=== PATIENT | female | born 1945 | race Caucasian/White ===

== ENCOUNTER 2016-05-19 10:10 | Outpatient (CLI) | payer MEDICARE, BC ==
[~2016-05-19] VITALS: Ht 165.1 cm; Wt 90.9 kg
--- NOTE | ~2016-05-19 | HEMODYNAMI ---
PATIENT:JHON RAJAN MEDICAL RECORD: [id number] : 49 LOCATION:QIAN ADMISSION DATE: 05/19/16 Generatedon:05/19/201612:51 Patient name: JHON RAJAN Patient #: [id number] SSN: : 1945 Date of study: 05/19/2016 Page: Of Hemodynamic Procedure Report Patient Data Patient Demographics Procedure consent was obtained First Name: JHON Gender: Female Last Name: MOHINI : 1945 [facility] Initial: RAJI Age: 71 year(s) Patient #: [id number] Race: Additional ID: [id number] Contact details [address]: [address] [place] [address] State: [place] City: [place] Zip code: [address] Past Medical History History of disease Date Diagnosis Comments CAD Allergies: No known allergies Admission Admission Data Admission Date: 05/19/2016 Admission Time: 10:10 Admit Source: Other Insurance Payor: Private health insurance, Medicare Height (in.): 65 BSA: 1.98 (m2) Height (cm.): 165.1 BMI: 33.45 (kg/m2) Weight (lbs.): 201 Weight (kg.): 91.17 Lab Results Lab Result Date: 05/19/2016 Lab Result Time: 10:45 Biochemistry Name Units Result Min Max Creatinine mg/dl 0.7 --(*---)-- 0.6 1.3 CBC Name Units Result Min Max Hemoglobin g/dl 12.6 -*(----)-- 13.5 17.5 Procedure Procedure Types Cath Procedure Diagnostic Procedure LHC LH w/Coronaries PCI Procedure Coronary Stent Initial Miscellaneous Procedures Moderate Sedation up to 30 minutes Procedure Description Procedure Date Procedure Date: 05/19/2016 Procedure Start Time: 12:18 Procedure End Time: 12:49 Procedure Staff Name Function Yosvany Morales MD Performing Physician Ann Jimenez RT Scrub Roxie Johnson RN Nurse Blas Richard RT Monitor Mike Alarcon RT Monitor Procedure Data Cath Procedure Fluoroscopy Diagnostic fluoroscopy Total fluoroscopy Time: 5.2 time: 5.2 min min Diagnostic fluoroscopy Total fluoroscopy dose: 874 dose: 874 mGy mGy Contrast Material Contrast Material Type Amount (ml) Isovue 300 94 Entry Location Entry Primary Successful Side Size Upsize Upsize Entry Closure Succes sful Closure Location (Fr) 1 (Fr) 2 (Fr) Remarks Device Remarks Femoral Right 5 Fr 6 Fr Vascade artery Short Closure System Estimated blood loss: 10 ml Diagnostic catheters Device Type Used For End Catheter Placement Cordis 5Fr Pigtail Procedure Catheter (MP) Cordis 5Fr JL 4.0 Procedure Catheter (MP) Cordis 5Fr 3DRC Catheter Procedure (MP) Procedure Medications Medication Administration Route Dosage Oxygen NC 2 l/min Lidocaine 2% added to field 20 Heparin Flush Bag added to field 2 bags (1000units/500ml NS) 0.9% NaCl I.V. 100 ml/hr Versed I.V. 1 mg Fentanyl I.V. 50 mcg Versed I.V. 1 mg Fentanyl I.V. 50 mcg Versed I.V. 1 mg Fentanyl I.V. 50 mcg Heparin Bolus I.V. 4000 units Versed I.V. 1 mg Fentanyl I.V. 50 mcg Radial Cocktail added to field 1 syringe (Verapomil 2mg/Nitro 400mcg/Heparin 1500units) Hemodynamics Rest BSA: 1.98 (m2) HGB: 12.6 (g/dl) O2 Consumption: Estimated: 179.04 (ml/min) O2 Co nsumption indexed: Estimated:90.42 (ml/min/m) Heart Rate: 65 (bpm) Snapshots Pre Cath Intra NCS Post Cath Vital Signs Time Heart Resp SPO2 etCO2 [id number] NIBP (mmHg) Rhythm Pain Sedatio n Rate (ipm) (%) (mmHg) (mmHg) Status Level (bpm) 12:14:54 65 16 95 0 0 Measuring NSR 0 (11) 10(A) , No pain 12:15:27 74 14 95 0 0 194/86(132) NSR 0 (11) 10(A) , No pain 12:19:51 70 16 96 0 0 186/101(136) NSR 0 (11) 9(A) , No pain 12:24:22 81 16 95 0 0 183/120(138) NSR 0 (11) 9(A) , No pain 12:28:50 78 16 95 0 0 197/102(152) NSR 0 (11) 9(A) , No pain 12:34:22 77 16 96 0 0 160/90(130) NSR 0 (11) 9(A) , No pain 12:39:48 79 17 97 0 0 169/94(133) NSR 0 (11) 10(A) , No pain 12:44:47 77 7 97 0 0 Measuring NSR 0 (11) 10(A) , No pain 12:45:15 97 0 0 163/87(130) NSR 0 (11) 10(A) , No pain Medications Time Medication Route Dose Verified Delivered Reason Note s Effectiveness by by 12:12:28 Oxygen NC 2 l/min Yosvany Buffie used for Carmen Johnson RN procedure 12:12:34 Lidocaine 2% added 20ml Yosvany Yosvany for local to vial Carmen Morales MD anesthetic field 12:12:39 Heparin Flush added 2 bags Yosvany Yosvany used for Bag to Carmen Morales MD procedure (1000units/500ml field NS) 12:12:49 0.9% NaCl I.V. 100 Yosvany Buffie Per physician ml/hr Carmen Johnson RN 12:13:59 Radial Cocktail added 1 Yosvany Buffie not (Verapomil to syringe Carmen Johnson RN used- 2mg/Nitro field femoral 400mcg/Heparin access 1500units) obtained 12:15:28 Versed I.V. 1 mg Yosvany Buffie for sedation Carmen Johnson RN 12:15:36 Fentanyl I.V. 50 mcg Yosvany Buffie for sedation Carmen Johnson RN 12:17:39 Versed I.V. 1 mg Yosvany Buffie for sedation Carmen Johnson RN 12:17:47 Fentanyl I.V. 50 mcg Yosvany Buffie for sedation Carmen Johnson RN 12:19:03 Versed I.V. 1 mg Yosvany Buffie for sedation Carmen Johnson RN 12:19:10 Fentanyl I.V. 50 mcg Yosvany Buffie for sedation Carmen Johnson RN 12:28:19 Heparin Bolus I.V. 4000 Yosvany Buffie for veri fied units Carmen Johnson RN anticoagulation with dr morales 12:32:22 Versed I.V. 1 mg Yosvany Faustin for sedation Carmen Johnson RN 12:32:25 Fentanyl I.V. 50 mcg Yosvany Faustin for sedation Carmen Johnson RN Procedure Log Time Note 11:30:50 Roxie Johnson RN sent for patient. Start room use. 11:50:56 Informed consent obtained and on chart 11:51:37 Patient Height : 65 inches 11:51:41 Patient Weight : 201 lbs 11:52:56 Time tracking: Regular hours 11:53:00 Plan of Care:Hemodynamics will remain stable., Cardiac rhythm will remain stable., Comfort level will be maintained., Respiratory function will remain adequate., Patient/ family verbilizes understanding of procedure., Procedure tolerated without complication., Recovers from procedure without complications.. 11:53:02 Diagnostic Cath status Elective 11:53:05 ACC Patient presents with Unstable Angina CCS Anginal Class 3--Marked limitation of physical activity, angina occurs with ordinary activity.. 11:53:53 H&P Date Dictated: 05/18/2016 Within 30 days and on chart., H&P Addendum completed by physician on day of procedure. (MUST COMPLETE FOR ALL OUTPATIENTS). 11:53:57 Admit Source: Other 11:54:07 Insurance Payor : Private health insurance, Medicare 11:55:39 Lab Result : Hemoglobin 12.6 g/dl 11:55:39 Lab Result : Creatinine 0.7 mg/dl 12:12:28 Oxygen 2 l/min NC was given by Roxie Johnson RN; used for procedure; 12:12:34 Lidocaine 2% 20ml vial added to field was given by Yosvany Morales MD; for local anesthetic; 12:12:39 Heparin Flush Bag (1000units/500ml NS) 2 bags added to field was given by Yosvany Morales MD; used for procedure; 12:12:49 0.9% NaCl 100 ml/hr I.V. was given by Roxie Johnson RN; Per physician; 12:13:03 Patient received from Outpatients to CCL 1 Alert and oriented. Tansferred to table in Supine position. 12:13:04 Warm blankets applied, and garrett hugger turned on for patient comfort. 12:13:04 Correct patient and procedure confirmed by team. 12:13:05 ECG and BP/O2 sat monitors applied to patient. 12:13:05 Vital chart was started 12:13:06 Baseline sample Acquired. 12:13:09 Rhythm: sinus rhythm 12:13:10 Full Disclosure recording started 12:13:10 Pre-procedure instructions explained to patient. 12:13:11 Pre-op teaching completed and patient verbalized understanding. 12:13:12 Family in waiting room. 12:13:14 Patient NPO since Midnight. 12:13:18 Patient allergic to No known allergies 12:13:20 Is the patient allergic to Iodine/contrast media? No. 12:13:21 Is patient on blood thinner?Yes 12:13:24 ACC The patient was administered the following blood thiners within the last 24 hours: ACCPlavix 12:13:25 Patient diabetic? Yes. 12:13:26 If diabetic: On Metformin? Yes 12:13:29 If on Metformin: Last Dose? 05/18/2016 12:13:33 Previous problem with sedation/anesthesia? No ? 12:13:33 Snore? Yes 12:13:34 Sleep apnea? No 12:13:35 Deviated septum? No 12:13:35 Opens mouth fully? Yes 12:13:36 Sticks out tongue? Yes 12:13:38 Airway obstruction? No ? 12:13:40 Dentures? No ? 12:13:42 Modified Chapo's test Ulnar < 7 seconds 12:13:44 Patient pain scale 2/10 ?. 12:13:50 IV patent on arrival in left hand with 0.9% NaCl at KVO. 12:13:55 Lab results completed and on chart. 12:13:59 Radial Cocktail (Verapomil 2mg/Nitro 400mcg/Heparin 1500units) 1 syringe added to field was given by Roxie Johnson RN; ; not used- femoral access obtained 12:13:59 Right Radial & Right Groin area was prepped with chlora-prep and draped in sterile fashion 12:14:00 Alarms reviewed by R. N. 12:14:00 Sharps counted by scrub and verified by R.N. 12:14:02 Use device set Radial Dx 12:14:04 Tegaderm 4 x 4 opened to sterile field. 12:14:04 Acist Manifold opened to sterile field. 12:14:05 Acist Hand Control opened to sterile field. 12:14:06 Acist Syringe opened to sterile field. 12:14:06 Cardinal Cath Pack opened to sterile field. 12:14:06 Bag Decanter opened to sterile field. 12:14:07 Terumo 6Fr Slender Glidesheath opened to sterile field. 12:14:07 St Mariano 260cm J .035 wire opened to sterile field. 12:14:14 Physician arrived 12::14 --------ALL STOP TIME OUT------ 12:14:15 Final Timeout: patient, procedure, and site verified with staff and physician. All members of the team are in agreement. 12:14:16 Right Radial & Right Groin site verified by team. 12:14:19 Physical assessment completed. ASA score P 2 - A patient with mild systemic disease as per Yosvany Morales MD. 12:14:22 Sedation plan: IV Moderate Sedation Versed, Fentanyl 12:15:28 Versed 1 mg I.V. was given by Roxie Johnson RN; for sedation; 12:15:36 Fentanyl 50 mcg I.V. was given by Roxie Johnson RN; for sedation; 12:17:39 Versed 1 mg I.V. was given by Roxie Johnson RN; for sedation; 12:17:47 Fentanyl 50 mcg I.V. was given by Roxie Johnson RN; for sedation; 12:18:01 Zero performed for pressure channel P1 12:18:40 Procedure started. 12:18:52 Local anesthetic to right radial artery with Lidocaine 2% by Yosvany Morales MD.INITIAL ACCESS ONLY 12:18:56 Local anesthetic to right femoral artery with Lidocaine 2% by Yosvany Morales MD.ADDITIONAL ACCESS 12:19:03 Versed 1 mg I.V. was given by Roxie Johnson RN; for sedation; 12:19:10 Fentanyl 50 mcg I.V. was given by Roxie Johnson RN; for sedation; 12:19:14 unable to gain radial access, moving to femoral approach. 12:19:58 Use device set Multipack Set 12:20:00 Cordis Infinity 5Fr Multipack catheter opened to sterile field. 12:20:08 Terumo 5Fr Ranger Sheath opened to sterile field. 12:20:11 A 5 Fr sheath was inserted into the Right Femoral artery 12:20:23 A Cordis 5Fr Pigtail Catheter (MP) was advanced over the wire and used for Procedure. 12:20:25 LV gram done using SHELDON 12:20:30 LV hemodynamics recorded. 12:20:35 Injector settings: Ml/sec: 10, Volume: 20, 12:20:50 EF : 50 % 12:20:57 Catheter exchanged over wire. 12:21:01 A Cordis 5Fr JL 4.0 Catheter (MP) was advanced over the wire and used for Procedure. 12:22:18 LCA angiography performed. 12:22:20 Catheter exchanged over wire. 12:22:25 A Cordis 5Fr 3DRC Catheter (MP) was advanced over the wire and used for Procedure. 12:23:00 RCA angiography performed. 12:23:49 Terumo 6Fr Ranger Sheath opened to sterile field. 12:23:56 Lopez Whisper J 300cm 0.014 guide wire opened to sterile field. 12:23:58 Madison Gambell Eagleye IVUS Catheter opened to sterile field. 12:24:07 [employer] BasixCompak Inflation Kit opened to sterile field. 12:24:11 Catheter removed. 12:24:31 Medtronic Launcher 6Fr 3DRC guide catheter opened to sterile field. 12:24:43 Sheath upsized to a 6 Fr Short. 12:24:52 6 Fr 3drc guide catheter was inserted over the wire 12:24:56 whisper wire advanced. 12:25:52 Wire advanced across lesion. 12:25:59 IVUS catheter advanced over wire. 12:26:02 IVUS pass to RCA lesion performed. 12:28:19 Heparin Bolus 4000 units I.V. was given by Roxie Johnson RN; for anticoagulation; verified with dr morales 12:30:40 IVUS catheter removed over wire. 12:31:17 ACC PCI Site: dRCA has 70% stenosis. 12:31:20 ACC Pre-intervention CASSIUS Flow is 2. 12:31:53 Inflation Number: 1 A Medtronic Integrity 4.0 X 18 stent was prepped and advanced across the Prox RCA. The stent was deployed at 13 SANTA for 0:10 (min:sec). 12:32:03 ACC Post-intervention CASSIUS Flow is 3. 12:32:03 Stent catheter was removed intact over wire. 12:32:22 Versed 1 mg I.V. was given by Roxie Johnson RN; for sedation; 12:32:25 Fentanyl 50 mcg I.V. was given by Roxie Johnson RN; for sedation; 12:33:54 Inflation Number: 1 A Medtronic Integrity 3.5 X 22 stent was prepped and advanced across the Dist RCA. The stent was deployed at 13 SANTA for 0:10 (min:sec). 12:34:43 Stent catheter was removed intact over wire. 12:35:00 Wire removed. 12:35:00 Guide catheter removed. 12:35:14 Vascade 6/7 Fr Closure Device opened to sterile field. 12:35:30 Sheath removed intact; hemostasis achieved with Vascade Closure System to the Right Femoral artery. 12:35:35 Procedure ended.(Physican Out) 12:37:08 Fluoroscopy time 05.20 minutes. 12:37:16 Fluoroscopy dose: 874 mGy 12:37:16 Flurop Dose total: 874 12:37:25 Contrast amount:Isovue 300 94ml. 12:37:27 Sharps counted by scrub and verified by R.N. 12:41:41 Insertion/operative site no bleeding no hematoma. 12:41:45 Post-op/insertion site Right Femoral artery dressed using a 4 x 4 and Tegaderm. 12:41:53 Post right femoral artery:stable 12:42:07 Post Procedure Pulses reassessed and unchanged 12:42:18 Post-procedure physical assessment completed. ASA score P 2 - A patient with mild systemic disease as per Yosvany Morales MD. 12:42:23 Post procedure rhythm: unchanged. 12:42:28 Estimated blood loss: 10 ml 12:42:30 Post procedure instruction explained to patient.Patient verbalizes understanding. 12:42:31 Patient needs reinforcement of post procedure teaching. 12:44:30 Procedure type changed to Cath procedure, Diagnostic procedure, LHC, LHC w/Coronaries, PCI procedure, Coronary Stent Initial, Miscellaneous Procedures, Moderate Sedation up to 30 minutes 12:48:02 Vital chart was stopped 12:48:03 See physician's report for complete and final results. 12:48:11 Report given to Post Procedure Room. 12:48:59 Patient transfered to Post Procedure Room with Stretcher. 12:49:03 Procedure ended. 12:49:04 Full Disclosure recording stopped 12:49:19 ACC-PCI Only Patient was given prescriptions, or instructed by Yosvany Morales MD to start/continue the following medications upon discharge: Plavix 12:49:32 End room use (Document Last) Intervention Summary Intervention Notes Time ActionType Lesion and Equipment Action# Pressure Duration Attributes Used 12:31:53 Place stent Prox RCA Medtronic 1 13 00:10 Integrity 4.0 X 18 stent 12:33:54 Place stent Dist RCA Medtronic 1 13 00:10 Integrity 3.5 X 22 stent Device Usage Item Name Manufacture Quantity Catalog Hospital Part Current Minima l Lot# / Number Charge Number Stock Stock Serial# Code Tegaderm 4 3M 1 1626W [id number] 780347 579571 5 x 4 Acist Acist 1 41249 834774 930805 432167 5 Manifold Medical Systems Inc Acist Hand Acist 1 11332 654623 388020 496593 5 Control Medical Systems Inc Acist Acist 1 28687 616041 509862 882951 20 Syringe Medical Systems Inc Cardinal Cardinal [address] 056122 94017 405001 5 Cath Pack Health Bag Microtek 1 2002S 379252 56925 233539 5 Navagis [employer] Inc. Terumo 6Fr Terumo 1 [id number] 447925 902750 077364 [address] Mariano St Mariano 1 160274 127551 178808 763472 30 260cm J .035 wire Cordis Cardinal 1 [id number] 557557 89681 215415 30 Infinity Health 5Fr Multipack catheter Terumo 5Fr Terumo 1 [id number] 906351 957305 413446 40 Ranger Sheath Cordis 5Fr Cardinal 1 285180 5 Pigtail Health Catheter (MP) Cordis 5Fr Cardinal 1 [id number] 5 JL 4.0 Health Catheter (MP) Cordis 5Fr Cardinal 1 370645 5 3DRC Health Catheter (MP) Terumo 6Fr Terumo 1 [id number] 022934 474140 934490 40 Ranger Sheath Lopez Lopez 1 [id number] 050146 649986 906275 5 Whisper J Vascular 300cm 0.014 guide wire Madison Madison 1 [id number] 464016 759337 348618 8 Gambell Eagleye IVUS Catheter Merit Merit 1 [id number] 840220 068804 610814 15 BasixCompak Medical Inflation Kit Medtronic Medtronic 1 [id number] 893045 178666 634715 1 Launcher 6Fr 3DRC guide catheter Medtronic Medtronic 1 [id number] 730051 384356 665994 5 [id number] Integrity 4.0 X 18 stent Medtronic Medtronic 1 [id number] 946818 875227 3 [id number] Integrity 3.5 X 22 stent Vascade 6/7 Cardiva 1 [id number] 159296 411072 631076 5 Fr Closure Medical, Device Inc. Signature Audit [place] Stage Time Signature Unsigned Intra-Procedure 05/19/2016 Mike Alarcon 12:51:29 PM RT(R) (CV) Signatures Monitor : Blas Richard RT Signature : Date : Time : Monitor : Mike Alarcon RT Signature : Date : Time : [place] [id number]
[~2016-05-19 10:10] MED LIST: ASPIRIN325 MG PO; BAYER ASPIRIN325 MG PO; BAYER CHEWABLE81 MG PO; EFFEXOR XR150 MG PO; EFFEXOR XR75 MG PO; EZFE 200200 MG; GLIMEPIRIDE4 MG PO; GLUCOPHAGE500 MG PO; JANUVIA100 MG PO; LOPRESSOR50 MG PO; MACROBID100 MG PO; MELATONIN 3 MG1 TAB PO; METOPROLOL TART50 MG PO; MICROBID PO; MULTI-DAY VITAM1 TAB PO; PEPCID20 MG; PLAVIX75 MG PO; PRAVACHOL20 MG PO; PRAVACHOL40 MG PO; PRINZIDE 10/12.1 TAB PO; PROTONIX40 MG PO; SYNTHROID75 MCG PO; SYNTHROID88 MCG PO; VITAMIN D2000 UNIT PO
[2016-05-19 10:39] VITALS: BP 171/69; Ht 165.1 cm; Wt 90.9 kg
[2016-05-19] MEDS ORDERED: MACROBID100 MG PO (10:47)
[2016-05-19 10:48] LABS: BASOPHILS 0.1 % (0.0-2.0); EOSINOPHILS 3.2 % (0-7); HEMATOCRIT 39.5 % (36.0-48.0); HEMOGLOBIN 12.6 g/dL (12-16); IMMATURE GRANULOCYTES 0.3 % (0-5); LYMPHOCYTES 35.8 % (15-50); MCH 29.2 pg (26.0-34.0); MCHC 31.9 g/dL (31.0-37.0); MCV 91.4 fL (80.0-100.0); MEAN PLATELET VOLUME 10.8 fL (7.4-10.4); MONOCYTES 8.9 % (2-11); NEUTROPHILS 51.7 % (40-80); PLATELET COUNT 261 10x3/uL (130-400); RBC 4.32 10x6/uL (4.00-5.40); RDW 13.9 % (11.5-14.5); WBC 7.3 10x3/uL (4.8-10.8)
[2016-05-19 11:08] LABS: CALC OSMOLALITY 286 mosm/kg (275-300); CALCIUM 8.9 mg/dL (8.5-10.1); CARBON DIOXIDE 31.8 mmol/L (21.0-32.0); CHLORIDE - SERUM 101 mmol/L (98-107); CREATININE - SERUM 0.7 mg/dL (0.6-1.3); GLUCOSE 257 mg/dL (74-106); POTASSIUM - SERUM 4.3 mmol/L (3.5-5.1); SODIUM 139 mmol/L (136-145); UREA NITROGEN 13 mg/dL (7-18); eGFR NON AFRICAN AMERICAN 88 mL/min (90-120)
[2016-05-19] MEDS ORDERED: NORVASC5 MG PO (13:01)
--- NOTE | 2016-05-19 13:15 | NUR ---
1315-RIGHT GROIN- CDI NO HEMATOMA NOTED.
--- NOTE | 2016-05-19 13:59 | OP ---
PATIENT NAME: JHON RAJAN MEDICAL RECORD: [id number] :49 LOCATION:D.CAT ADMISSION DATE: SURGEON: VENKAT TEJEDA MD DATE OF OPERATION: 05/19/2016 PROCEDURES: 1. PTCA stent, RCA. 2. Intravascular ultrasound, RCA. 3. Left heart catheterization. 4. Selective coronary angiography. 5. Left ventriculogram. INDICATIONS: Angina and coronary artery disease. PROCEDURE IN DETAIL: After informed consent was obtained and after a detailed explanation of risks, benefits as well as alternative therapies, the patient elected to proceed with angiogram and angioplasty. The right femoral area was prepped and draped in normal sterile fashion. The right femoral artery was cannulated via modified Seldinger technique with placement of 6-Faroese sheath. All catheters exchanged through this sheath. FINDINGS: Left ventriculogram was performed in standard 30-degree SHELDON view, reveals good cardiac wall motion throughout all segments. Overall ejection fraction estimated at 60%. SELECTIVE CORONARY ANGIOGRAPHY: 1. Left main showed no significant angiographic disease. 2. Left anterior descending has previously placed stents, these are widely patent with no significant restenosis. 3. Left circumflex has moderate irregularities, but no flow-limiting stenosis. 4. The right coronary has previously placed stents, these are widely patient; however, intravascular ultrasound confirmed that there is 75% stenosis proximal and distal to the previously-placed stent. PTCA STENT OF THE RCA: The stent used proximal was 4.0 x 18 and distal was a 3.5 x 22, both Integrity stents. Result was 0% residual stenosis. OVERALL IMPRESSION: Successful percutaneous transluminal coronary angioplasty stent of the right coronary artery going from 75% initial stenosis times 2 to 0% residual. TRANSINT:[id number] Voice Confirmation ID: [id number] DOCUMENT ID: [id number] VENKAT TEJEDA MD at 1359 CC: [id number] DICTATION DATE: 05/19/16 1238 SCREW EYE ASSEMBLER: 05/19/16 [address] [place] [address]
--- NOTE | 2016-05-19 14:21 | NUR ---
1345-right groin- cdi
--- NOTE | 2016-07-07 08:41 | HP ---
PATIENT: JHON RAJAN MEDICAL RECORD: [id number] ACCOUNT: [id number] LOCATION:QIAN : 49 ADMISSION DATE: 05/19/16 HISTORY AND PHYSICAL EXAMINATION DIAGNOSES: 1. Angina. 2. Coronary artery disease. HISTORY OF PRESENT ILLNESS: Mrs. Rajan presents with increasing episodes of chest pain, chest discomfort compatible with angina. She has a past history of coronary artery disease. Her angina is increasing in an unstable fashion. PHYSICAL EXAMINATION: GENERAL APPEARANCE: Well-nourished, well-developed, appears stated age. Level of distress, comfortable. PSYCHIATRIC: Mental status, alert, normal affect. Orientation, oriented to time, place and person. EYES: Lids and conjunctiva, noninjected. No discharge, no pallor. ENT: Lips, teeth, gums, normal dentition. Oropharynx, no cyanosis, no pallor. NECK: Carotid arteries, bilateral normal upstroke, no bruits, no thrills. JUGULAR VEINS: No jugular venous pressure or distention. CERVICAL LYMPH NODES: Nontender, nonenlarged. THYROID: Not enlarged. Nontender. No nodules. LUNGS: Respiratory effort, unlabored. CHEST: Normal curvature. No thoracic deformity. No chest wall tenderness. Percussion, resonant. Auscultation, clear. No wheezes, no rales, no rhonchi. CARDIOVASCULAR: Precordial exam, nondisplaced. No heaves or pericardial thrills. Rate and rhythm, regular. Heart sounds, normal S1, normal S2. No S3, no gallop, no rub. Systolic murmur, not heard. Diastolic murmur, not heard. EXTREMITIES: No cyanosis, no edema. Peripheral pulses, full and equal in all extremities, except as noted. No bruits appreciated. ABDOMEN: Soft, nondistended. Normal aorta. No bruit. Nontender. No masses. Liver, nontender, no hepatomegaly. Spleen, nontender, no splenomegaly. MUSCULOSKELETAL: No joint tenderness. No joint swelling. No erythema. NEUROLOGICAL: Normal gait, normal strength, normal tone. SKIN: Warm and dry. REVIEW OF SYSTEMS: The patient reports easy bruising but reports no swollen glands. The patient reports no fever, no night sweats, no significant weight gain, no significant weight loss. No significant exercise tolerance. The patient reports no dry eyes, no irritation, no vision change. Patient reports no difficulty hearing and no ear pain. Patient reports no frequent nose bleeds or nose and sinus problems. Patient reports on arm pain on exertion. No shortness of breath while lying down. No history of heart murmur. Patient reports no cough, no wheezing or coughing up blood. Patient reports no abdominal pain, no vomiting. Normal appetite. No diarrhea and not vomiting blood. No nausea and no constipation. Patient reports no incontinence. No difficulty urinating. No hematuria. No increased frequency. Patient reports no muscle aches. No weakness, no arthralgias, no back pain. No swelling of the extremities. Patient reports no abnormal mole, no jaundice, no rashes. Reports no loss of consciousness. No weakness and no numbness. No seizures, dizziness, or headaches. The patient reports no depression, no sleep disturbance, feeling safe in a relationship and no alcohol abuse. Patient reports on fatigue. Reports no runny nose or sinus pressure. No itching, no hives, and no frequent HISTORY AND PHYSICAL [id number] JHON RAJAN sneezing. OVERALL IMPRESSION: Angina, unstable fashion, most likely she has hemodynamically significant coronary artery disease that is recurrent. We will proceed with coronary angiography. Further care depends upon findings of the angiography. TRANSINT:[id number] Voice Confirmation ID: [id number] DOCUMENT ID: [id number] VENKAT TEJEDA MD at 0841 CC: [id number] DICTATION DATE: 07/05/[address] INSPECTOR: 07/05/16 1636 DEP CLI 05/19/16 [place] [id number] [place] [id number]
== END 2016-05-19 17:00 | disposition home or self-care (01) ==
LOC: D.CATH 10:10
PROVIDERS: Internal Medicine Interventional Cardiology
DX: I25.119 Atherosclerotic heart disease of native coronary artery with unspecified angina pectoris (principal); Z95.5 Presence of coronary angioplasty implant and graft

== ENCOUNTER 2017-05-23 08:27 | Observation (INO) | payer MEDICARE, BC ==
[~2017-05-23] VITALS: Ht 165.1 cm; Wt 47.3 kg
--- NOTE | ~2017-05-23 | HEMODYNAMI ---
PATIENT:JHON RAJAN MEDICAL RECORD: [id number] : 49 LOCATION:[facility] ADMISSION DATE: 05/23/17 Generatedon:05/23/201712:06 Patient name: JHON RAJAN Patient #: [id number] SSN: : 1945 Date of study: 05/23/2017 Page: Of Hemodynamic Procedure Report Patient Data Patient Demographics Procedure consent was obtained First Name: JHON Gender: Female Last Name: MOHINI : 1945 Middle Initial: RAJI Age: 72 year(s) Patient #: [id number] Race: Additional ID: [id number] Contact details Address: [address] [place] [address] State: [place] City: [place] Zip code: [address] Past Medical History History of disease Date Diagnosis Comments CAD Allergies: No known allergies Admission Admission Data Admission Date: 05/23/2017 Admission Time: 8:27 Lab Results Lab Result Date: 05/23/2017 Lab Result Time: 0:00 Biochemistry Name Units Result Min Max BUN mg/dl 14 --(--*-)-- 7 18 Creatinine mg/dl 0.8 --(-*--)-- 0.6 1.3 CBC Name Units Result Min Max Hemoglobin g/dl 12.7 -*(----)-- 13.5 17.5 Procedure Procedure Types Cath Procedure Diagnostic Procedure [facility] w/Coronaries FFR/IVUS Intra-Coronary IVUS Initial PCI Procedure Coronary Stent Coronary Stent Initial Procedure Description Procedure Date Procedure Date: 05/23/2017 Procedure Start Time: 11:45 Procedure End Time: 12:04 Procedure Staff Name Function Roxie Johnson RN Linen Folder Yosvany Morales MD Performing Physician Blas Richard RT Monitor Kiersten Flores RT Scrub Sanju Baker RN Nurse Procedure Data Cath Procedure Fluoroscopy Diagnostic fluoroscopy Total fluoroscopy Time: 4.3 time: 4.3 min min Diagnostic fluoroscopy Total fluoroscopy dose: 586 dose: 586 mGy mGy Contrast Material Contrast Material Type Amount (ml) Isovue 300 63 Entry Location Entry Primary Successful Side Size Upsize Upsize Entry Closure [place] ccessful Closure Location (Fr) 1 (Fr) 2 (Fr) Remarks Device Remarks Radial Right 6 Fr Mechanical artery Short Compression Estimated blood loss: 10 ml Diagnostic catheters Device Type Used For End Catheter Placement DIAGNOSTIC Dundee 110cm 5 Procedure Fr catheter ([id number]) Procedure Complications No complications Procedure Medications Medication Administration Route Dosage 0.9% NaCl I.V. 100 ml/hr Oxygen NC 2 l/min Heparin Flush Bag added to field 2 bags (1000units/500ml NS) Lidocaine 2% added to field 20 Radial Cocktail added to field 1 syringe (Verapomil 2mg/Nitro 400mcg/Heparin 1500units) Versed I.V. 1 mg Fentanyl I.V. 50 mcg Radial Cocktail I.A. 1 syringe (Verapomil 2mg/Nitro 400mcg/Heparin 1500units) Heparin Bolus I.V. 4000 units Versed I.V. 1 mg Fentanyl I.V. 50 mcg Plavix P.O. 75 mg Hemodynamics Rest HGB: 12.7 (g/dl) Heart Rate: 80 (bpm) Pressure Samples Time Site Value (mmHg) Purpose Heart Use Rate(bpm) 11:46 LV 39/39,35 Snapshot 105 Snapshots Pre Cath Intra NCS Post Cath Vital Signs Time Heart Resp SPO2 etCO2 NIBP (mmHg) Rhythm Pain Sedation Rate (ipm) (%) (mmHg) Status Level (bpm) 11:37:21 75 14 97 45.7 164/73(122) NSR 0 (11) 10(A) , No pain 11:42:09 90 18 97 47.9 159/81(112) NSR 0 (11) 10(A) , No pain 11:46:50 80 16 98 42.6 131/78(123) NSR 0 (11) 9(A) , No pain 11:52:18 90 18 96 42.6 153/72(107) NSR 0 (11) 9(A) , No pain 11:57:06 83 14 98 42.6 152/75(130) NSR 0 (11) 10(A) , No pain 12:01:55 81 17 98 44.9 153/79(128) NSR 0 (11) 10(A) , No pain Medications Time Medication Route Dose Verified Delivered Reason Note s Effectiveness by by 11:35:31 0.9% NaCl I.V. 100 Sanju Sanju Per physician ml/hr Olivia Baker RN RN 11:35:42 Oxygen NC 2 l/min Sanju Sanju Per physician Olivia Baker RN RN 11:35:58 Heparin Flush added 2 bags Sanju Sanju used for Bag to Olivia Baker procedure (1000units/500ml field RN RN NS) 11:36:11 Lidocaine 2% added 20ml Sanju Sanju for local to vial Lorbhavesh Baker anesthetic RN RN 11:39:37 Radial Cocktail added 1 Sanju Sanju used for (Verapomil to syringe Olivia Baker procedure 2mg/Nitro field RN RN 400mcg/Heparin 1500units) 11:43:12 Fentanyl I.V. 50 mcg Sanju Sanju for sedation Olivia Baker RN RN 11:43:25 Versed I.V. 1 mg Sanju Sanju for sedation Olivia Baker RN RN 11:46:09 Radial Cocktail I.A. 1 Sanju Yosvany for (Verapomil syringe Olivia Morales MD vasodilation 2mg/Nitro RN 400mcg/Heparin 1500units) 11:51:04 Heparin Bolus I.V. 4000 Sanju Sanju for units Olivia Baker anticoagulation RN RN 11:55:04 Versed I.V. 1 mg Sanju Sanju for sedation Olivia Baker RN RN 11:55:13 Fentanyl I.V. 50 mcg Sanju Sanju for sedation Olivia Baker RN RN 11:56:41 Plavix P.O. 75 mg Sanju Sanju for Olivia Baker antiplatelet RN RN therapy Procedure Log Time Note 11:16:06 Roxie Johnson RN sent for patient. Start room use. 11:16:06 Time tracking: Regular hours 11:16:11 Plan of Care:Hemodynamics will remain stable., Cardiac rhythm will remain stable., Comfort level will be maintained., Respiratory function will remain adequate., Patient/ family verbilizes understanding of procedure., Procedure tolerated without complication., Recovers from procedure without complications.. 11:16:20 Signed procedure consent form obtained from patient. 11:16:27 H&P Date Dictated: 05/22/2017 Within 30 days and on chart., H&P Addendum completed by physician on day of procedure. (MUST COMPLETE FOR ALL OUTPATIENTS). 11::44 Lab Result : BUN 14 mg/dl 11::44 Lab Result : Creatinine 0.8 mg/dl ::44 Lab Result : Hemoglobin 12.7 g/dl 11:18:29 Patient allergic to No known allergies 11:24:03 Patient received from Pre/Post Procedure Room to CCL 1 Alert and oriented. Tansferred to table in Supine position. 11:24:04 Warm blankets applied, and garrett hugger turned on for patient comfort. 11:24:05 Correct patient and procedure confirmed by team. 11:24:06 ECG and BP/O2 sat monitors applied to patient. 11:24:07 Pre-procedure instructions explained to patient. 11:24:08 Pre-op teaching completed and patient verbalized understanding. 11:24:09 Family in waiting room. 11:24:11 Patient NPO since Midnight. 11:24:21 Is patient on blood thinner?No 11:35:31 0.9% NaCl 100 ml/hr I.V. was administered by Sanju Baker RN; Per physician; 11:35:42 Oxygen 2 l/min NC was administered by Sanju Baker RN; Per physician; 11:35:58 Heparin Flush Bag (1000units/500ml NS) 2 bags added to field was administered by Sanju Baker RN; used for procedure; 11:36:11 Lidocaine 2% 20ml vial added to field was administered by Sanju Baker RN; for local anesthetic; 11:36:20 Vital chart was started 11:39:37 Radial Cocktail (Verapomil 2mg/Nitro 400mcg/Heparin 1500units) 1 syringe added to field was administered by Sanju Baker RN; used for procedure; 11:40:14 Diagnostic Cath status Elective 11:40:15 Baseline sample Acquired. 11:40:19 Rhythm: sinus rhythm 11:40:38 Is the patient allergic to Iodine/contrast media? No. 11:40:39 Patient diabetic? Yes. 11:40:41 If diabetic: On Metformin? Yes 11:40:44 If on Metformin: Last Dose? 05/21/2017 11:40:47 Previous problem with sedation/anesthesia? No ? 11:40:52 Snore? No 11:40:54 Sleep apnea? No 11:40:54 Deviated septum? No 11:40:55 Opens mouth fully? Yes 11:40:56 Sticks out tongue? Yes 11:40:58 Airway obstruction? No ? 11:41:00 Dentures? Yes upper 11:41:03 Pre procedure: right dorsailis pedis pulse 1+ Palpable, but thready & weak; easily obliterated 11:41:06 Modified Chapo's test Ulnar < 7 seconds 11:41:07 Patient pain scale 0/10 ?. 11:41:11 IV patent on arrival in left forearm with 0.9% NaCl at [facility]. 11:41:14 Lab results completed and on chart. 11:41:16 Right Radial & Right Groin area was prepped with chlora-prep and draped in sterile fashion 11:41:17 Alarms reviewed by R. N. 11:41:18 Sharps counted by scrub and verified by R.N. 11:41:20 Use device set Radial Dx or PCI 11:41:21 ACIST Syringe (00652) opened to sterile field. 11:41:21 Medline Cath Pack ([id number]) opened to sterile field. 11:41:23 Bag Decanter (2002S) opened to sterile field. 11:41:24 Tegaderm 4 x 4 (1626W) opened to sterile field. 11:41:25 ACIST Manifold (21122) opened to sterile field. 11:41:25 ACIST Hand Control (94509) opened to sterile field. 11:41:26 MBrace Wrist Support ([id number]) opened to sterile field. 11:41:29 SHEATH 6FR Slender ([id number]) opened to sterile field. 11:42:09 Physician arrived 11:42:09 --------ALL STOP TIME OUT------ 11:42:10 Final Timeout: patient, procedure, and site verified with staff and physician. All members of the team are in agreement. 11:42:11 Right Radial & Right Groin site verified by team. 11:42:14 Physical assessment completed. ASA score P 2 - A patient with mild systemic disease as per Yosvany Morales MD. 11:42:18 Sedation plan: IV Moderate Sedation Medication:Versed, Fentanyl 11:43:12 Fentanyl 50 mcg I.V. was administered by Sanju Baker RN; for sedation; 11:43:25 Versed 1 mg I.V. was administered by Sanju Baker RN; for sedation; 11:45:21 Zero performed for pressure channel P1 11:45:47 Procedure started. 11:45:47 Full Disclosure recording started 11:45:53 Local anesthetic to right radial artery with Lidocaine 2% by Yosvany Morales MD.INITIAL ACCESS ONLY 11:45:59 A 6 Fr Short sheath was inserted into the Right Radial artery 11:46:05 A DIAGNOSTIC Dundee 110cm 5 Fr catheter ([id number]) was advanced over the wire and used for Procedure. 11:46:09 Radial Cocktail (Verapomil 2mg/Nitro 400mcg/Heparin 1500units) 1 syringe I.A. was administered by Yosvany Morales MD; for vasodilation; 11:46:17 Zero performed for pressure channel P1 11:46:51 LV gram done using SHELDON 11:46:53 Injector settings: Ml/sec: 5, Volume: 15, 11:47:06 EF : 60 % 11:47:33 LCA angiography performed. 11:48:12 RCA angiography performed. 11:48:34 Catheter removed. 11:49:38 GRAPHIX 182cm guide wire ([id number]) opened to sterile field. 11:49:50 INFLATOR Merit BasixCompak (DJ2280) opened to sterile field. 11:49:51 GUIDE 6FR HS I catheter (LA6HSI) opened to sterile field. 11:49:56 Rochelle Quechan Eagleye IVUS Catheter (79691V) opened to sterile field. 11:50:14 6 Fr HSI guide catheter was inserted over the wire 11:50:19 pt graphix wire advanced. 11:51:04 Heparin Bolus 4000 units I.V. was administered by Sanju Baker RN; for anticoagulation; 11:51:07 Wire advanced across lesion. 11:51:11 IVUS catheter advanced over wire. 11:53:23 IVUS pass to RCA lesion performed. 11:53:24 IVUS catheter removed over wire. 11:55:04 Versed 1 mg I.V. was administered by Sanju Baker RN; for sedation; 11:55:05 Inflation Number: 1 A CARMINE RX 4.0 x 18 stent ([id number]) was prepped and advanced across the Mid RCA. The stent was deployed at 21 SANTA for 0:10 (min:sec). 11:55:12 Inflation number: 2 The stent balloon was then re-inflated across the Mid RCA to 21 SANTA for 0:10 (min:sec). 11:55:13 Fentanyl 50 mcg I.V. was administered by Sanju Baker RN; for sedation; 11:56:03 Stent catheter was removed intact over wire. 11:56:04 Wire removed. 11:56:06 Guide catheter removed. 11:56:14 TR BAND Large ([id number]) opened to sterile field. 11:56:16 DIAGNOSTIC WIRE .035 260cm J wire (294087) opened to sterile field. 11:56:26 Sheath removed intact; hemostasis achieved with Mechanical Compression to the Right Radial artery. 11:56:27 Procedure ended.(Physican Out) 11:56:41 Plavix 75 mg P.O. was administered by Sanju Baker RN; for antiplatelet therapy; 11:57:12 Fluoroscopy time 04.30 minutes. 11:57:17 Flurop Dose total: 586 11:57:17 Fluoroscopy dose: 586 mGy 11:57:29 Contrast amount:Isovue 300 63ml. 11:57:30 Sharps counted by scrub and verified by R.N. 11:57:32 TR band inflated with 12cc of air. 11:57:33 Insertion/operative site no bleeding no hematoma. 11:57:37 Post Procedure Pulses reassessed and unchanged 11:58:29 Post-procedure physical assessment completed. ASA score P 2 - A patient with mild systemic disease as per Yosvany Morales MD. 11:58:31 Post procedure rhythm: unchanged. 11:58:34 Estimated blood loss: 10 ml 11:58:35 Post procedure instruction explained to patient.Patient verbalizes understanding. 11:58:37 Patient needs reinforcement of post procedure teaching. 11:59:04 Procedure type changed to Cath procedure, Diagnostic procedure, LHC, LHC w/Coronaries, FFR/IVUS, Intra-Coronary IVUS Initial, PCI procedure, Coronary Stent, Coronary Stent Initial 12:04:28 Procedure and supply charges have been captured, reviewed, submitted and are correct. 12:04:31 Procedure Complication : No complications 12:04:34 Vital chart was stopped 12:04:34 See physician's report for complete and final results. 12:04:35 Report given to Pre/Post Procedure Room. 12:04:37 Patient transfered to Pre/Post Procedure Room with Stretcher. 12:04:39 Procedure ended. 12:04:39 Full Disclosure recording stopped 12:04:57 End room use (Document Last) Intervention Summary Intervention Notes Time ActionType Lesion and Equipment Used Action# Pressure Duration Attributes 11:55:05 Place stent Mid RCA CARMINE RX 4.0 x 1 21 00:10 18 stent ([id number]) 11:55:12 Reinflate Mid RCA CARMINE RX 4.0 x 2 21 00:10 stent 18 stent balloon ([id number]) Device Usage Item Name Manufacture Quantity Catalog Number Hospital Part Current M inimal Lot# / Charge Number Stock Stock Serial# Code ACIST Syringe Acist 1 75480 729406 921948 179771 2 0 (13775) Medical Systems Inc Medline Cath Cardinal 1 [id number] 865009 02736 264775 5 Mapado ([id number]) Bag Decanter Microtek 1 2001S 505543 38092 208699 5 (2001S) Medical Inc. Tegaderm 4 x 4 3M 1 1626W 799787 279790 823667 5 (1626W) ACIST Manifold Acist 1 44353 523407 637987 752944 5 (44460) Medical Systems Inc ACIST Hand Acist 1 58610 410734 720547 429694 5 Control Medical (52897) Systems Inc MBrace Wrist Advanced 1 140-0250-00 259383 19745 336947 5 Support Vascular ([id number]) Dynamics SHEATH 6FR Terumo 1 [id number] 333594 539528 071438 4 0 Slender ([id number]) DIAGNOSTIC Terumo 1 40-4886 577333 080711 777145 5 Dundee 110cm 5 Fr catheter (613480) INFLATOR Merit Merit 1 WU7583 537508 729472 185254 1 5 Neul (IM8775) GUIDE 6FR HS I Medtronic 1 LA6HSI 416634 32543 350588 1 catheter (LA6HSI) Rochelle Rochelle 1 96673W 785609 168082 386588 8 Quechan Eagleye IVUS Catheter (53294N) CARMINE RX 4.0 x Medtronic 1 [id number] 623109 8503173 497761 5 [id number] 18 stent ([id number]) DIAGNOSTIC St Mariano 1 499455 039076 009082 880778 3 0 WIRE .035 260cm J wire (459905) TR BAND Large Terumo 1 [id number] 432775 685907 449723 4 0 ([id number]) GRAPHIX 182cm [place] 1 [id number] 583516 121792 818985 5 guide wire [employer] ([id number]) Signature Audit [place] Stage Time Signature Unsigned Intra-Procedure 05/23/2017 Blas Richard 12:06:51 PM RT(R) Signatures Monitor : Blas Rihcard RT Signature : Date : Time : [id number] [place] [address]
--- NOTE | ~2017-05-23 | DS ---
PATIENT:JHON RAJAN :49 MEDICAL RECORD: [id number] DISCHARGE SUMMARY ADMISSION DATE: 05/23/17 DISCHARGE DATE: DATE OF DISCHARGE: 05/24/2017. DIAGNOSES: 1. Angina. 2. Coronary artery disease. 3. Percutaneous transluminal coronary angioplasty stent right coronary artery and left anterior descending this admission. HOSPITAL COURSE: Mrs. Rajan presents with unstable anginal symptomatology, found to have 2-vessel disease of the RCA and LAD, underwent successful PTCA stent of above territories, had an uneventful postop course, was discharged home to follow up in 1 month with the addition of aspirin and Plavix to her medical regimen. TRANSINT:[id number] Voice Confirmation ID: [id number] DOCUMENT ID: [id number] VENKAT TEJEDA MD CC: [id number] DICTATION DATE: 05/24/17 1238 LOAN REVIEWER: 05/24/17 1247 ADM IN [address] [id number] [place] [address]
--- NOTE | ~2017-05-23 | OP ---
PATIENT NAME: JHON RAJAN MEDICAL RECORD: [id number] :49 LOCATION:D.CAT ADMISSION DATE: SURGEON: VENKAT TEJEDA MD DATE OF OPERATION: 05/23/2017 PROCEDURES: 1. PTCA stent to RCA. 2. Intravascular ultrasound. 3. Left heart catheterization. 4. Selective coronary angiography. 5. Left ventriculogram. INDICATION: Angina and coronary artery disease. PROCEDURE IN DETAIL: After informed consent was obtained and after detailed explanation of risks, benefits as well as alternative therapies, the patient elected to proceed with angiogram and angioplasty. The right radial area was prepped and draped in normal sterile fashion. The right radial artery was cannulated via modified Seldinger technique with placement of 6-Emirati sheath. All catheters exchanged through this sheath. FINDINGS: The left ventriculogram was performed in standard 30-degree SHELDON view, reveals good cardiac wall motion throughout all segments. Overall ejection fraction estimated at 60%. SELECTIVE CORONARY ANGIOGRAPHY: 1. Left main showed no significant angiographic disease. 2. Left anterior descending has previously placed stents with up to 80% in-stent restenosis in the mid vessel. 3. The left circumflex has moderate irregularities, but no flow-limiting stenosis. 4. The right coronary artery has previously placed stents. Proximal to this, there is greater than 75% stenosis confirmed by intravascular ultrasound. PTCA STENT OF THE RCA: The stent used is 4.0 x 18 mm Astatula taken to 17 atmospheres. Result was 0% residual stenosis. OVERALL IMPRESSION: Successful percutaneous transluminal coronary angioplasty stent of the right coronary artery going from 75% initial stenosis to 0% residual. TRANSINT:[id number] Voice Confirmation ID: [id number] DOCUMENT ID: [id number] VENKAT TEJEDA MD CC: [id number] DICTATION DATE: 05/23/17 1202 AUDIO VIDEO MECHANIC: 05/23/17 1221 [facility] [address] [place] [address]
--- NOTE | ~2017-05-23 | OP ---
PATIENT NAME: JHON RAJAN MEDICAL RECORD: [id number] :49 LOCATION:D.M2 D.0 ADMISSION DATE:05/23/17 SURGEON: VENKAT TEJEDA MD DATE OF OPERATION: 05/24/2017 PROCEDURES: 1. PTCA stent to LAD. 2. Selective coronary angiography. INDICATION: Angina and coronary artery disease. DESCRIPTION OF PROCEDURE: After informed consent was obtained and after detailed explanation of risks, benefits as well as alternative therapies, the patient elected to proceed with angiogram and angioplasty. The right radial area was prepped and draped in normal sterile fashion. Right radial artery was cannulated via modified Seldinger technique with placement of 6-Gu[place] sheath. All catheters exchanged through this sheath. FINDINGS: The left anterior descending has 90% in-stent restenosis proximally. This was addressed with a 3.5 x 8 mm Rico stent taken to 23 atmospheres. Result was 0% residual stenosis. OVERALL IMPRESSION: Successful percutaneous transluminal coronary angioplasty stent of the left anterior descending going from 95% initial stenosis to 0% residual. TRANSINT:[id number] Voice Confirmation ID: [id number] DOCUMENT ID: [id number] VENKAT TEJEDA MD CC: [id number] DICTATION DATE: 05/24/17 1239 PRESS MACHINE OPERATOR: 05/24/17 1248 ADM IN [place] [place] [address]
--- NOTE | ~2017-05-23 | HEMODYNAMI ---
PATIENT:JHON RAJAN MEDICAL RECORD: [id number] : 49 LOCATION:[address] ADMISSION DATE: 05/23/17 Generatedon:05/24/201712:42 Patient name: JHON RAJAN Patient #: [id number] SSN: : 1945 Date of study: 05/24/2017 Page: Of Hemodynamic Procedure Report Patient Data Patient Demographics Procedure consent was obtained First Name: JHON Gender: Female Last Name: MOHINI : 1945 [facility] Initial: RAJI Age: 72 year(s) Patient #: [id number] Race: Additional ID: [id number] Contact details Address: [address] [place] [address] State: [place] City: [place] Zip code: [address] Past Medical History History of disease Date Diagnosis Comments CAD Allergies: No known allergies Admission Admission Data Admission Date: 05/23/2017 Admission Time: 14:54 Room #: D2120 Weight (lbs.): 225 Weight (kg.): 102.06 Lab Results Lab Result Date: 05/23/2017 Lab Result Time: 0:00 Biochemistry Name Units Result Min Max BUN mg/dl 14 --(--*-)-- 7 18 Creatinine mg/dl 0.8 --(-*--)-- 0.6 1.3 CBC Name Units Result Min Max Hemoglobin g/dl 12.7 -*(----)-- 13.5 17.5 Procedure Procedure Types Cath Procedure PCI Procedure Coronary Stent Coronary Stent Initial Procedure Description Procedure Date Procedure Date: 05/24/2017 Procedure Start Time: 12:28 Procedure End Time: 12:37 Procedure Staff Name Function Thelma Venegas RT Scrub Yovsany Morales MD Performing Physician Sanju Baker RN Nurse Ann Jimenez RT Monitor Procedure Data Cath Procedure Fluoroscopy Diagnostic fluoroscopy Total fluoroscopy Time: 1.6 time: 1.6 min min Diagnostic fluoroscopy Total fluoroscopy dose: 266 dose: 266 mGy mGy Contrast Material Contrast Material Type Amount (ml) Isovue 300 40 Entry Location Entry Primary Successful Side Size Upsize Upsize Entry Closure Succes sful Closure Location (Fr) 1 (Fr) 2 (Fr) Remarks Device Remarks Femoral Right 6 Fr Exoseal artery Short Estimated blood loss: 5 ml Procedure Complications No complications Procedure Medications Medication Administration Route Dosage 0.9% NaCl I.V. 100 ml/hr Oxygen NC 2 l/min Heparin Flush Bag added to field 2 bags (1000units/500ml NS) Lidocaine 2% added to field 20 Versed I.V. 1 mg Fentanyl I.V. 50 mcg Versed I.V. 1 mg Fentanyl I.V. 50 mcg Versed I.V. 1 mg Heparin Bolus I.V. 4000 units Hemodynamics Rest HGB: 12.7 (g/dl) Heart Rate: 90 (bpm) Snapshots Pre Cath Intra NCS Post Cath Vital Signs Time Heart Resp SPO2 etCO2 NIBP (mmHg) Rhythm Pain Sedation Rate (ipm) (%) (mmHg) Status Level (bpm) 12:11:47 85 18 94 0 179/87(151) NSR 0 (11) 10(A) , No pain 12:16:23 84 20 98 39.1 182/90(125) NSR 0 (11) 10(A) , No pain 12:21:00 91 18 96 39.8 176/91(126) NSR 0 (11) 10(A) , No pain 12:25:34 88 14 96 42.8 185/88(142) NSR 0 (11) 10(A) , No pain 12:30:11 93 19 96 43.6 191/91(133) NSR 0 (11) 10(A) , No pain 12:34:47 100 19 96 45.1 186/102(146) NSR 0 (11) 10(A) , No pain Medications Time Medication Route Dose Verified Delivered Reason Notes Effectiveness by by 12:17:23 0.9% NaCl I.V. 100 Sanju Sanju Per physician ml/hr Olivia Baker RN RN 12:17:35 Oxygen NC 2 Sanju Sanju Per physician l/min Olivia Baker RN RN 12:17:46 Heparin Flush added 2 Sanju Sanju used for Bag to bags Olivia Baker procedure (1000units/500ml field RN RN NS) 12:17:59 Lidocaine 2% added 20ml Sanju Sanju for local to vial Olivia Baker anesthetic field RN RN 12:24:42 Versed I.V. 1 mg Sanju Sanju for sedation Olivia Baker RN RN 12:24:50 Fentanyl I.V. 50 Sanju Sanju for sedation mcg Olivia Baker RN RN 12:28:47 Versed I.V. 1 mg Sanju Sanju for sedation Olivia Baker RN RN 12:28:52 Fentanyl I.V. 50 Sanju Sanju for sedation mcg Olivia Baker RN RN 12:30:32 Versed I.V. 1 mg Sanju Sanju for sedation Olivia Baker RN RN 12:32:47 Heparin Bolus I.V. 4000 Sanju Sanju for units Olviia Baker anticoagulation RN laborer vineyard Log Time Note 11:55:07 Diagnostic Cath status Elective 11:55:10 Sanju Baker RN sent for patient. Start room use. 11:55:12 Time tracking: Regular hours 11:55:31 Plan of Care:Hemodynamics will remain stable., Cardiac rhythm will remain stable., Comfort level will be maintained., Respiratory function will remain adequate., Patient/ family verbilizes understanding of procedure., Procedure tolerated without complication., Recovers from procedure without complications.. 12:01:57 Patient received from Pre/Post Procedure Room to CCL 2 Alert and oriented. Tansferred to table in Supine position. 12:01:59 Correct patient and procedure confirmed by team. 12:01:59 Warm blankets applied, and garrett hugger turned on for patient comfort. 12:02:01 Signed procedure consent form obtained from patient. 12:02:02 ECG and BP/O2 sat monitors applied to patient. 12:02:05 Full Disclosure recording started 12:06:39 H&P Date Dictated: 05/23/2017 Within 30 days and on chart.. 12:06:40 Pre-procedure instructions explained to patient. 12:08:18 Family in waiting room. 12:08:40 Patient Weight : 225 lbs 12:08:57 Patient allergic to No known allergies 12:09:00 Is the patient allergic to Iodine/contrast media? No. 12:09:02 Was the patient premedicated? Yes 12:09:04 Is patient on blood thinner?Yes 12:09:08 ACC The patient was administered the following blood thiners within the last 24 hours: ACCPlavix 12:09:10 Patient diabetic? Yes. 12:09:12 If diabetic: On Metformin? Yes 12:09:15 If on Metformin: Last Dose? 05/23/2017 12:09:20 Previous problem with sedation/anesthesia? No ? 12:09:21 Snore? Yes 12:09:24 Sleep apnea? No 12:09:27 Vital chart was started 12::28 Baseline sample Acquired. 12::31 Rhythm: sinus rhythm 12:09:44 Patient pain scale 0/10 ?. 12:10:08 IV patent on arrival in left forearm with 0.9% NaCl at [facility]. 12:10:15 Lab results completed and on chart. 12::18 Right groin area was prepped with chlora-prep and draped in sterile fashion 12:10:19 Sharps counted by scrub and verified by R.N. 12:10:19 Alarms reviewed by R. N. 12:10:21 Physician paged 12:17:23 0.9% NaCl 100 ml/hr I.V. was administered by Sanju Baker RN; Per physician; 12:17:35 Oxygen 2 l/min NC was administered by Sanju Baker RN; Per physician; 12:17:46 Heparin Flush Bag (1000units/500ml NS) 2 bags added to field was administered by Sanju Baker RN; used for procedure; 12:17:59 Lidocaine 2% 20ml vial added to field was administered by Sanju Baker RN; for local anesthetic; 12:22:30 --------ALL STOP TIME OUT------ 12:22:30 Physician arrived 12:22:31 Final Timeout: patient, procedure, and site verified with staff and physician. All members of the team are in agreement. 12:22:32 Right groin site verified by team. 12:22:49 Physical assessment completed. ASA score P 2 - A patient with mild systemic disease as per Yosvany Morales MD. 12:22:53 Sedation plan: IV Moderate Sedation Medication:Versed, Fentanyl 12:23:05 Use device set Femoral Dx 12:23:06 ACIST Syringe (54428) opened to sterile field. 12:23:07 Bag Decanter (2002S) opened to sterile field. 12:23:08 Medline Cath Pack ([id number]) opened to sterile field. 12:23:09 DIAGNOSTIC WIRE .035 260cm J wire (317991) opened to sterile field. 12:23:10 ACIST Hand Control (88586) opened to sterile field. 12:23:11 ACIST Manifold (96233) opened to sterile field. 12:23:12 Tegaderm 4 x 4 (1626W) opened to sterile field. 12:23:44 SHEATH 6FR [place] (MXM242) opened to sterile field. 12:23:45 INFLATOR Merit BasixCompak (UY1617) opened to sterile field. 12:24:31 Zero performed for pressure channel P1 12:24:42 Versed 1 mg I.V. was administered by Sanju Baker RN; for sedation; 12:24:50 Fentanyl 50 mcg I.V. was administered by Sanju Baker RN; for sedation; 12:28:47 Procedure started. 12::47 Versed 1 mg I.V. was administered by Sanju Baker RN; for sedation; 12:28:50 Local anesthetic to right femoral artery with Lidocaine 2% by Yosvany Morales MD.INITIAL ACCESS ONLY 12:28:52 Fentanyl 50 mcg I.V. was administered by Sanju Baker RN; for sedation; 12:28:58 A 6 Fr Short sheath was inserted into the Right Femoral artery 12:30:25 GUIDE 6FR XBLAD 3.5 catheter ([id number]) opened to sterile field. 12:30:32 Versed 1 mg I.V. was administered by Sanju Baker RN; for sedation; 12:30:34 6 Fr xblad 3.5 guide catheter was inserted over the wire 12:31:57 CHOICE PT Extra Support 182cm wire ([id number]) opened to sterile field. 12:32:42 choice pt wire advanced. 12:32:47 Heparin Bolus 4000 units I.V. was administered by Sanju Baker RN; for anticoagulation; 12:33:00 Inflation Number: 1 A CARMINE RX 3.5 x 08 stent ([id number]) was prepped and advanced across the Prox LAD. The stent was deployed at 13 SANTA for 0:10 (min:sec). 12:33:07 Inflation number: 2 The stent balloon was then re-inflated across the Prox LAD to 23 SANTA for 0:10 (min:sec). 12:33:18 Inflation number: 3 The stent balloon was then re-inflated across the Prox LAD to 17 SANTA for 0:10 (min:sec). 12:33:41 Stent catheter was removed intact over wire. 12:33:42 Guide catheter removed. 12:33:42 Wire removed. 12:33:51 EXOSEAL 6Fr (EX600) opened to sterile field. 12:33:58 Sheath removed intact; hemostasis achieved with Exoseal to the Right Femoral artery. 12:33:59 Procedure ended.(Physican Out) 12:34:12 Fluoroscopy time 01.60 minutes. 12:34:16 Fluoroscopy dose: 266 mGy 12:34:16 Flurop Dose total: 266 12:34:19 Contrast amount:Isovue 300 40ml. 12:34:21 Sharps counted by scrub and verified by R.N. 12:34:22 Insertion/operative site no bleeding no hematoma. 12:34:26 Post-op/insertion site Right Femoral artery dressed using a 4 x 4 and Tegaderm. 12:34:28 Post right femoral artery:stable 12:34:32 Post Procedure Pulses reassessed and unchanged 12:34:34 Post procedure rhythm: unchanged. 12:34:37 Estimated blood loss: 5 ml 12:36:30 Post procedure instruction explained to patient.Patient verbalizes understanding. 12:36:31 Patient needs reinforcement of post procedure teaching. 12:36:40 Procedure type changed to Cath procedure, PCI procedure, Coronary Stent, Coronary Stent Initial 12:37:03 Sedation time 9 mins 12:37:04 Procedure and supply charges have been captured, reviewed, submitted and are correct. 12:37:08 Procedure Complication : No complications 12:37:10 Vital chart was stopped 12:37:11 See physician's report for complete and final results. 12:37:23 Report given to Med II. 12:37:26 Patient transfered to Med II with Stretcher. 12:37:28 Full Disclosure recording stopped 12:37:28 Procedure ended. 12:37:33 ACC-PCI Only Patient was given prescriptions, or instructed by Yosvany Morales MD to start/continue the following medications upon discharge: Plavix 12:37:35 End room use (Document Last) Intervention Summary Intervention Notes Time ActionType Lesion and Equipment Used Action# Pressure Duration Attributes 12:33:00 Place stent Prox LAD CARMINE RX 3.5 x 1 13 00:10 08 stent ([id number]) 12:33:07 Reinflate Prox LAD CARMINE RX 3.5 x 2 23 00:10 stent 08 stent balloon ([id number]) 12:33:18 Reinflate Prox LAD CARMINE RX 3.5 x 3 17 00:10 stent 08 stent balloon ([id number]) Device Usage Item Name Manufacture Quantity Catalog Number Hospital Part Current M inimal Lot# / Charge Number Stock Stock Serial# Code ACIST Syringe Acist 1 78644 702406 278586 478742 2 0 (63582) Medical Systems Inc Bag Decanter Microtek 1 2001S 181944 24871 525318 5 () Medical Inc. Medline Cath Cardinal 1 [id number] 738033 01671 737829 5 Pack [employer] ([id number]) DIAGNOSTIC St Mariano 1 553260 058045 391060 610939 3 0 WIRE .035 260cm J wire (750723) ACIST Hand Acist 1 53277 137566 132786 822435 5 Control Medical (99793) Systems Inc ACIST Manifold Acist 1 50940 826276 462893 961798 5 (97492) Medical Systems Inc Tegaderm 4 x 4 3M 1 1626W 149826 728971 047769 5 (1626W) SHEATH 6FR Terumo 1 NPH340 351987 347876 666390 4 0 [place] (XHT728) INFLATOR Merit Merit 1 BN5036 775804 302050 800907 1 5 [employer] Medical (DR4716) GUIDE 6FR Cardinal 1 [id number] 171779 571435 682360 1 0 XBLAD 3.5 Health catheter ([id number]) CHOICE PT [place] 1 [id number] 335594 293846 865584 5 Extra Support Scientific 182cm wire ([id number]) CARMINE RX 3.5 x Medtronic 1 [id number] 996665 2485123 476227 5 [id number] 08 stent ([id number]) EXOSEAL 6Fr Cardinal 1 EX600 277232 370714 659144 1 0 (EX600) Health Signature Audit [place] Stage Time Signature Unsigned Intra-Procedure 05/24/2017 Ann Jimenez 12:42:21 PM RT(R) Signatures Monitor : Ann Jimenez RT Signature : Date : Time : [place] [id number] [place] [address]
[~2017-05-23 08:27] MED LIST changes: +NORVASC5 MG PO
[2017-05-23] MEDS ORDERED: LODINE400 MG PO (09:20)
[2017-05-23] MEDS ORDERED: SYNTHROID100 MCG PO (09:20)
[2017-05-23] MEDS ORDERED: LISINOPRIL-HCTZ1 T11 PO (09:21)
[2017-05-23] MEDS ORDERED: FLUTICASONE PRO16 GM NASAL (09:22)
[2017-05-23] MEDS ORDERED: ACTOS45 MG PO (09:23)
[2017-05-23] MEDS ORDERED: MECLIZINE HCL25 MG PO (09:23)
[2017-05-23] MEDS ORDERED: VALIUM5 MG PO (09:24)
[2017-05-23] MEDS ORDERED: MACROBID100 MG PO (09:25)
[2017-05-23] MEDS ORDERED: NORVASC5 MG PO (09:25)
[2017-05-23] MEDS ORDERED: TOUJEO SOL300 UNIT/1 SC (09:25)
[2017-05-23] MEDS ORDERED: PROVENTIL HFA6.7 GM INH (09:25)
[2017-05-23] MEDS ORDERED: NITROQUICK0.4 MG SL (09:26)
[2017-05-23] MEDS ORDERED: ASPIRIN325 MG PO (09:27)
[2017-05-23 09:39] VITALS: BP 166/83; BMI 37.5
[2017-05-23 09:44] LABS: BASOPHILS 0.1 % (0-2); EOSINOPHILS 5.6 % (0-7); HEMATOCRIT 40.7 % (36.0-48.0); HEMOGLOBIN 12.7 g/dL (12-16); IMMATURE GRANULOCYTES 0.2 % (0-5); LYMPHOCYTES 29.9 % (15-50); MCH 28.3 pg (26.0-34.0); MCHC 31.2 g/dL (31.0-37.0); MCV 90.8 fL (80.0-100.0); MEAN PLATELET VOLUME 10.4 fL (7.4-10.4); MONOCYTES 9.1 % (2-11); NEUTROPHILS 55.1 % (40-80); RBC 4.48 10x6/uL (4.00-5.40); RDW 14.3 % (11.5-14.5); WBC 9.5 10x3/uL (4.8-10.8)
[2017-05-23 09:53] LABS: PLATELET COUNT 333 10x3/uL (130-400)
[2017-05-23 10:04] LABS: CALC OSMOLALITY 283 mosm/kg (275-300); CALCIUM 9.3 mg/dL (8.5-10.1); CARBON DIOXIDE 30.1 mmol/L (21.0-32.0); CHLORIDE - SERUM 101 mmol/L (98-107); CREATININE - SERUM 0.8 mg/dL (0.6-1.3); POTASSIUM - SERUM 3.9 mmol/L (3.5-5.1); SODIUM 140 mmol/L (136-145); UREA NITROGEN 14 mg/dL (7-18); eGFR NON AFRICAN AMERICAN 75 mL/min (90-120)
[2017-05-23 10:07] LABS: GLUCOSE 166 mg/dL (74-106)
[2017-05-23 14:55] VITALS: Ht 165.1 cm; Wt 47.3 kg
[2017-05-23 16:46] VITALS: BP 161/69
[2017-05-23 20:00] VITALS: BP 148/78
[2017-05-24 04:00] VITALS: BP 154/77
[2017-05-24 08:06] LABS: BASOPHILS 0.1 % (0-2); EOSINOPHILS 4.7 % (0-7); HEMATOCRIT 36.7 % (36.0-48.0); HEMOGLOBIN 11.4 g/dL (12-16); IMMATURE GRANULOCYTES 0.2 % (0-5); LYMPHOCYTES 26.5 % (15-50); MCH 28.2 pg (26.0-34.0); MCHC 31.1 g/dL (31.0-37.0); MCV 90.8 fL (80.0-100.0); MEAN PLATELET VOLUME 10.2 fL (7.4-10.4); MONOCYTES 9.6 % (2-11); NEUTROPHILS 58.9 % (40-80); PLATELET COUNT 290 10x3/uL (130-400); RBC 4.04 10x6/uL (4.00-5.40); RDW 14.7 % (11.5-14.5); WBC 10.5 10x3/uL (4.8-10.8)
[2017-05-24 08:20] LABS: CALC OSMOLALITY 278 mosm/kg (275-300); CALCIUM 8.6 mg/dL (8.5-10.1); CARBON DIOXIDE 26.9 mmol/L (21.0-32.0); CHLORIDE - SERUM 103 mmol/L (98-107); CREATININE - SERUM 0.6 mg/dL (0.6-1.3); GLUCOSE 177 mg/dL (74-106); SODIUM 138 mmol/L (136-145); eGFR NON AFRICAN AMERICAN > 90 mL/min (90-120)
[2017-05-24 08:21] LABS: UREA NITROGEN 10 mg/dL (7-18)
[2017-05-24 10:41] VITALS: BP 177/82
[2017-05-24 13:28] VITALS: BP 155/79
== END 2017-05-24 16:34 | disposition home or self-care (01) ==
LOC: D.CATH 08:27 → D.M2 14:43 → D.CATH 14:54 → D.M2 14:54 → OBSVTIME 14:55 → D.M2 05-24 15:26 → D.SDCHOLD 05-24 15:26 → D.M2 05-24 16:34
PROVIDERS: Internal Medicine Interventional Cardiology
DX: I25.119 Atherosclerotic heart disease of native coronary artery with unspecified angina pectoris (principal)
CPT/HCPCS: 93458; 92978; C9600 ×2

== ENCOUNTER 2017-11-07 13:33 | Inpatient (IN) | payer MEDICARE, BC ==
[~2017-11-07] VITALS: Ht 165.1 cm; Wt 100.0 kg
--- NOTE | ~2017-11-07 | MORECARE ---
CASE MANAGEMENT DISCHARGE SUMMARY PATIENT: JHON RAJAN UNIT: [id number] ADM DATE: 11/07/17 AGE: 72 : [birth year] SEX: F ROOM/BED: D.[facility]4 AUTHOR: CASE, SAMPLER PICKUP PHYSICIAN: REFERRING PHYSICIAN: NAIN PEDRO MD DATE OF SERVICE: 11/07/17 Discharge Plan Patient Name: [facility]ON [facility]JAN [facility] [facility] 1945 Planned Disposition: Home Anticipated Discharge Date: 11/08/17 Discharge Date: 11/08/2017 Expected LOS: 1 Initial Reviewer: [email or web address] Initial Review Date: 11/09/2017 Generated: 11/09/17 10:31 am Patient Name: JHON RAJAN Page [id number] All edits/amendments must be made on the electronic document DICTATION DATE: 11/09/17929 IN CLASSROOM TUTOR: 11/09/17929 RPT#: [id number] DC DATE:11/08/17 STATUS: DIS IN [facility] [address] [place] [address] END OF REPORT
[~2017-11-07 13:33] MED LIST changes: +ACTOS45 MG PO; +FLUTICASONE PRO16 GM NASAL; +LISINOPRIL-HCTZ1 T11 PO; +LODINE400 MG PO; +MECLIZINE HCL25 MG PO; +NITROQUICK0.4 MG SL; +PROVENTIL HFA6.7 GM INH; +SYNTHROID100 MCG PO; +TOUJEO SOL300 UNIT/1 SC; +VALIUM5 MG PO
[2017-11-07 14:25] LABS: BASOPHILS 0.1 % (0-2); EOSINOPHILS 1.9 % (0-7); HEMATOCRIT 36.8 % (36.0-48.0); HEMOGLOBIN 11.6 g/dL (12-16); IMMATURE GRANULOCYTES 0.2 % (0-5); LYMPHOCYTES 24.5 % (15-50); MCH 27.8 pg (26.0-34.0); MCHC 31.5 g/dL (31.0-37.0); MEAN PLATELET VOLUME 10.4 fL (7.4-10.4); MONOCYTES 9.2 % (2-11); NEUTROPHILS 64.1 % (40-80); PLATELET COUNT 330 10x3/uL (130-400); RBC 4.18 10x6/uL (4.00-5.40); RDW 16.3 % (11.5-14.5); WBC 12.7 10x3/uL (4.8-10.8)
[2017-11-07 14:50] LABS: ALBUMIN 3.2 g/dL (3.4-5.0); ALKALINE PHOSPHATASE 49 U/L (46-116); ALT (SGPT) 24 U/L (10-68); BILIRUBIN - TOTAL 0.18 mg/dL (0.2-1.3); CALC OSMOLALITY 281 mosm/kg (275-300); CALCIUM 9.1 mg/dL (8.5-10.1); CARBON DIOXIDE 32.6 mmol/L (21.0-32.0); CHLORIDE - SERUM 102 mmol/L (98-107); CREATININE - SERUM 0.6 mg/dL (0.6-1.3); GLUCOSE 171 mg/dL (74-106); POTASSIUM - SERUM 4.1 mmol/L (3.5-5.1); PROTEIN - SERUM 7.2 g/dL (6.4-8.2); SODIUM 139 mmol/L (136-145); UREA NITROGEN 13 mg/dL (7-18); eGFR NON AFRICAN AMERICAN > 90 mL/min (90-120)
[2017-11-07 15:00] LABS: AMYLASE - SERUM 20 U/L (25-115); CKMB 0.9 U/L (0.0-3.6); CREATINE KINASE 58 UL (21-215); LIPASE 91 U/L (73-393)
[2017-11-07 15:02] LABS: TROPONIN-I < 0.017 ng/mL (0.000-0.060)
[2017-11-07 18:03] LABS: CKMB 1.1 U/L (0.0-3.6); CREATINE KINASE 61 UL (21-215); TROPONIN-I < 0.017 ng/mL (0.000-0.060)
[2017-11-07 19:39] VITALS: BP 169/74
[2017-11-07] MEDS ORDERED: CARAFATE1 G PO (21:15)
[2017-11-07 21:22] VITALS: BP 153/58
[2017-11-07 23:59] LABS: CKMB 1.4 U/L (0.0-3.6); CREATINE KINASE 83 UL (21-215); TROPONIN-I < 0.017 ng/mL (0.000-0.060)
[2017-11-08] VITALS: BP 148/66
[2017-11-08 04:00] VITALS: BP 138/55
[2017-11-08 04:48] VITALS: BP 148/66; BMI 36.6
[2017-11-08 05:21] LABS: CKMB 0.9 U/L (0.0-3.6); CREATINE KINASE 50 UL (21-215); TROPONIN-I < 0.017 ng/mL (0.000-0.060)
[2017-11-08 07:57] VITALS: BP 146/60
[2017-11-08 08:44] VITALS: Ht 165.1 cm; Wt 100.0 kg
[2017-11-08 14:47] LABS: APPEARANCE CLEAR (CLEAR); BILIRUBIN NEGATIVE (NEGATIVE); COLOR DK YELLOW (YELLOW); GLUCOSE 500 mg/dL (NEGATIVE); KETONE NEGATIVE (NEGATIVE); NITRITE NEGATIVE (NEGATIVE); PROTEIN NEGATIVE (NEGATIVE); SPECIFIC GRAVITY 1.025 (1.005-1.020); UROBILINOGEN NORMAL (NORMAL)
[2017-11-08 14:56] LABS: BACTERIA FEW /hpf (NONE SEEN); EPITHELIAL CELLS 0-5 /hpf (0-5); MUCUS >1+ /lpf (NONE SEEN); RED CELLS - URINE RARE /hpf (0-5); WHITE CELLS - URINE 0-5 /hpf (0-5)
[2017-11-08] MEDS ORDERED: LEVAQUIN500 MG PO (15:16)
[2017-11-08] MEDS ORDERED: FLAGYL500 MG PO (15:17)
[2017-11-08 16:12] VITALS: BP 132/69
== END 2017-11-08 17:16 | disposition home or self-care (01) | DRG 392 ==
LOC: D.ER 13:33 → D.M2 17:22 → D.EDHOLD 17:22 → D.M2 19:13
PROVIDERS: Family Medicine; Internal Medicine Nephrology
DX: K57.92 Diverticulitis of intestine, part unspecified, without perforation or abscess without bleeding (principal); R07.89 Other chest pain; I10 Essential (primary) hypertension; E78.5 Hyperlipidemia, unspecified; I25.10 Atherosclerotic heart disease of native coronary artery without angina pectoris; Z95.5 Presence of coronary angioplasty implant and graft; E11.42 Type 2 diabetes mellitus with diabetic polyneuropathy; K21.9 Gastro-esophageal reflux disease without esophagitis

== ENCOUNTER → 2018-02-09 19:03 | Outpatient (CLI) | payer MEDICARE, BC ==
[2017-11-08 08:44] VITALS: BMI 36.6
[~2018-02-09 19:03] MED LIST changes: +CARAFATE1 G PO; +FLAGYL500 MG PO; +FLORAJEN3 CAPS460 MG PO; +LEVAQUIN500 MG PO; +LEVOFLOXACIN500 MG PO
== END | disposition home or self-care (01) ==
LOC: D.US 17:30
DX: M79.604 Pain in right leg (principal)

== ENCOUNTER 2018-03-08 17:54 | Inpatient (IN) | payer MEDICARE, BC ==
[~2018-03-08] VITALS: Ht 165.1 cm; Wt 100.0 kg
--- NOTE | ~2018-03-08 | MORECARE ---
CASE MANAGEMENT DISCHARGE SUMMARY PATIENT: JHON RAJAN UNIT: [id number] ADM DATE: 03/08/18 AGE: 73 : 47 SEX: F ROOM/BED: D.[facility] AUTHOR: MINOO SCHUMACHER PHYSICIAN: REFERRING PHYSICIAN: MACK SAN MD DATE OF SERVICE: 03/10/18 Discharge Plan Patient Name: JHON RAJAN [facility] [facility] 1945 Planned Disposition: Home Anticipated Discharge Date: 03/10/18 Discharge Date: Expected LOS: 2 Initial Reviewer: [email or web address] Initial Review Date: 03/10/2018 Generated: 03/10/18 1:35 pm DCPIA - Discharge Planning Initial Assessment Updated by [email or web address]: Teri Casey on 03/10/18 12:34 pm * Is the patient Alert and Oriented? Yes * How many steps to enter\exit or inside your home? 0/1 INSIDE * PCP MARILYN * [facility] * Preadmission Environment Home with Family * ADLs Partial Dependent * Partial ADLs (Assistance needed) Ambulation * Equipment Cane Walker * List name and contact numbers for known caregivers / representatives who currently or will assist patient after discharge: ARNAUD, , * Community resources currently utilized None * Additional services required to return to the preadmission environment? No * Can the patient safely return to the preadmission environment? Yes * Has this patient been hospitalized within the prior 30 days at any hospital? No Patient Name: JHON RAJAN Page 91567 at 1235 All edits/amendments must be made on the electronic document DICTATION DATE: 03/10/18 1235 DELIMER: EUNICE 03/10/18 1235 RPT#: [id number] DC DATE: STATUS: ADM IN [facility] [address] [place] [address] END OF REPORT
--- NOTE | ~2018-03-08 | HP ---
PATIENT: JHON ROSEN MEDICAL RECORD: [id number] ACCOUNT: [id number] LOCATION:[id number] : [birth year] ADMISSION DATE: 03/08/18 PCP: YOANA SANDERS DO HISTORY AND PHYSICAL EXAMINATION HISTORY OF PRESENT ILLNESS: Ms. Rosen is a 73-year-old white female that is seen in the clinic by nurse practitioner, Bisi Martin, with abdominal pain. She had a recent fall and is on Plavix. She was sent to the Emergency Room for further evaluation, but declined to go because of the wait. She was subsequently sent to outpatient where a CT was performed, which revealed acute diverticulitis. She has a history of diverticulitis in the past. She is being admitted for IV antibiotics and further evaluation. PAST MEDICAL HISTORY: Significant for previous diverticular disease, diabetic neuropathy, type 2 diabetes, coronary artery disease, hyperlipidemia, hypertension, obesity, hypothyroidism, vitamin D deficiency, GERD, B12 deficiency. Sge has a history of DVT. PAST SURGICAL HISTORY: Includes multiple stents, colonoscopy and endoscopy. ALLERGIES OR INTOLERANCES: INCLUDE ETODOLAC, METHOCARBAMOL. CURRENT MEDICATIONS: Include amlodipine 5 mg a day, clopidogrel 75 mg a day, metformin 1000 b.i.d., levothyroxine 100 mcg a day, Lyrica 50 mcg t.i.d., magnesium oxide, Debrox eardrops, nitrofurantoin 1 p.o. q. daily for UTI prevention, which was started by urology years ago, lisinopril/HCTZ 20/12.5 one p.o. daily, venlafaxine 75 b.i.d., pioglitazone 45 mg a day, pantoprazole 40 mg a day, pravastatin 40 mg a day, Trulicity 1.5 mg weekly, Flonase nasal spray, Toujeo 25 units daily, 325 aspirin, p.r.n. nitroglycerin, and metoprolol 50 mg b.i.d. FAMILY HISTORY: Significant for diabetes and coronary artery disease. SOCIAL HISTORY: The patient is . She does not smoke or drink. REVIEW OF SYSTEMS: She has not had any fever. No obvious rectal bleeding. No dysuria. No chest pain, no shortness of breath. She does have abdominal pain and bloating and some loose stools. PHYSICAL EXAMINATION: GENERAL: She currently is in no acute distress. HEENT: Head is normocephalic, sclerae nonicteric. HEART: Regular. LUNGS: Clear. ABDOMEN: With some generalized tenderness, more pronounced in the lower quadrants, more on the left than the right. EXTREMITIES: Lower extremities revealed no obvious DVT or edema. NEUROLOGIC: Without any gross focal deficits. IMPRESSION: Acute diverticulitis with multiple comorbidities. PLAN: Admit, IV antibiotics, bowel rest for now, IV fluids, sliding scale. At this point, I did not feel surgical or GI consult is needed unless she fails to improve. HISTORY AND PHYSICAL [id number] JHON ROSEN TRANSINT:[id number] Voice Confirmation ID: [id number] DOCUMENT ID: [id number] YOANA SANDERS DO CC: [id number] DICTATION DATE: 03/09/181815 REFRIGERATION REPAIR SUPERVISOR: 03/09/182238 ADM IN [facility] [address] [place] [address]
--- NOTE | ~2018-03-08 | MORECARE ---
CASE MANAGEMENT DISCHARGE SUMMARY PATIENT: JHON RAJAN UNIT: [id number] ADM DATE: 03/08/18 AGE: 73 : [birth year] SEX: F ROOM/BED: D.2238 AUTHOR: ENDY,DOC PHYSICIAN: REFERRING PHYSICIAN: MACK SAN MD DATE OF SERVICE: 03/13/18 Discharge Plan Patient Name: JHON RAJAN Facility: [facility]:[place] : 1945 Planned Disposition: Home Anticipated Discharge Date: 03/10/18 Discharge Date: 03/10/2018 Expected LOS: 2 Initial Reviewer: [email or web address] Initial Review Date: 03/10/2018 Generated: 03/13/18 10:50 am Comments DCP- Discharge Planning Updated by [email or web address]: Teri Casey on 03/10/18 11:[address] Patient Name: JHON RAJAN Admission Status: ER Accout number: [id number] Admission Date: 03-08-2018 : 1945 Admission Diagnosis:DVRTCLOS OF INTEST, PART UNSP, W/O PERF OR ABSCESS W/O Attending: MACK SAN Current LOS: 2 Anticipated DC Date: 03-10-2018 Planned Disposition: Home Primary Insurance: MEDICARE A & B Discharge Planning Comments: CM met with patient about dc planning/needs. Plans to discharge to home today with . No needs identified. CM will follow and assist as needed with dc planning/needs. It Service Manager: Teri Casey DCPIA - Discharge Planning Initial Assessment Updated by [email or web address]: Teri Casey on 03/10/18 12:34 pm * Is the patient Alert and Oriented? Yes * How many steps to enter\exit or inside your home? 0/1 INSIDE * PCP MARILYN * [facility] * Preadmission Environment Home with Family * ADLs Partial Dependent * Partial ADLs (Assistance needed) Ambulation * Equipment Cane Walker * List name and contact numbers for known caregivers / representatives who currently or will assist patient after discharge: ARNAUD, , * Community resources currently utilized None * Additional services required to return to the preadmission environment? No * Can the patient safely return to the preadmission environment? Yes * Has this patient been hospitalized within the prior 30 days at any hospital? No Last DP export: 03/10/18 11:41 a Patient Name: HJON RAJAN Page 15086 at 0950 All edits/amendments must be made on the electronic document DICTATION DATE: 03/13/18948 SUCTION PLATE CARRIER CLEANER: EUNICE 03/13/18948 RPT#: [id number] DC DATE:03/10/18 STATUS: DIS IN [facility] [address] [place] [address] END OF REPORT
--- NOTE | ~2018-03-08 | MORECARE ---
CASE MANAGEMENT DISCHARGE SUMMARY PATIENT: JHON RAJAN UNIT: [id number] ADM DATE: 03/08/18 AGE: 73 : [birth year] SEX: F ROOM/BED: D.2238 AUTHOR: ENDY,DOC PHYSICIAN: REFERRING PHYSICIAN: MACK SAN MD DATE OF SERVICE: 03/10/18 Discharge Plan Patient Name: JHON RAJAN Facility: [facility]:[place] : 1945 Planned Disposition: Home Anticipated Discharge Date: 03/10/18 Discharge Date: Expected LOS: 2 Initial Reviewer: [email or web address] Initial Review Date: 03/10/2018 Generated: 03/10/18 1:41 pm Comments DCP- Discharge Planning Updated by [email or web address]: Teri Casey on 03/10/18 11:[address] Patient Name: JHON RAJAN Admission Status: ER Accout number: [id number] Admission Date: 03-08-2018 : 1945 Admission Diagnosis:DVRTCLOS OF INTEST, PART UNSP, W/O PERF OR ABSCESS W/O Attending: MACK SAN Current LOS: 2 Anticipated DC Date: 03-10-2018 Planned Disposition: Home Primary Insurance: MEDICARE A & B Discharge Planning Comments: CM met with patient about dc planning/needs. Plans to discharge to home today with . No needs identified. CM will follow and assist as needed with dc planning/needs. Chain Splitter: Teri Casey DCPIA - Discharge Planning Initial Assessment Updated by [email or web address]: Teri Casey on 03/10/18 12:34 pm * Is the patient Alert and Oriented? Yes * How many steps to enter\exit or inside your home? 0/1 INSIDE * PCP MARILYN * [facility] * Preadmission Environment Home with Family * ADLs Partial Dependent * Partial ADLs (Assistance needed) Ambulation * Equipment Cane Walker * List name and contact numbers for known caregivers / representatives who currently or will assist patient after discharge: ARNAUD, , * Community resources currently utilized None * Additional services required to return to the preadmission environment? No * Can the patient safely return to the preadmission environment? Yes * Has this patient been hospitalized within the prior 30 days at any hospital? No Last DP export: 03/10/18 11:35 a Patient Name: JHON RAJAN Page 22360 at 1242 All edits/amendments must be made on the electronic document DICTATION DATE: 03/10/18 124 FLATWORK IRONER: EUNICE 03/10/18 1241 RPT#: [id number] DC DATE: STATUS: ADM IN [facility] [address] [place] [address] END OF REPORT
[~2018-03-08 17:54] MED LIST changes: -FLORAJEN3 CAPS460 MG PO; -LEVOFLOXACIN500 MG PO
[2018-03-08 19:55] LABS: BASOPHILS 0.1 % (0-2); EOSINOPHILS 2.1 % (0-7); HEMOGLOBIN 11.2 g/dL (12-16); IMMATURE GRANULOCYTES 0.1 % (0-5); LYMPHOCYTES 35.9 % (15-50); MCH 26.7 pg (26.0-34.0); MCHC 31.1 g/dL (31.0-37.0); MCV 85.9 fL (80.0-100.0); MEAN PLATELET VOLUME 10.5 fL (7.4-10.4); NEUTROPHILS 51.8 % (40-80); PLATELET COUNT 321 10x3/uL (130-400); RBC 4.19 10x6/uL (4.00-5.40); RDW 16.3 % (11.5-14.5); WBC 9.3 10x3/uL (4.8-10.8)
[2018-03-08 20:02] LABS: CALC OSMOLALITY 285 mosm/kg (275-300); CALCIUM 8.8 mg/dL (8.5-10.1); CARBON DIOXIDE 31.8 mmol/L (21.0-32.0); CHLORIDE - SERUM 98 mmol/L (98-107); CREATININE - SERUM 0.6 mg/dL (0.6-1.3); GLUCOSE 208 mg/dL (74-106); POTASSIUM - SERUM 3.8 mmol/L (3.5-5.1); SODIUM 140 mmol/L (136-145); UREA NITROGEN 15 mg/dL (7-18); eGFR NON AFRICAN AMERICAN > 90 mL/min (90-120)
[2018-03-08 23:04] LABS: HEMATOCRIT 32.9 % (36.0-48.0); HEMOGLOBIN 10.4 g/dL (12-16)
[2018-03-09 03:28] VITALS: BP 165/69; Ht 165.1 cm; Wt 100.0 kg
[2018-03-09 05:48] VITALS: BP 157/66
[2018-03-09 06:43] LABS: HEMATOCRIT 36.3 % (36.0-48.0); HEMOGLOBIN 11.2 g/dL (12-16)
[2018-03-09 06:53] LABS: CALC OSMOLALITY 286 mosm/kg (275-300); CALCIUM 8.8 mg/dL (8.5-10.1); CARBON DIOXIDE 32.4 mmol/L (21.0-32.0); CHLORIDE - SERUM 102 mmol/L (98-107); CREATININE - SERUM 0.6 mg/dL (0.6-1.3); GLUCOSE 180 mg/dL (74-106); POTASSIUM - SERUM 3.7 mmol/L (3.5-5.1); SODIUM 142 mmol/L (136-145); eGFR NON AFRICAN AMERICAN > 90 mL/min (90-120)
[2018-03-09 06:54] LABS: UREA NITROGEN 9 mg/dL (7-18)
[2018-03-09 08:17] VITALS: BP 155/72
[2018-03-09] MEDS ORDERED: MACROBID100 MG PO (10:54)
[2018-03-09] MEDS ORDERED: NORVASC5 MG PO (10:55)
[2018-03-09 12:01] LABS: HEMATOCRIT 34.6 % (36.0-48.0); HEMOGLOBIN 10.6 g/dL (12-16)
[2018-03-09 12:17] VITALS: BP 124/59
[2018-03-09 17:20] LABS: HEMATOCRIT 35.4 % (36.0-48.0); HEMOGLOBIN 11.1 g/dL (12-16)
[2018-03-09 20:20] VITALS: BP 169/68
[2018-03-09 23:40] LABS: HEMATOCRIT 33.7 % (36.0-48.0); HEMOGLOBIN 10.4 g/dL (12-16)
[2018-03-10 01:15] VITALS: BP 154/64
[2018-03-10 06:35] LABS: HEMATOCRIT 34.6 % (36.0-48.0); HEMOGLOBIN 10.6 g/dL (12-16)
[2018-03-10 07:00] LABS: CALC OSMOLALITY 285 mosm/kg (275-300); CALCIUM 8.1 mg/dL (8.5-10.1); CARBON DIOXIDE 27.9 mmol/L (21.0-32.0); CHLORIDE - SERUM 104 mmol/L (98-107); CREATININE - SERUM 0.5 mg/dL (0.6-1.3); POTASSIUM - SERUM 3.8 mmol/L (3.5-5.1); SODIUM 140 mmol/L (136-145); UREA NITROGEN 11 mg/dL (7-18); eGFR NON AFRICAN AMERICAN > 90 mL/min (90-120)
[2018-03-10 07:01] LABS: GLUCOSE 242 mg/dL (74-106)
[2018-03-10 09:05] VITALS: BP 187/76
[2018-03-10 11:25] LABS: HEMATOCRIT 33.4 % (36.0-48.0); HEMOGLOBIN 10.4 g/dL (12-16)
[2018-03-10] MEDS ORDERED: FLORAJEN3 CAPS460 MG PO (11:51)
[2018-03-10] MEDS ORDERED: FLAGYL500 MG PO (11:52)
[2018-03-10] MEDS ORDERED: LEVOFLOXACIN500 MG PO (11:52)
[2018-03-10 13:33] VITALS: BP 137/60
== END 2018-03-10 15:15 | disposition home or self-care (01) | DRG 392 ==
LOC: D.RAD 17:54 → D.ER 17:54 → EDSTATUS 19:11 → D.MS 22:16
PROVIDERS: Family Medicine
DX: K57.32 Diverticulitis of large intestine without perforation or abscess without bleeding (principal); I10 Essential (primary) hypertension; I25.10 Atherosclerotic heart disease of native coronary artery without angina pectoris; E11.40 Type 2 diabetes mellitus with diabetic neuropathy, unspecified; E78.5 Hyperlipidemia, unspecified; K21.9 Gastro-esophageal reflux disease without esophagitis; E66.9 Obesity, unspecified; Z68.36 Body mass index [BMI] 36.0-36.9, adult

== ENCOUNTER → 2018-05-18 13:41 | Outpatient (CLI) | payer MEDICARE, BC ==
[2018-03-09 03:28] VITALS: BMI 36.6
[~2018-05-18 13:41] MED LIST changes: +FLORAJEN3 CAPS460 MG PO; +LEVOFLOXACIN500 MG PO
== END | disposition home or self-care (01) ==
LOC: D.MRI 13:41
DX: S83.231A Complex tear of medial meniscus, current injury, right knee, initial encounter (principal); X58.XXXA Exposure to other specified factors, initial encounter

== ENCOUNTER 2018-06-14 09:04 | Day surgery (SDC) | payer MEDICARE, BC ==
[2018-06-13 10:18] LABS: HEMATOCRIT 36.1 % (36.0-48.0); HEMOGLOBIN 11.1 g/dL (12-16); MCH 26.2 pg (26.0-34.0); MCHC 30.7 g/dL (31.0-37.0); MCV 85.1 fL (80.0-100.0); MEAN PLATELET VOLUME 10.1 fL (7.4-10.4); RBC 4.24 10x6/uL (4.00-5.40); RDW 16.8 % (11.5-14.5); WBC 10.8 10x3/uL (4.8-10.8)
[2018-06-13 10:32] LABS: CALC OSMOLALITY 285 mosm/kg (275-300); CALCIUM 8.7 mg/dL (8.5-10.1); CARBON DIOXIDE 29.3 mmol/L (21.0-32.0); CHLORIDE - SERUM 104 mmol/L (98-107); CREATININE - SERUM 0.7 mg/dL (0.6-1.3); POTASSIUM - SERUM 4.1 mmol/L (3.5-5.1); SODIUM 141 mmol/L (136-145); UREA NITROGEN 16 mg/dL (7-18); eGFR NON AFRICAN AMERICAN 87 mL/min (90-120)
[2018-06-13 10:34] LABS: GLUCOSE 167 mg/dL (74-106)
[~2018-06-14] VITALS: Ht 165.1 cm; Wt 102.1 kg
[2018-06-14 08:37] VITALS: BP 135/61; Ht 165.1 cm; Wt 102.1 kg
[2018-06-14 08:53] LABS: CALC OSMOLALITY 289 mosm/kg (275-300); CHLORIDE - SERUM 105 mmol/L (98-107); CREATININE - SERUM 0.6 mg/dL (0.6-1.3); GLUCOSE 183 mg/dL (74-106); POTASSIUM - SERUM 4.1 mmol/L (3.5-5.1); SODIUM 143 mmol/L (136-145); UREA NITROGEN 12 mg/dL (7-18); eGFR NON AFRICAN AMERICAN > 90 mL/min (90-120)
[~2018-06-14 09:04] MED LIST changes: +PROTONIX FOR OR40 MG PT
[2018-06-14] MEDS ORDERED: HYDROCODON-ACE1 EA10 PO (11:44)
--- NOTE | 2018-06-14 13:38 | OP ---
PATIENT NAME: JHON RAJAN MEDICAL RECORD: [id number] :49 LOCATION:D.OPS ADMISSION DATE: SURGEON: YEHUDA MONTES DE OCA MD DATE OF OPERATION: 06/14/2018 PREOPERATIVE DIAGNOSIS: Lateral meniscus tear of the right knee. 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 PROCEDURES: 1. Arthroscopic partial lateral meniscectomy of the right knee. 2. Arthroscopic loose body removal of the right knee. SURGEON: Yehuda Montes De Oca MD ANESTHESIA: General. INTRAOPERATIVE COMPLICATIONS: None. SUMMARY OF PATHOLOGIC FINDINGS: The patient had a very complex macerated tear of the lateral meniscus along with an approximately 6 x 6 mm loose body that was found. Unfortunately, the lateral meniscus tear had caused substantial amount of chondral damage to the lateral compartment including the distal femur and the proximal tibia. This was photographed intraoperatively arthroscopically. OPERATIVE SUMMARY IN DETAIL: After obtaining the appropriate preoperative orthopedic surgery consent as well as anesthetic consultation, evaluation and clearance, the patient was brought to the operating room and placed on the operating room table in supine position. After adequate general laryngeal mask airway was administered, tourniquet was placed about the proximal aspect of the right lower extremity. Right lower extremity was then prepped and draped in routine sterile fashion. The leg was elevated and exsanguinated, the tourniquet was inflated to 350 mmHg. Routine inferolateral portal was established followed by superomedial portal and inferomedial portal. Diagnostic arthroscopy showed the medial compartment was relatively pristine. Attention was turned to the lateral compartment and the findings as noted above were seen. A combination of arthroscopic resector as well as an arthroscopic meniscotome to do essentially a subtotal lateral meniscectomy. The only lateral meniscus that salvageable was from the popliteal hiatus medially. The areas of chondromalacia were noted and at this point, the loose body was seen into the field of view. This was removed using an arthroscopic grasper. Having completed this, the knee was insufflated with 30 cc of 0.25% Marcaine with epinephrine and 80 mg of Depo-Medrol. Arthroscopy portals were closed in routine interrupted fashion using 4-0 Prolene. Sterile dressings were applied. Tourniquet was deflated. The patient was awakened and taken to the recovery room in stable condition. All final needle and sponge counts were correct. TRANSINT:[id number] Voice Confirmation ID: [id number] DOCUMENT ID: [id number] OPERATIVE REPORT [id number] JHON RAJAN MD, YEHUDA GIRON at 1338 CC: [id number] DICTATION DATE: 06/14/18 1148 SHORT RANGE AIR [employer] ARTILLERY: 06/14/18 1302 REG [place] [id number] [place] [id number]
--- NOTE | 2018-06-14 14:30 | NUR ---
1330 IV DC'D. NO BLEEDING AT SITE. BANDAID APPLIED 1340 PT TAKEN TO BATHROOM IN WC TO VOID. DID NOT BEAR WEIGHT ON RIGHT FOOT. 1350 PT DRESSING WITH HELP OF HER DAUGHTER. ANXIOUS TO BE DISCHARGED TO GET HOME TO HANDLE FAMILY MATTERS.
== END 2018-06-14 14:06 | disposition home or self-care (01) ==
LOC: D.OPS 09:04 → D.PAN 12:25 → D.OPS 14:00 → D.PAN 14:00 → D.OPS 14:06
PROVIDERS: Anesthesiology; ATTEND Orthopaedic Surgery
DX: S83.271A Complex tear of lateral meniscus, current injury, right knee, initial encounter (principal); M94.261 Chondromalacia, right knee; M23.41 Loose body in knee, right knee; Z01.812 Encounter for preprocedural laboratory examination

== ENCOUNTER 2018-08-20 13:20 | Observation (INO) | payer MEDICARE, BC ==
--- NOTE | ~2018-08-20 | HEMODYNAMI ---
PATIENT:JHON RAJAN MEDICAL RECORD: [id number] : 49 LOCATION:[address] ADMISSION DATE: 08/20/18 Generatedon:08/21/201810:17 Patient name: JHON RAJAN Patient #: [id number] SSN: : 1945 Date of study: 08/21/2018 Page: Of Hemodynamic Procedure Report Patient Data Patient Demographics Procedure consent was obtained First Name: JHON Gender: Female Last Name: MOHINI : 1945 [facility] Initial: RAJI Age: 73 year(s) Patient #: [id number] Race: Additional ID: [id number] Contact details [address]: [address] [place] [address] State: [place] City: [place] Zip code: [address] Past Medical History History of disease Date Diagnosis Comments CAD Allergies: No known allergies Admission Admission Data Admission Date: 08/20/2018 Admission Time: 13:20 Room #: 2125 Height (in.): 64.96 BSA: 2.15 (m2) Height (cm.): 165 BMI: 40.4 (kg/m2) Weight (lbs.): 242.51 Weight (kg.): 110 Lab Results Lab Result Date: 08/21/2018 Lab Result Time: 0:00 Biochemistry Name Units Result Min Max BUN mg/dl 15 --(--*-)-- 7 18 Creatinine mg/dl 0.7 --(*---)-- 0.6 1.3 CBC Name Units Result Min Max Hematocrit % 34.2 *-(----)-- 42 54 Hemoglobin g/dl 10.5 *-(----)-- 13.5 17.5 Procedure Procedure Types Cath Procedure Diagnostic Procedure [facility] w/Coronaries Sedation Charges Moderate Sedation up to 15 minutes PCI Procedure PTCA PTCA Initial Procedure Description Procedure Date Procedure Date: 08/21/2018 Procedure Start Time: 9:52 Procedure End Time: 10:17 Procedure Staff Name Function Ra North MD Performing Physician Kiersten Flores RT Monitor Blas Richard RT Scrub Clara Andrews RN Nurse Procedure Data Cath Procedure Fluoroscopy Diagnostic fluoroscopy Total fluoroscopy Time: 8.5 time: 8.5 min min Diagnostic fluoroscopy Total fluoroscopy dose: dose: 1276 mGy 1276 mGy Contrast Material Contrast Material Type Amount (ml) Isovue 300 117 Entry Location Entry Primary Successful Side Size Upsize Upsize Entry Closure [place] ccessful Closure Location (Fr) 1 (Fr) 2 (Fr) Remarks Device Remarks Radial Right 6 Fr Mechanical artery Short Compression Estimated blood loss: 10 ml Diagnostic catheters Device Type Used For End Catheter Placement DIAGNOSTIC [place] 110cm 5 Procedure Fr catheter ([id number]) Procedure Complications No complications Procedure Medications Medication Administration Route Dosage 0.9% NaCl I.V. 100 ml/hr Oxygen etCO2 Nasal cannula 2 l/min Lidocaine 2% added to field 20 Heparin Flush Bag added to field 2 bags (1000units/500ml NS) Radial Cocktail added to field 1 syringe (Verapamil 2mg/Nitro 400mcg/Heparin 1500units) Versed I.V. 2 mg Fentanyl I.V. 50 mcg Fentanyl I.V. 50 mcg Heparin Bolus I.V. 5000 units Plavix P.O. 300 mg Versed I.V. 2 mg Hemodynamics Rest BSA: 2.15 (m2) O2 Consumption: Estimated: 198.62 (ml/min) O2 Consumption indexed : Estimated:92.38 (ml/min/m) Heart Rate: 71 (bpm) Pressure Samples Time Site Value (mmHg) Purpose Heart Use Rate(bpm) 9:55 LV 173/5,8 EDP 101 Gradients Valve Time Site Site Mean SEP/DFP Peak To Heart Use 1 2 (mmHg) (sec/min) Peak Rate (mmHg) (bpm) Aortic 9:55 LV AO 101 Snapshots Pre Cath Intra NCS Post Cath Vital Signs Time Heart Resp SPO2 etCO2 NIBP (mmHg) Rhythm Pain Sedation Rate (ipm) (%) (mmHg) Status Level (bpm) 9:41:42 71 12 97 31.5 179/92(159) NSR 0 (11) 10(A) , No pain 9:46:27 69 14 99 37.5 187/86(148) NSR 0 (11) 10(A) , No pain 9:51:02 91 12 97 24.7 164/84(128) NSR 0 (11) 10(A) , No pain 9:55:32 98 12 98 38.2 153/96(125) NSR 0 (11) 10(A) , No pain 10:00:02 97 12 97 37.5 172/90(142) NSR 0 (11) 10(A) , No pain 10:04:41 100 19 97 39.7 177/88(133) NSR 0 (11) 10(A) , No pain 10:09:22 90 10 97 24.7 163/90(126) NSR 0 (11) 9(A) , No pain 10:13:54 100 21 98 20.9 181/99(138) NSR 0 (11) 10(A) , No pain Medications Time Medication Route Dose Verified Delivered Reason Not es Effectiveness by by 9:44:22 0.9% NaCl I.V. 100 Ra Clara used for ml/hr [place] Darryl procedure MD DEY 9:44:29 Oxygen etCO2 2 l/min Ra Clara used for Nasal [facility] procedure cannula MD DEY 9:44:35 Lidocaine 2% added 20ml Ra Villanuevaory for local to vial [facility] anesthetic field MD WELLS 9:44:39 Heparin Flush added 2 bags Ra Knapp used for Bag to [facility] procedure (1000units/500ml field MD WELLS NS) 9:44:45 Radial Cocktail added 1 Ra Ra used for (Verapamil to syringe [facility] procedure 2mg/Nitro field MD WELLS 400mcg/Heparin 1500units) 9:52:53 Versed I.V. 2 mg Ra Clara for sedation [facility] Balw[facility] Andrews MD, RN 9:52:59 Fentanyl I.V. 50 mcg Ra Clara for sedation St Balwinder Andrews MD, RN 9:57:00 Fentanyl I.V. 50 mcg Ra Clara for sedation St Balwinder Andrews MD, RN 9:57:10 Versed I.V. 2 mg Ra Clara for sedation St Balwinder Andrews MD, RN 10:02:34 Heparin Bolus I.V. 5000 Ra Clara for landry ified units [facility] anticoagulation with Dr. MD DEY Manuel Garcia 10:04:12 Plavix P.O. 300 mg Ra Costayla for CanBalwinder Andrews antiplatelet MD RN therapy Procedure Log Time Note 9:12:53 Signed procedure consent form obtained from patient. 9:12:54 Diagnostic Cath status Urgent 9:12:55 Time tracking: Regular hours (M-F 7:00 - 5:00) 9:12:58 Plan of Care:Hemodynamics will remain stable., Cardiac rhythm will remain stable., Comfort level will be maintained., Respiratory function will remain adequate., Patient/ family verbilizes understanding of procedure., Procedure tolerated without complication., Recovers from procedure without complications.. 9:14:05 Patient Weight : 242.51 lbs 9:14:08 Patient Height : 64.96 inches 9:14:17 Patient allergic to No known allergies 9::47 Lab Result : BUN 15 mg/dl 9:: Lab Result : Hematocrit 34.2 % 9::47 Lab Result : Hemoglobin 10.5 g/dl 9::47 Lab Result : Creatinine 0.7 mg/dl 9:23:23 Clara Andrews RN sent for patient. Start room use. 9:33:58 Patient received from Med II to CCL 1 Alert and oriented. Tansferred to table in Supine position. 9:34:05 Warm blankets applied, and garrett hugger turned on for patient comfort. 9:34:05 Correct patient and procedure confirmed by team. 9:34:06 ECG and BP/O2 sat monitors applied to patient. 9:34:07 Pre-procedure instructions explained to patient. 9:34:07 Pre-op teaching completed and patient verbalized understanding. 9:34:16 H&P Date Dictated: 08/20/2018 Within 30 days and on chart.. 9:40:15 Vital chart was started 9:44:22 0.9% NaCl 100 ml/hr I.V. was administered by Clara Andrews RN; used for procedure; 9:44:29 Oxygen 2 l/min etCO2 Nasal cannula was administered by Clara Andrews RN; used for procedure; 9:44:35 Lidocaine 2% 20ml vial added to field was administered by Ra North MD; for local anesthetic; 9:44:39 Heparin Flush Bag (1000units/500ml NS) 2 bags added to field was administered by Ra North MD; used for procedure; 9:44:45 Radial Cocktail (Verapamil 2mg/Nitro 400mcg/Heparin 1500units) 1 syringe added to field was administered by Ra North MD; used for procedure; 9:45:29 Baseline sample Acquired. 9:45:34 Rhythm: sinus rhythm 9:45:35 Full Disclosure recording started 9:45:38 Family in patients room. 9:45:39 Patient NPO since Midnight. 9:45:40 Is patient on blood thinner?Yes 9:45:49 LAST DOSE PLAVIX ON MONDAY 9:45:51 Patient diabetic? Yes. 9:45:53 If diabetic: On Metformin? Yes 9:46:02 Patient not . Patient is over age 55. 9:46:05 Previous problem with sedation/anesthesia? No ? 9:46:06 Snore? Yes 9:46:07 Sleep apnea? No 9:46:08 Deviated septum? Yes 9:46:09 Opens mouth fully? Yes 9:46:10 Sticks out tongue? Yes 9:46:11 Airway obstruction? No ? 9:46:13 Dentures? No ? 9:46:19 Pre procedure: right dorsailis pedis pulse 3+ Increased pulse; moderate pressure to obliterate 9:46:51 Lab results completed and on chart. 9:47:06 IV patent on arrival in left forearm with 0.9% NaCl at O. 9:47:09 Right Radial & Right Groin area was prepped with chlora-prep and draped in sterile fashion 9:47:10 Alarms reviewed by R. N. 9:47:10 Sharps counted by scrub and verified by R.N. 9:47:14 Use device set Radial Dx or PCI 9:47:15 ACIST Syringe (43050) opened to sterile field. 9:47:15 Bag Decanter () opened to sterile field. 9:47:16 ACIST Hand Control (13503) opened to sterile field. 9:47:16 ACIST Manifold (52225) opened to sterile field. 9:47:17 Tegaderm 4 x 4 (1626W) opened to sterile field. 9:47:18 Medline Cath Pack ([id number]) opened to sterile field. 9:47:18 DIAGNOSTIC WIRE .035 260cm J wire (385671) opened to sterile field. 9:47:19 MBrace Wrist Support ([id number]) opened to sterile field. 9:47:20 SHEATH 6FR Slender (73-3179) opened to sterile field. 9:51:08 --------ALL STOP TIME OUT------ 9:51:08 Final Timeout: patient, procedure, and site verified with staff and physician. All members of the team are in agreement. 9:51:10 Right Radial & Right Groin site verified by team. 9:51:12 Maximum allowable Isovue 300 dose 300ml. Physician notified. (300ml for normal creatinines. For patients with creatinine of 1.7 or higher multiply weight(kg) x 5 divided by creatinine.) 9:51:16 Fire Safety Assessment: A--An alcohol-based skin anteseptic being used preoperatively., C--Open oxygen or nitrous oxide is being used., D--An ESU, laser, or fiber-optic light is being used. 9:51:20 Physical assessment completed. ASA score P 2 - A patient with mild systemic disease as per Ra North MD. 9:51:23 Sedation plan: IV Moderate Sedation Medication:Versed, Fentanyl 9:51:26 Procedure started. 9:51:29 Zero performed for pressure channel P1 9:52:00 Local anesthetic to right radial artery with Lidocaine 2% by Ra North MD.INITIAL ACCESS ONLY 9:52:22 A 6 Fr Short sheath was inserted into the Right Radial artery 9:52:27 Zero performed for pressure channel P1 9:52:38 A DIAGNOSTIC [place] 110cm 5 Fr catheter ([id number]) was advanced over the wire and used for Procedure. 9:52:53 Versed 2 mg I.V. was administered by Clara Andrews RN; for sedation; 9:52:59 Fentanyl 50 mcg I.V. was administered by Clara Andrews RN; for sedation; 9:53:47 GLIDE WIRE ANGLE 260cm (QF6456) opened to sterile field. 9:54:13 TORQUE DEVICE PLASTIC .038 ( TD01) opened to sterile field. 9:54:31 GLIDE TORQUE USED TO ADVANCE TIGER CATH 9:54:47 LV gram done using SHELDON 9:54:52 Injector settings: Ml/sec: 5, Volume: 15, 9:55:34 LV hemodynamics recorded. 9:55:49 EF : 55 % 9:57:00 Fentanyl 50 mcg I.V. was administered by Clara Andrews RN; for sedation; 9:57:10 Versed 2 mg I.V. was administered by Clara Andrews RN; for sedation; 9:57:23 LCA angiography performed. 9:58:15 RCA angiography performed. 9:58:17 Catheter exchanged over wire. 9:59:07 GUIDE 6FR XBLAD 3.5 catheter ([id number]) opened to sterile field. 9:59:07 WHISPER 300cm guide wire ([id number]) opened to sterile field. 9:59:08 INFLATOR Merit BasixCompak (WW1924) opened to sterile field. 9:59:53 6 Fr XBLAD 3.5 guide catheter was inserted over the wire 10:02:34 Heparin Bolus 5000 units I.V. was administered by Clara Andrews RN; for anticoagulation; verified with Dr. Chaney 10:03:37 Guide Catheter removed. unable to cannulate vessel. 10:03:43 GUIDE 6FR XBC 3 ([id number]) opened to sterile field. 10:04:12 Plavix 300 mg P.O. was administered by Clara Andrews RN; for antiplatelet therapy; 10:06:55 WHISPER 300 wire advanced. 10:08:50 Wire advanced across lesion. 10:10:21 Inflate balloon Inflation number: 1 A EMERGE OTW 3.5 x 15 balloon ([id number]) was prepped and advanced across the Mid LAD, then inflated to 12 SANTA for 0:20 (min:sec). 10:11:06 Inflation number: 2 The EMERGE OTW 3.5 x 15 balloon ([id number]) was reinflated across the Mid LAD, to 12 SANTA for 0:20 (min:sec). 10:11:30 Wire removed. 10:11:32 Balloon removed over the wire. 10:11:33 Guide catheter removed. 10:11:41 TR BAND Standard ([id number]) opened to sterile field. 10:12:28 Procedure ended.(Physican Out) 10:12:48 Sheath removed intact; hemostasis achieved with Mechanical Compression to the Right Radial artery. 10:13:24 Fluoroscopy time 08.50 minutes. 10:13:28 Fluoroscopy dose: 1276 mGy 10:13:28 Flurop Dose total: 1276 10:13:32 Contrast amount:Isovue 300 117ml. 10:13:34 Sharps counted by scrub and verified by R.N. 10:13:37 TR band inflated with 12cc of air. 10:13:41 Post-procedure physical assessment completed. ASA score P 2 - A patient with mild systemic disease as per Ra North MD. 10:13:43 Post procedure rhythm: sinus rhythm 10:13:45 Estimated blood loss: 10 ml 10:13:47 Post procedure instruction explained to patient.Patient verbalizes understanding. 10:13:47 Patient needs reinforcement of post procedure teaching. 10:14:05 Procedure type changed to Cath procedure, Diagnostic procedure, LHC, LHC w/Coronaries, Sedation Charges, Moderate Sedation up to 15 minutes, PCI procedure, PTCA, PTCA Initial 10:15:19 Procedure and supply charges have been captured, reviewed, submitted and are correct. 10:15:21 Procedure Complication : No complications 10:17:03 Vital chart was stopped 10:17:04 See physician's report for complete and final results. 10:17:06 Report given to [facility]. 10:17:09 Patient transfered to [facility] with Bed. 10:17:11 Procedure ended. 10:17:11 Full Disclosure recording stopped 10:17:14 End room use (Document Last) Intervention Summary Intervention Notes Time ActionType Lesion and Equipment Action# Pressure Duration Attributes Used 10:10:21 Inflate Mid LAD EMERGE OTW 1 12 00:20 balloon 3.5 x 15 balloon ([id number]) 10:11:06 Reinflate Mid LAD EMERGE OTW 2 12 00:20 balloon 3.5 x 15 balloon ([id number]) Device Usage Item Name Manufacture Quantity Catalog Number Hospital Part Current Min imal Lot# / Charge Number Stock Stock Serial# Code ACIST Acist 1 29675 561644 274349 648241 20 Syringe Medical (71452) Systems Inc Bag Decanter Microtek 1 240759 76465 457313 5 () Medical Inc. ACIST Hand Acist 1 04553 592467 167937 616600 5 Control Medical (40428) Systems Inc ACIST Acist 1 41168 116663 800143 204220 5 Manifold Medical (15059) Systems Inc Tegaderm 4 x 3M 1 1626W 174695 711396 149385 5 4 (1626W) Medline Cath Medline 1 [id number] 248173 36360 218519 5 Pack ([id number]) DIAGNOSTIC [facility] Mariano 1 167990 776195 106557 550452 30 WIRE .035 260cm J wire (329781) MBrace Wrist Advanced 1 140-0250-00 708311 93044 098312 5 Support Vascular ([id number]) Dynamics SHEATH 6FR Terumo 1 [id number] 576743 326296 033647 5 Slender (80-1060) DIAGNOSTIC Terumo 1 40-5013 142013 329632 868216 5 [place] 110cm 5 Fr catheter (232815) GLIDE WIRE Terumo 1 [id number] 652001 761812 436832 5 ANGLE 260cm (SW2941) TORQUE [place] 1 TD01 554798 615687 250656 5 DEVICE Scientific PLASTIC .038 ( TD01) GUIDE 6FR Cardinal 1 [id number] 194129 385579 484933 10 XBLAD 3.5 Health catheter (43694396) WHISPER Lopez 1 [id number] 803048 987737 538606 5 300cm guide Vascular wire (4404498NH) INFLATOR Merit 1 WK8187 592154 311946 687714 15 Merit Medical BasixCompak (IK8439) GUIDE 6FR Cardinal 1 [id number] 515151 05453 050266 5 XBC 3 Health (76333533) EMERGE OTW [place] 1 [id number] 158559 405703 436700 5 [id number] 3.5 x 15 Scientific balloon ([id number]) TR BAND Terumo 1 [id number] 696030 661049 497988 40 Standard ([id number]) Signature Audit [place] Stage Time Signature Unsigned Intra-Procedure 08/21/2018 Kiersten Flores 10:17:28 AM RT(R) Signatures Monitor : Kiersten Flores Signature : RT Date : Time : [facility] [address] [place] [address]
[~2018-08-20 13:20] MED LIST changes: +HYDROCODON-ACE1 EA10 PO
[2018-08-20] MEDS ORDERED: GLUCOPHAGE1000 MG PO (14:01)
[2018-08-20 14:21] LABS: BASOPHILS 0.1 % (0-2); EOSINOPHILS 5.7 % (0-7); HEMATOCRIT 34.2 % (36.0-48.0); HEMOGLOBIN 10.5 g/dL (12-16); IMMATURE GRANULOCYTES 0.1 % (0-5); MCH 26.4 pg (26.0-34.0); MCHC 30.7 g/dL (31.0-37.0); MCV 85.9 fL (80.0-100.0); MEAN PLATELET VOLUME 9.8 fL (7.4-10.4); NEUTROPHILS 43.1 % (40-80); PLATELET COUNT 310 10x3/uL (130-400); RBC 3.98 10x6/uL (4.00-5.40)
[2018-08-20 14:30] VITALS: BP 153/58; BMI 40.3
[2018-08-20 14:46] LABS: ALBUMIN 3.3 g/dL (3.4-5.0); ALKALINE PHOSPHATASE 39 U/L (46-116); ALT (SGPT) 20 U/L (10-68); BILIRUBIN - TOTAL 0.13 mg/dL (0.2-1.3); CALC OSMOLALITY 284 mosm/kg (275-300); CALCIUM 8.4 mg/dL (8.5-10.1); CARBON DIOXIDE 29.8 mmol/L (21.0-32.0); CHLORIDE - SERUM 105 mmol/L (98-107); CREATININE - SERUM 0.7 mg/dL (0.6-1.3); POTASSIUM - SERUM 3.6 mmol/L (3.5-5.1); PROTEIN - SERUM 6.3 g/dL (6.4-8.2); SODIUM 143 mmol/L (136-145); UREA NITROGEN 15 mg/dL (7-18); eGFR NON AFRICAN AMERICAN 87 mL/min (90-120)
[2018-08-20 14:49] LABS: GLUCOSE 75 mg/dL (74-106)
[2018-08-20 14:58] LABS: CKMB 1.1 U/L (0.0-3.6); CREATINE KINASE 67 UL (21-215)
[2018-08-20 15:02] LABS: TROPONIN-I < 0.017 ng/mL (0.000-0.060)
[2018-08-20 15:16] VITALS: BMI 40.3
[2018-08-20] MEDS ORDERED: GLIMEPIRIDE4 MG PO (15:17)
[2018-08-20] MEDS ORDERED: LEVOTHYROXINE100 MCG PO (15:18)
[2018-08-20 15:44] VITALS: BP 154/66; BP 156/65
--- NOTE | 2018-08-20 18:12 | NUR ---
LYING QUIETLY. DENIES ANY NEEDS. TELEMERTY SHOWS SR. LAB SHOWS NEG TROPIN
--- NOTE | 2018-08-20 18:25 | NUR ---
LYING QUIETLY, NO PAIN. FAMILY AT BEDSIDE. TELEMEMERTY SHOWS SR.
--- NOTE | 2018-08-20 18:46 | HP ---
PATIENT: JHON RJAAN MEDICAL RECORD: [id number] ACCOUNT: [id number] LOCATION:[address] : [birth year] ADMISSION DATE: 08/20/18 PCP: YOANA SANDERS DO HISTORY AND PHYSICAL EXAMINATION HISTORY OF PRESENT ILLNESS: Ms. Rajan is a 73-year-old white female with known cardiac disease. She has been experiencing increasing weakness, chest pain, and shortness of breath over the last 1-2 months. She has a history of multiple stents. She is scheduled for an upcoming colonoscopy due to recent guaiac positive and hemoglobin of 10. She is on iron supplementation. She is having difficulties with walking due to her weakness and shortness of breath. She feels symptoms are similar to when she had previous cardiac disease. PAST MEDICAL AND CURRENT PROBLEM LIST: Includes history of DVT, diabetes with neuropathy, B12, GERD, vitamin D deficiency, hypothyroidism, obesity, coronary artery disease with multiple stents, hyperlipidemia, and hypertension. PAST SURGICAL HISTORY: Includes previous angioplasty, colonoscopy, and endoscopy. ALLERGIES OR INTOLERANCES: INCLUDE ETODOLAC, TIZANIDINE, METHOCARBAMOL. CURRENT HOME MEDICATIONS: Levothyroxine 100 mcg a day, Plavix 75 a day, amlodipine 5 a day, glimepiride 4 mg a day, B12 a month, pantoprazole 40 mg a day, venlafaxine 75 mg b.i.d., metformin 1000 b.i.d., metoprolol 50 b.i.d., meclizine p.r.n., pioglitazone 45 mg a day, pravastatin 40 mg a day, Lyrica 50 t.i.d., lisinopril/hydrochlorothiazide 20/12.5 one p.o. daily, Trulicity weekly, Toujeo 25 units a day, multivitamin, aspirin a day, and p.r.n. nitroglycerin. FAMILY HISTORY: Significant for coronary artery disease and diabetes. SOCIAL HISTORY: The patient is . She does not smoke. She does not drink. REVIEW OF SYSTEMS: She denies any weight loss. She does complain of chest pain, worsening shortness of breath, generalized weakness, difficulties walking, leg and back pain. PHYSICAL EXAMINATION: GENERAL: She appears in some mild distress. She does appear somewhat anxious also. HEENT: Sclerae nonicteric. Mucous membranes moist. NECK: Soft. HEART: Regular. LUNGS: Clear. ABDOMEN: Soft. IMPRESSION: 1. Chest pain/worsening dyspnea. 2. Known history of coronary artery disease. 3. Diabetes. 4. Diabetic neuropathy. 5. Obesity. 6. Hypertension. 7. Hyperlipidemia. HISTORY AND PHYSICAL [id number] JHON RAJAN 8. Hypothyroidism. 9. GERD. PLAN: Admit. Serial enzymes. EKG is sent with the patient. See orders for rest of plan. TRANSINT:[id number] Voice Confirmation ID: [id number] DOCUMENT ID: [id number] YOANA SANDERS DO at 1846 CC: [id number] DICTATION DATE: 08/20/18 1503 BOILER OR ENGINE OPERATOR: 08/20/18 1539 ADM IN [facility] [address] [place] [address]
--- NOTE | 2018-08-20 19:17 | NUR ---
RECIEVED UP IN BED WITH EYES CLOSED. NO S/S OF DISTRESS OBSERVED. ALERT AND ORIENTED X4. UP AD JULY TO B/R. DTRS SPOKE WITH THIS NURSE OUTSIDE OF ROOM AND ASKED THIS NURSE TO GIVE PT ANOTHER NITRO TABLET. EXPLAINED THE SIDE EFFECTS OF GIVING TO MUCH NITRO. THEY BOTH VOICED UNDERSTANDING. PT DENIES HAVING ANY PAIN. EDUCATED ON PROCEDURE AND WHAT TO EXPECT. TELEMETRY IN PLACE. INSPIRATORY WHEEZES TO RIGHT UPPER AND LOWER LOBES OF LUNGS.
[2018-08-20 21:14] LABS: APPEARANCE CLEAR (CLEAR); BACTERIA FEW /hpf (NONE SEEN); BILIRUBIN NEGATIVE (NEGATIVE); COLOR YELLOW (YELLOW); EPITHELIAL CELLS 0-5 /hpf (0-5); GLUCOSE NEGATIVE (NEGATIVE); KETONE NEGATIVE (NEGATIVE); NITRITE NEGATIVE (NEGATIVE); PROTEIN NEGATIVE (NEGATIVE); RED CELLS - URINE OCC /hpf (0-5); UROBILINOGEN NORMAL (NORMAL); WHITE CELLS - URINE 0-5 /hpf (0-5)
[2018-08-20 21:25] VITALS: BP 133/49
[2018-08-20 21:34] VITALS: BP 143/58
[2018-08-20 22:09] LABS: CKMB 1.1 U/L (0.0-3.6); CREATINE KINASE 54 UL (21-215)
[2018-08-20 22:11] LABS: TROPONIN-I < 0.017 ng/mL (0.000-0.060)
[2018-08-21 01:56] VITALS: BP 152/61
--- NOTE | 2018-08-21 05:35 | NUR ---
C/O CHEST PAIN CONSTANT AT 5. NEW ORDER FOR NITRO PASTE X1 FOR CHEST PAIN.
--- NOTE | 2018-08-21 06:18 | NUR ---
PT STATED CHEST PAIN GONE FOR NOW.
[2018-08-21 06:23] VITALS: BP 167/68
[2018-08-21 07:00] LABS: CKMB 0.6 U/L (0.0-3.6); CREATINE KINASE 48 UL (21-215)
[2018-08-21 07:01] LABS: TROPONIN-I < 0.017 ng/mL (0.000-0.060)
[2018-08-21 07:44] VITALS: BP 159/70
--- NOTE | 2018-08-21 08:45 | NUR ---
PRE-OP MEDICATIONS GIVEN AT THIS TIME.
--- NOTE | 2018-08-21 09:23 | NUR ---
PT TO MATERIALS BRANCH CHIEF
--- NOTE | 2018-08-21 10:35 | NUR ---
RECEIVED PT BACK TO ROOM 2124, VITAL SIGNS STABLE, PLACED PT ON Q15MIN VITALS. TR BAND TO RT WRIST. DRESSING WITH A SMEAR OF BLOOD, NO SIGNS OF ACTIVE BLEEDING OR HEMATOMA. PT DENIES ANY NEEDS AT THIS TIME. CALL LIGHT IN REACH, NAD NOTED, WILL CONTINUE TO MONITOR.
[2018-08-21 11:49] VITALS: BP 167/76
--- NOTE | 2018-08-21 12:26 | OP ---
PATIENT NAME: JHON RAJAN MEDICAL RECORD: [id number] :49 LOCATION:D.M2 D.2125 ADMISSION DATE:08/20/18 SURGEON: SANDIP HONG MD DATE OF OPERATION: 08/21/2018 PROCEDURE: Left heart catheterization, selective coronary angiography, right radial approach. CATHETERS: A 5-Dutch sheath, 5/4 left and right [place], 5/4 pig. The procedure was well tolerated. The patient returned to the bray, sheath removed. ExoSeal device placed. FINDINGS: Left ventriculography in 30-degree SHELDON view: Normal wall motion, normal systolic function. CORONARY ANATOMY: LEFT MAIN: Left main is free of disease. LAD: Has a restenosis somewhat elongated of the previously placed stent 90%. No progression of [place] disease. CIRCUMFLEX: Free of disease. RIGHT CORONARY ARTERY: Previously placed stent is free of disease. IMPRESSION AND PLAN: Intervention of restenotic stent. DESCRIPTION OF PROCEDURE: Using an indwelling radial sheath, XB LAD guide catheter provided good guide catheter support followed by a 300 cm Whisper wire, which was placed across the tightly occluded portion of the LAD. The balloon used was a 3.5 x 15 mm Lea up to 14 atmospheres. Final angiography shows excellent resolution of a 90% diffuse restenosis, no significant residual. This is typical of a soft restenotic tissue with no waisting. Sheath closed with TR band. Plavix was reloaded in the lab. TRANSINT:[id number] Voice Confirmation ID: [id number] DOCUMENT ID: [id number] SANDIP HONG MD at 1226 CC: [id number] DICTATION DATE: 08/21/18 1018 REAL ESTATE SUBAGENT: 08/21/18 1115 ADM IN [facility] [address] [place] [id number]
--- NOTE | 2018-08-21 14:19 | NUR ---
TOTAL AIR REMOVED OUT OF TR BAND. NOT BLEEDING OR HEMATOMA NOTED. PT RESTING COMFORTABLY, DENIES ANY NEEDS AT THIS TIME. CALL LIGHT IN REACH, NAD NOTED, WILL CONTINUE TO MONITOR.
--- NOTE | 2018-08-21 15:24 | NUR ---
PROVIDED VERBAL AND WRITTEN DISCHARGE TEACHING TO PT, WHO VERBALIZED UNDERSTANDING REGARDING TEACHING. HEART MONITOR REMOVED AND TAKEN TO FREYA CLERICAL SUPERVISOR. TR BAND REMOVED COMPLETELY, BANDADE APPLIED TO RT WRIST, NO BLEEDING OR HEMATOMA NOTED. PT WAITING ON RIDE, WILL NOTIFY NURSE WHEN RIDE GETS HERE.
--- NOTE | 2018-08-21 15:41 | NUR ---
REMOVED LT FA IV WITH CATHETER TIP INTACT. PT LEFT UNIT VIA WHEELCHAIR, WITH ALL BELONGINGS, DRESSING TO RIGHT WRIST CDI. NAD NOTED.
--- NOTE | 2018-08-22 09:41 | MORECARE ---
CASE MANAGEMENT DISCHARGE SUMMARY PATIENT: JHON RAJAN UNIT: [id number] ADM DATE: 08/20/18 AGE: 73 : [birth year] SEX: F ROOM/BED: D.3957 AUTHOR: MINOO SCHUMACHER PHYSICIAN: REFERRING PHYSICIAN: YOANA SANDERS DO DATE OF SERVICE: 08/22/18 Discharge Plan Patient Name: [facility]ON RAJAN [facility] [facility] 1945 Planned Disposition: Home Anticipated Discharge Date: 08/21/18 Discharge Date: 08/21/2018 Expected LOS: 1 Initial Reviewer: [email or web address] Initial Review Date: 08/22/2018 Generated: 08/22/18 10:41 am Patient Name: JHON RAJAN Page [id number] at 0941 All edits/amendments must be made on the electronic document DICTATION DATE: 08/22/18940 INDIRECT SALES REPRESENTATIVE: EUNICE 08/22/18940 RPT#: [id number] DC DATE:08/21/18 STATUS: DIS IN [facility] [address] [place] [address] END OF REPORT
== END 2018-08-21 15:43 | disposition home or self-care (01) ==
LOC: D.M2 13:20 → OBSVTIME 13:21 → D.M2 08-21 15:43
PROVIDERS: ADMIT Family Medicine; ATTEND Family Medicine
DX: I25.119 Atherosclerotic heart disease of native coronary artery with unspecified angina pectoris (principal); T82.855A Stenosis of coronary artery stent, initial encounter; E11.40 Type 2 diabetes mellitus with diabetic neuropathy, unspecified; E66.9 Obesity, unspecified; I10 Essential (primary) hypertension; E78.5 Hyperlipidemia, unspecified; E03.9 Hypothyroidism, unspecified; K21.9 Gastro-esophageal reflux disease without esophagitis; Y83.8 Other surgical procedures as the cause of abnormal reaction of the patient, or of later complication, without mention of misadventure at the time of the procedure; I24.9 Acute ischemic heart disease, unspecified

== ENCOUNTER 2018-10-19 08:00 | Inpatient (IN) | payer MEDICARE, BC ==
[~2018-10-19] VITALS: Ht 165.1 cm; Wt 110.0 kg
--- NOTE | ~2018-10-19 | HEMODYNAMI ---
PATIENT:JHON RAJAN MEDICAL RECORD: [id number] : 49 [facility] [id number] ADMISSION DATE: 10/19/18 Generatedon:10/19/201810:09 Patient name: JHON RAJAN Patient #: [id number] SSN: : 1945 Date of study: 10/19/2018 Page: Of Hemodynamic Procedure Report Patient Data Patient Demographics Procedure consent was obtained First Name: JHON Gender: Female Last Name: MOHINI : 1945 [facility] Initial: RAJI Age: 73 year(s) Patient #: [id number] Race: Additional ID: [id number] Contact details [address]: [address] [place] [address] State: [place] City: [place] Zip code: [address] Past Medical History History of disease Date Diagnosis Comments CAD Allergies: No known allergies Admission Admission Data Admission Date: 10/19/2018 Admission Time: 9:14 Room #: D2118 Lab Results Lab Result Date: 10/19/2018 Lab Result Time: 0:00 Biochemistry Name Units Result Min Max BUN mg/dl 20 --(----)*- 7 18 Creatinine mg/dl 0.7 --(*---)-- 0.6 1.3 eGFR ml/min 87 -*(----)-- 90 120 NONAFRICAN CBC Name Units Result Min Max Hemoglobin g/dl 10.2 *-(----)-- 13.5 17.5 Procedure Procedure Types Cath Procedure Diagnostic Procedure LHC LHC w/Coronaries FFR/IVUS FFR Initial FFR Additional PCI Procedure Coronary Stent Coronary Stent Initial Procedure Description Procedure Date Procedure Date: 10/19/2018 Procedure Start Time: 9:29 Procedure End Time: 10:09 Procedure Staff Name Function Yosvany Morales MD Performing Physician Mike Alarcon RT Monitor Omi Schmitt RN Nurse Ann Jimenez RT Scrub Procedure Data Cath Procedure Fluoroscopy Diagnostic fluoroscopy Total fluoroscopy Time: 7.1 time: 7.1 min min Diagnostic fluoroscopy Total fluoroscopy dose: dose: 2085 mGy 2085 mGy Contrast Material Contrast Material Type Amount (ml) Isovue 300 127 Entry Location Entry Primary Successful Side Size Upsize Upsize Entry Closure Succes sful Closure Location (Fr) 1 (Fr) 2 (Fr) Remarks Device Remarks Radial Right 6 Fr artery Short Femoral Right 5 Fr 6 Fr Exoseal artery Short Estimated blood loss: 10 ml Diagnostic catheters Device Type Used For End Catheter Placement DIAGNOSTIC Enders 110cm 5 Procedure Fr catheter (100838) MULTIPACK Pigtail 5 Fr Procedure catheter MULTIPACK JL 4.0 5Fr Procedure catheter MULTIPACK 3DRC 5Fr Procedure catheter Procedure Medications Medication Administration Route Dosage Oxygen etCO2 Nasal cannula 2 l/min Heparin Flush Bag added to field 2 bags (1000units/500ml NS) 0.9% NaCl I.V. 100 ml/hr Lidocaine 2% added to field 20 Radial Cocktail added to field 1 syringe (Verapamil 2mg/Nitro 400mcg/Heparin 1500units) Fentanyl I.V. 50 mcg Versed I.V. 1 mg Radial Cocktail I.A. 1 syringe (Verapamil 2mg/Nitro 400mcg/Heparin 1500units) Fentanyl I.V. 50 mcg Versed I.V. 1 mg Fentanyl I.V. 50 mcg Heparin Bolus I.V. 4000 units Hemodynamics Rest HGB: 10.2 (g/dl) Heart Rate: 62 (bpm) Pressure Samples Time Site Value (mmHg) Purpose Heart Use Rate(bpm) 9:37 LV 155/28,43 Snapshot 77 Snapshots Pre Cath Intra NCS Post Cath Vital Signs Time Heart Resp SPO2 etCO2 NIBP (mmHg) Rhythm Pain Sedation Rate (ipm) (%) (mmHg) Status Level (bpm) 9:06:42 60 16 96 0 161/75(139) NSR 0 (11) 10(A) , No pain 9:11:10 61 17 95 0 166/79(132) NSR 0 (11) 10(A) , No pain 9:15:45 62 16 97 40.4 165/74(132) NSR 0 (11) 10(A) , No pain 9:20:17 62 17 98 37.4 170/78(135) NSR 0 (11) 10(A) , No pain 9:24:50 65 16 96 38.9 169/82(143) NSR 0 (11) 10(A) , No pain 9:30:23 70 16 94 24.6 166/90(144) NSR 0 (11) 9(A) , No pain 9:34:48 74 17 90 28.4 146/81(121) NSR 0 (11) 9(A) , No pain 9:39:12 77 17 92 44.1 161/78(109) NSR 0 (11) 9(A) , No pain 9:43:34 74 17 90 45.6 162/88(139) NSR 0 (11) 9(A) , No pain 9:49:04 75 17 90 47.9 165/83(121) NSR 0 (11) 9(A) , No pain 9:53:30 80 17 92 43.4 164/83(130) NSR 0 (11) 9(A) , No pain 9:57:54 78 17 92 44.9 157/82(128) NSR 0 (11) 9(A) , No pain 10:02:18 75 16 92 45.6 154/71(119) NSR 0 (11) 9(A) , No pain 10:06:36 74 11 93 42.6 143/69(117) NSR 0 (11) 9(A) , No pain Medications Time Medication Route Dose Verified Delivered Reason Note s Effectiveness by by 9:15:20 Oxygen etCO2 2 l/min Yosvany Braga Per physician Nasal Carmen Schmitt RN cannula 9:15:28 Heparin Flush added 2 bags Yosvany Braga used for Bag to Carmen Schmitt RN procedure (1000units/500ml field NS) 9:15:37 0.9% NaCl I.V. 100 Yosvany Braga Per physician ml/hr Carmen Schmitt RN 9:15:46 Lidocaine 2% added 20ml Yosvany Braga used for to vial Carmen Schmitt tax services intern field 9:15:55 Radial Cocktail added 1 Yosvany Braga used for (Verapamil to syringe Carmen Schmitt tax services intern 2mg/Nitro field 400mcg/Heparin 1500units) 9:27:07 Fentanyl I.V. 50 mcg Yosvany Braga for sedation Carmen Schmitt RN 9:27:13 Versed I.V. 1 mg Yosvany Braga for sedation Carmen Schmitt RN 9:31:49 Radial Cocktail I.A. 1 Yosvany Bar for (Verapamil syringe Carmen Morales MD vasodilation 2mg/Nitro 400mcg/Heparin 1500units) 9:31:54 Fentanyl I.V. 50 mcg Yosvany Braga for sedation Carmen Schmitt RN 9:31:59 Versed I.V. 1 mg Yosvany Braga for sedation Carmen Schmitt RN 9:41:19 Fentanyl I.V. 50 mcg Yosvany Braga for sedation Carmen Schmitt RN 9:49:34 Heparin Bolus I.V. 4000 Yosvany Braga for units Carmen Schmitt RN anticoagulation Procedure Log Time Note 8:28:37 Diagnostic Cath Status : Elective 8:49:08 Mike Alarcon RT(R) (CV) sent for patient. Start room use. 9:05:06 Time tracking: Regular hours (M-F 7:00 - 5:00) 9:05:10 Plan of Care:Hemodynamics will remain stable., Cardiac rhythm will remain stable., Comfort level will be maintained., Respiratory function will remain adequate., Patient/ family verbilizes understanding of procedure., Procedure tolerated without complication., Recovers from procedure without complications.. 9:05:17 Patient received from ED to CCL 2 Alert and oriented. Tansferred to table in Supine position. 9:05:18 Warm blankets applied, and garrett hugger turned on for patient comfort. 9:05:18 Correct patient and procedure confirmed by team. 9:05:19 Signed procedure consent form obtained from patient. 9:05:20 ECG and BP/O2 sat monitors applied to patient. 9:05:21 Baseline sample Acquired. 9:05:21 Vital chart was started 9:05:25 Rhythm: sinus rhythm 9:05:26 Full Disclosure recording started 9:05:33 H&P Date Dictated: 10/19/2018 ER History on chart., New H&P dictated by physician.. 9:05:42 Pre-procedure instructions explained to patient. 9:05:43 Pre-op teaching completed and patient verbalized understanding. 9:05:46 Family in waiting room. 9:05:48 Patient NPO since Midnight. 9:05:49 Is the patient allergic to Iodine/contrast media? No. 9:05:51 Was the patient premedicated? No 9:05:54 Is patient on blood thinner?Yes 9:05:56 ACC The patient was administered the following blood thiners within the last 24 hours: ACCPlavix 9:12:41 Baseline sample Acquired. 9:13:02 Patient allergic to No known allergies 9:13:07 Patient diabetic? Yes. 9:13:24 If on Metformin: Last Dose? 10/17/2018 9:13:27 Patient not . Patient is over age 55. 9:13:30 ----Pre-sedation anethsthesia assessment.---- 9:13:32 Previous problem with sedation/anesthesia? No ? 9:13:34 Snore? Yes 9:13:36 Sleep apnea? No 9:13:38 Deviated septum? No 9:13:39 Opens mouth fully? Yes 9:13:40 Sticks out tongue? Yes 9:13:43 Airway obstruction? No ? 9:13:47 Dentures? No ? 9:13:52 Pre procedure: right dorsailis pedis pulse 1+ Palpable, but thready & weak; easily obliterated 9:13:57 Patient pain scale 0/10 ?. 9:14:04 IV patent on arrival in left hand with 0.9% NaCl at [facility]. 9:15:02 Right Radial & Right Groin area was prepped with chlora-prep and draped in sterile fashion 9:15:20 Oxygen 2 l/min etCO2 Nasal cannula was administered by Omi Schmitt RN; Per physician; 9:15:28 Heparin Flush Bag (1000units/500ml NS) 2 bags added to field was administered by Omi Schmitt RN; used for procedure; 9:15:37 0.9% NaCl 100 ml/hr I.V. was administered by Omi Schmitt RN; Per physician; 9:15:46 Lidocaine 2% 20ml vial added to field was administered by Omi Schmitt RN; used for procedure; 9:15:55 Radial Cocktail (Verapamil 2mg/Nitro 400mcg/Heparin 1500units) 1 syringe added to field was administered by Omi Schmitt RN; used for procedure; 9:17:03 Lab Result : Creatinine 0.7 mg/dl 9:17:03 Lab Result : BUN 20 mg/dl 9:17:03 Lab Result : eGFR NONAFRICAN 87 ml/min 9:17:03 Lab Result : Hemoglobin 10.2 g/dl 9:17:10 Alarms reviewed by R. N. 9:18:08 Sharps counted by scrub and verified by R.N. 9:18:13 Use device set Radial Dx or PCI 9:18:15 ACIST Syringe (03966) opened to sterile field. 9:18:15 Medline Cath Pack ([id number]) opened to sterile field. 9:18:16 Bag Decanter (2002S) opened to sterile field. 9:18:17 ACIST Hand Control (65804) opened to sterile field. 9:18:17 ACIST Manifold (67777) opened to sterile field. 9:18:18 Tegaderm 4 x 4 (1626W) opened to sterile field. 9:18:19 MBrace Wrist Support ([id number]) opened to sterile field. 9:18:21 EMERALD Guide Wire (091-254) opened to sterile field. 9:18:32 SHEATH 6FR RAIN (1123643) opened to sterile field. 9:24:50 Zero performed for pressure channel P1 9:26:32 Physician arrived 9:26:32 --------ALL STOP TIME OUT------ 9:26:33 Final Timeout: patient, procedure, and site verified with staff and physician. All members of the team are in agreement. 9:26:36 Right Radial & Right Groin site verified by team. 9:26:40 Fire Safety Assessment: A--An alcohol-based skin anteseptic being used preoperatively., C--Open oxygen or nitrous oxide is being used., D--An ESU, laser, or fiber-optic light is being used. 9:26:44 Physical assessment completed. ASA score P 2 - A patient with mild systemic disease as per Yosvany Morales MD. 9:26:51 2) 60-89 Mildly reduced kidney function, and other findings (as for stage 1) point to kidney disease. 9:27:07 Fentanyl 50 mcg I.V. was administered by Omi Schmitt RN; for sedation; 9:27:13 Versed 1 mg I.V. was administered by Omi Schmitt RN; for sedation; 9:27:29 Maximum allowable contrast does (3.7 X eGFR X 0.75)241 ml. 9:27:34 Sedation plan: IV Moderate Sedation Medication:Versed, Fentanyl 9:29:36 Procedure started. 9:29:42 Local anesthetic to right radial artery with Lidocaine 2% by Yosvany Morales MD.INITIAL ACCESS ONLY 9:30:22 A 6 Fr Short sheath was inserted into the Right Radial artery 9:30:45 A DIAGNOSTIC Enders 110cm 5 Fr catheter (650043) was advanced over the wire and used for Procedure. 9:31:49 Radial Cocktail (Verapamil 2mg/Nitro 400mcg/Heparin 1500units) 1 syringe I.A. was administered by Yosvany Morales MD; for vasodilation; 9:31:54 Fentanyl 50 mcg I.V. was administered by Omi Schmitt RN; for sedation; 9:31:59 Versed 1 mg I.V. was administered by Omi Schmitt RN; for sedation; 9:33:51 GLIDE WIRE ADVANTAGE 260cm (NH0443) opened to sterile field. 9:34:15 GLIDE WIRE ADVANCED 9:35:17 UNABLE TO ADVANCE, ABORTING RADIAL 9:35:25 SHEATH 5FR [place] (MKB860) opened to sterile field. 9:36:00 Local anesthetic to right femoral artery with Lidocaine 2% by Yosvany Morales MD.ADDITIONAL ACCESS 9:36:48 A 5 Fr sheath was inserted into the Right Femoral artery 9:36:56 Use device set Multipack Set 9:36:59 DIAGNOSTIC Multipack 5Fr catheter set (HN0581) opened to sterile field. 9:37:07 A MULTIPACK Pigtail 5 Fr catheter was advanced over the wire and used for Procedure. 9:37:20 LV gram done using SHELDON 9:37:30 LV hemodynamics recorded. 9:37:36 EF : 50 % 9:37:38 Catheter removed. 9:38:46 A MULTIPACK JL 4.0 5Fr catheter was advanced over the wire and used for Procedure. 9:38:50 LCA angiography performed. 9:38:51 Catheter removed. 9:39:00 A MULTIPACK 3DRC 5Fr catheter was advanced over the wire and used for Procedure. 9:39:26 RCA angiography performed. 9:40:15 INFLATOR Merit BasixCompak (ZY8817) opened to sterile field. 9:41:19 Fentanyl 50 mcg I.V. was administered by Omi Schmitt RN; for sedation; 9:41:34 SHEATH 6FR [place] (NUT260) opened to sterile field. 9:41:36 Clear[place] Verrata Plus pressure wire (77825W) opened to sterile field. 9:42:47 Sheath upsized to a 6 Fr Short. 9:43:37 GUIDE 6FR XBLAD 3.5 catheter ([id number]) opened to sterile field. 9:43:58 6 Fr XBLAD 3.5 guide catheter was inserted over the wire 9:44:44 PRESSURE wire advanced. 9:46:13 FFR/IFR wire advanced. 9:46:28 IFR 0.85 9:47:54 Place stent Inflation Number: 1 A CARMINE RX 3.0 x 26 stent ([id number]) was prepped and advanced across the Mid LAD 85. The stent was deployed at 17 SANTA for 0:10 (min:sec) 0. 9:48:24 Inflation number: 2 The stent balloon was then re-inflated across the Mid LAD 0 to 21 SANTA for 0:10 (min:sec) . 9:49:34 Heparin Bolus 4000 units I.V. was administered by Omi Schmitt RN; for anticoagulation; 9:49:36 Stent catheter was removed intact over wire. 9:50:22 Place stent Inflation Number: 1 A CARMINE RX 3.5 x 12 stent ([id number]) was prepped and advanced across the Prox LAD 85. The stent was deployed at 21 SANTA for 0:10 (min:sec) 0. 9:50:31 Stent catheter was removed intact over wire. 9:51:17 Wire removed. 9:51:18 Guide catheter removed. 9:51:38 GUIDE 6FR AR 2.0 catheter (ND4XE30) opened to sterile field. 9:51:54 6 Fr AR 2 guide catheter was inserted over the wire 9:53:12 PRESSURE wire advanced. 9:55:01 RCA 9:55:08 FFR/IFR wire advanced. 9:55:18 IFR 1.03 9:56:37 PRESSURE WIRE REMOVED 9:57:50 PRESSURE wire advanced. 9:58:58 PRESSURE WIRE ADVANCED INTO PLB. IFR 1.05 9:59:11 Wire removed. 9:59:12 Guide catheter removed. 10:00:01 EXOSEAL 6Fr (EX600) opened to sterile field. 10:00:23 Sheath removed intact; hemostasis achieved with Exoseal to the Right Femoral artery. 10:00:26 TR BAND Standard ([id number]) opened to sterile field. 10:00:32 Procedure ended.(Physican Out) 10:00:45 Fluoroscopy time 07.10 minutes. 10:01:02 Flurop Dose total: 2085 10:01:02 Fluoroscopy dose: 2085 mGy 10:01:10 Contrast amount:Isovue 300 127ml. 10:02:30 Sharps counted by scrub and verified by R.N. 10:03:13 Procedure type changed to Cath procedure, Diagnostic procedure, LHC, LHC w/Coronaries, FFR/IVUS, FFR Initial, FFR Additional, PCI procedure, Coronary Stent, Coronary Stent Initial 10:04:21 Insertion/operative site no bleeding no hematoma. 10:04:24 Post-op/insertion site Right Femoral artery dressed using a 4 x 4 and Tegaderm. 10:04:30 Post right femoral artery:stable 10:04:33 Post Procedure Pulses reassessed and unchanged 10:04:42 Post procedure rhythm: sinus rhythm 10:04:52 Estimated blood loss: 10 ml 10:05:56 Patient needs reinforcement of post procedure teaching. 10:05:58 Procedure and supply charges have been captured, reviewed, submitted and are correct. 10:08:57 Vital chart was stopped 10:08:58 See physician's report for complete and final results. 10:09:00 Report given to Pre/Post Procedure Room. 10:09:03 Patient transfered to Pre/Post Procedure Room with Stretcher. 10:09:06 Procedure ended. 10:09:06 Full Disclosure recording stopped 10:09:11 End room use (Document Last) Intervention Summary Intervention Notes Time ActionType Lesion and Equipment Used Action# Pressure Duration Attributes 9:47:54 Place stent Mid LAD CARMINE RX 3.0 x 1 17 00:10 26 stent ([id number]) 9:48:24 Reinflate Mid LAD CARMINE RX 3.0 x 2 21 00:10 stent 26 stent balloon ([id number]) 9:50:22 Place stent Prox LAD CARMINE RX 3.5 x 1 21 00:10 12 stent ([id number]) Device Usage Item Name Manufacture Quantity Catalog Hospital Part Current Minimal Lot# / Number Charge Number Stock Stock Serial# Code ACIST Syringe Acist 1 36614 545221 535065 908501 20 (71600) Medical Systems Inc Medline Cath Medline 1 [id number] 002422 24212 180276 5 Pack ([id number]) Bag Decanter Microtek 1 2001S 712105 85602 504725 5 (2001S) Medical Inc. ACIST Hand Acist 1 47947 000218 312660 830747 5 Control Medical (00627) Systems Inc ACIST Manifold Acist 1 22497 248156 245374 588596 5 (89122) Medical Systems Inc Tegaderm 4 x 4 3M 1 1626W 092685 329415 260555 5 (1626W) MBrace Wrist Advanced 1 140-0250-00 573359 70726 363780 5 Support Vascular ([id number]) Dynamics EMERALD Guide Cardinal 1 502-455 457187 378958 188763 5 Wire (502-455) Health SHEATH 6FR Cardinal 1 9409873 912584 8002994 469638 5 RAIN (5773193) Health DIAGNOSTIC Terumo 1 40-5013 608155 434258 176923 5 Enders 110cm 5 Fr catheter (590404) GLIDE WIRE Terumo 1 CE3465 873205 908218 5 ADVANTAGE 260cm (YX7299) SHEATH 5FR Terumo 1 UPH456 168324 464032 766475 5 [place] (KJQ295) DIAGNOSTIC Cardinal 1 OS1099 007223 47749 078797 30 Multipack 5Fr Health catheter set (CO1699) MULTIPACK Cardinal 1 028752 5 Pigtail 5 Fr Health catheter MULTIPACK JL Cardinal 1 625170 5 4.0 5Fr Health catheter MULTIPACK 3DRC Cardinal 1 756347 5 5Fr catheter Health INFLATOR Merit Merit 1 EA4417 966765 065585 606628 15 BasVycon Medical (KB0628) SHEATH 6FR Terumo 1 VJN243 145666 771181 648186 40 [place] (GGR746) Clearwater Clearwater 1 45658Y 630278 623764009 625701 5 Verrata Plus pressure wire (19739G) GUIDE 6FR Cardinal 1 [id number] 322186 253073 543411 10 XBLAD 3.5 Health catheter (23396320) CARMINE RX 3.0 x Medtronic 1 [id number] 057317 4775371 310430 5 [id number] 26 stent ([id number]) CARMINE RX 3.5 x Medtronic 1 [id number] 542311 7446811 815262 5 [id number] 12 stent ([id number]) GUIDE 6FR AR Medtronic 1 [id number] 355169 70043 399844 1 2.0 catheter (ZX0ES06) EXOSEAL 6Fr Cardinal 1 EX600 993390 128796 250924 10 (EX600) Health TR BAND Terumo 1 [id number] 146991 162748 130104 40 Standard ([id number]) Signature Audit [place] Stage Time Signature Unsigned Intra-Procedure 10/19/2018 Mike Alarcon 10:09:30 AM RT(R) (CV) Signatures Monitor : Mike Alarcon RT Signature : Date : Time : [facility] [address] [place] [address]
[~2018-10-19 08:00] MED LIST changes: +GLUCOPHAGE1000 MG PO; +LEVOTHYROXINE100 MCG PO
[2018-10-19 08:06] VITALS: Ht 165.1 cm; Wt 110.0 kg
--- NOTE | 2018-10-19 08:25 | NUR ---
DR TEJEDA AT BS
[2018-10-19 08:33] LABS: BASOPHILS 0.3 % (0-2); EOSINOPHILS 4.7 % (0-7); HEMATOCRIT 33.5 % (36.0-48.0); HEMOGLOBIN 10.2 g/dL (12-16); IMMATURE GRANULOCYTES 0.1 % (0-5); LYMPHOCYTES 34.4 % (15-50); MCH 25.6 pg (26.0-34.0); MCHC 30.4 g/dL (31.0-37.0); MEAN PLATELET VOLUME 10.2 fL (7.4-10.4); MONOCYTES 11.6 % (2-11); NEUTROPHILS 48.9 % (40-80); PLATELET COUNT 357 10x3/uL (130-400); RBC 3.99 10x6/uL (4.00-5.40); RDW 16.1 % (11.5-14.5); WBC 7.1 10x3/uL (4.8-10.8)
[2018-10-19 08:34] VITALS: BP 157/60
[2018-10-19 08:44] LABS: CALC OSMOLALITY 288 mosm/kg (275-300); CALCIUM 8.7 mg/dL (8.5-10.1); CARBON DIOXIDE 29.6 mmol/L (21.0-32.0); CHLORIDE - SERUM 105 mmol/L (98-107); CREATININE - SERUM 0.7 mg/dL (0.6-1.3); POTASSIUM - SERUM 4.4 mmol/L (3.5-5.1); SODIUM 141 mmol/L (136-145); UREA NITROGEN 20 mg/dL (7-18); eGFR NON AFRICAN AMERICAN 87 mL/min (90-120)
[2018-10-19 08:46] LABS: GLUCOSE 183 mg/dL (74-106)
--- NOTE | 2018-10-19 08:50 | NUR ---
TRANSPORTED TO [facility] WITH [facility] CREW
--- NOTE | 2018-10-19 10:03 | CN ---
PATIENT NAME:JHON RAJAN MEDICAL RECORD: [id number] : 49 LOCATION:D. D.2118 ADMIT DATE: 10/19/18 ACCOUNT: [id number] CONSULTING PHYSICIAN: VENKAT TEJEDA MD REFERRING PHYSICIAN: VENKAT TEJEDA MD DATE OF CONSULTATION: 10/19/2018 DIAGNOSES: 1. Unstable angina class IV. 2. Coronary artery disease. 3. Previous multivessel percutaneous transluminal coronary angioplasty stent. 4. Hypertension. 5. Hyperlipidemia. 6. Insulin-dependent diabetes. HISTORY OF PRESENT ILLNESS: Ms. Rajan presents with unstable anginal symptomatology. She was seen in our office yesterday. Maximal medical therapy was increased. She is currently on calcium channel jefferson, beta-jefferson, CHERELLE inhibitor as well as nitrates. She continues to have chest pain, it has worsened overnight despite the increase in her Imdur. PHYSICAL EXAMINATION: GENERAL APPEARANCE: Well-nourished, well-developed, appears stated age. Level of distress, comfortable. PSYCHIATRIC: Mental status, alert, normal affect. Orientation, oriented to time, place and person. EYES: Lids and conjunctiva, noninjected. No discharge, no pallor. ENT: Lips, teeth, gums, normal dentition. Oropharynx, no cyanosis, no pallor. NECK: Carotid arteries, bilateral normal upstroke, no bruits, no thrills. JUGULAR VEINS: No jugular venous pressure or distention. CERVICAL LYMPH NODES: Nontender, nonenlarged. THYROID: Not enlarged. Nontender. No nodules. LUNGS: Respiratory effort, unlabored. CHEST: Normal curvature. No thoracic deformity. No chest wall tenderness. Percussion, resonant. Auscultation, clear. No wheezes, no rales, no rhonchi. CARDIOVASCULAR: Precordial exam, nondisplaced. No heaves or pericardial thrills. Rate and rhythm, regular. Heart sounds, normal S1, normal S2. No S3, no gallop, no rub. Systolic murmur, not heard. Diastolic murmur, not heard. EXTREMITIES: No cyanosis, no edema. Peripheral pulses, full and equal in all extremities, except as noted. No bruits appreciated. ABDOMEN: Soft, nondistended. Normal aorta. No bruit. Nontender. No masses. Liver, nontender, no hepatomegaly. Spleen, nontender, no splenomegaly. MUSCULOSKELETAL: No joint tenderness. No joint swelling. No erythema. NEUROLOGICAL: Normal gait, normal strength, normal tone. SKIN: Warm and dry. OVERALL IMPRESSION: Class IV unstable angina with maximal medical therapy, continued symptomatology. We will proceed with coronary angiography. Further care depends upon findings of the angiography. TRANSINT:[id number] Voice Confirmation ID: [id number] DOCUMENT ID: [id number] CONSULT REPORT [id number] JHON RAJAN, VENKAT WELLS at 1003 CC: [id number] DICTATION DATE: 10/19/18829 NEEDLE MAKER: 10/19/18 0928 ADM IN [facility] [address] [id number]
[2018-10-19] MEDS ORDERED: BAYER CHEWABLE81 MG PO (10:14)
--- NOTE | 2018-10-19 10:33 | NUR ---
1021 RECEIVED PT FROM WILDLIFE BIOLOGIST. PT DROWSY, DENIES ANY C/O CHEST PAIN OR NAUSEA. DRESSING CDI TO RIGHT GROIN, AREA IS SOFT AND NONTENDER. PEDAL PULSES 2+. TR BAND CDI TO RIGHT WRIST, WRIST IMMOBILIZER IN PLACE. HOB IS FLAT, PT INSTRUCTED TO KEEP HEAD FLAT TO PILLOW AND RIGHT LEG STRAIGHT.
--- NOTE | 2018-10-19 11:01 | NUR ---
PT SLEEPING, RESP WITH EASE. DRESSINGSX 2 ARE CDI, CAP REFILL IS BRISK. PULSES PALPABLE. HOB IS FLAT, NSR RATE 60, BP IS 146/60.
--- NOTE | 2018-10-19 11:34 | NUR ---
PT SLEEPING, RESP WITH EASE. VSS, HOB IS FLAT, DRESSING RIGHT GROIN AND TR BAND ARE CDI, CALL LIGHT IN REACH.
--- NOTE | 2018-10-19 12:07 | NUR ---
BRENNA PO FLUIDS WITH NO C/O NAUSEA. NSR, RATE 60, DENIES ANY C/O CHEST PAIN. DRESSING CDI TO RIGHT GROIN, TR BAND IS CDI. PULSES PALPABLE. HOB IS FLAT.
--- NOTE | 2018-10-19 13:14 | NUR ---
3 CC OF AIR WEANED FROM TR BAND WITH NO BLEEDING NOTED. FINGERS WARM AND CAP REFILL IS BRISK. DRESSING TO RIGHT GROIN IS CDI, PEDAL PULSES PALPABLE. PT DENIES ANY C/O. VSS. RESP WITH EASE.
--- NOTE | 2018-10-19 13:24 | NUR ---
3 CC OF AIR WEANED FROM TR BAND WITH NO BLEEDING NOTED. DRESSING RIGHT GROIN IS CDI, PEDAL PULSES PALPABLE. HOB FULLY ELEVATED.
--- NOTE | 2018-10-19 13:51 | NUR ---
ALL REMAINING AIR HAS BEEN WEANED FROM TR BAND WITH NO BLEEDING NOTED. DC INSTRUCTIONS HAVE BEEN REVIEWED WITH PT WHO VERBALIZES UNDERSTANDING. IV HAS BEEN DC'D WITH CATH INTACT. PT HAS AMBULATED TO THE BATHROOM AND VOIDED QS, DENIES ANY C/O.HAS TOLERATED SALAD FOR LUNCH.
--- NOTE | 2018-10-19 16:06 | NUR ---
1410 2X2 AND TEGADERM REMAIN CDI TO RIGHT WRIST, WITH NO BLEEDING OR HEMATOMA NOTED. FINGERS WARM, PULSES PALPABLE. PT DENIES ANY C/O NV DEFICIT. WRIST IMMOBILIZER IN PLACE. PT HAS ALL PERSONAL BELONGINGS AND DC INSTRUCTIONS. PT ESCORTED TO PRIVATE AUTO VIA WC BY NURSE WITH DRIVING HER HOME.
--- NOTE | 2018-10-22 18:38 | OP ---
PATIENT NAME: JHON RAJAN MEDICAL RECORD: [id number] :[birth year] LOCATION:[facility] ADMISSION DATE:10/19/18 SURGEON: VENKAT TEJEDA MD DATE OF OPERATION: 10/19/2018 PROCEDURES: 1. PTCA stent LAD. 2. IFR RCA PDA. 3. IFR RCA PLV. 4. IFR LAD. 5. Left heart catheterization. 6. Selective coronary angiography. 7. Left ventriculogram. INDICATION: Unstable angina and coronary artery disease. PROCEDURE IN DETAIL: After informed consent was obtained and after description of risks, benefits as well as alternative therapies, the patient elected to proceed with angiogram and angioplasty. The right femoral area was prepped and draped in normal sterile fashion. Right femoral artery was cannulated via modified Seldinger technique with placement of 6-Sri Lankan sheath. FINDINGS: The left ventriculogram was performed in standard 30-degree SHELDON view, reveals good cardiac wall motion throughout all segments. Overall ejection fraction estimated 60%. SELECTIVE CORONARY ANGIOGRAPHY: 1. Left main is with no significant angiographic disease. 2. Left anterior descending has previously placed stents. There is at least 70% in-stent restenosis. IFR is significantly abnormal in the LAD. 3. The left circumflex has mild irregularities, but no flow-limiting stenosis. Previously placed stent is widely patent. 4. The right coronary has previously placed stents, these are widely patent. There is a questionable stenosis of the PDA and PLV; however, IFR was a normal. PTCA STENT OF THE LAD: Stents used were 3.0 x 26 and 3.5 x 12, both Rico stents. Result was 0% residual stenosis. OVERALL IMPRESSION: Successful percutaneous transluminal angioplasty stent of the left anterior descending going from greater than 70% initial stenosis with abnormal IFR to 0% residual. TRANSINT:[id number] Voice Confirmation ID: [id number] DOCUMENT ID: [id number] VENKAT TEJEDA MD at 1838 CC: [id number] DICTATION DATE: 10/19/18 1003 HOSPITAL MEDICAL ASSISTANT: 10/19/18 1037 DIS IN 10/19/18 [facility] [address] [place] [address]
== END 2018-10-19 16:08 | disposition home or self-care (01) | DRG 247 ==
LOC: D.ER 08:00 → D.M2 09:14 → D.CLR 10:14
PROVIDERS: ADMIT Internal Medicine Interventional Cardiology; ATTEND Internal Medicine Interventional Cardiology
PROC: 4A023N7 Measurement of Cardiac Sampling and Pressure, Left Heart, Percutaneous Approach (ICD-10-PCS; 2018-10-19)
PROC: B2111ZZ Fluoroscopy of Multiple Coronary Arteries using Low Osmolar Contrast (ICD-10-PCS; 2018-10-19)
PROC: B2151ZZ Fluoroscopy of Left Heart using Low Osmolar Contrast (ICD-10-PCS; 2018-10-19)
PROC: 027035Z Dilation of Coronary Artery, One Artery with Two Drug-eluting Intraluminal Devices, Percutaneous Approach (ICD-10-PCS; principal; 2018-10-19 09:30)
PROC: 4A033BC Measurement of Arterial Pressure, Coronary, Percutaneous Approach (ICD-10-PCS; 2018-10-19 09:30)
DX: I25.110 Atherosclerotic heart disease of native coronary artery with unstable angina pectoris (principal); T82.855A Stenosis of coronary artery stent, initial encounter; I10 Essential (primary) hypertension; E78.5 Hyperlipidemia, unspecified; E11.9 Type 2 diabetes mellitus without complications; Z79.4 Long term (current) use of insulin; Y83.9 Surgical procedure, unspecified as the cause of abnormal reaction of the patient, or of later complication, without mention of misadventure at the time of the procedure

== ENCOUNTER 2018-11-20 13:37 | Inpatient (IN) | payer MEDICARE, BC ==
--- NOTE | ~2018-11-20 | HEMODYNAMI ---
PATIENT:JHON RAJAN MEDICAL RECORD: [id number] : 49 LOCATION:[facility] D.1212 ADMISSION DATE: 11/20/18 Generatedon:11/22/201811:12 Patient name: JHON RAJAN Patient #: [id number] SSN: [id number] : 1945 Date of study: 11/22/2018 Page: Of Hemodynamic Procedure Report Patient Data Patient Demographics Procedure consent was obtained First Name: JHON Gender: Female Last Name: MOHINI : 1945 Middle Initial: RAJI Age: 73 year(s) Patient #: [id number] Race: SSN: [id number] Additional ID: [id number] Contact details [address]: [address] [place] [address] State: [place] City: [place] Zip code: [address] Past Medical History History of disease Date Diagnosis Comments CAD CAD Hypertension Allergies: No known allergies Admission Admission Data Admission Date: 11/20/2018 Admission Time: 13:37 Room #: D.1212 Height (in.): 64.96 BSA: 2.15 (m2) Height (cm.): 165 BMI: 40.65 (kg/m2) Weight (lbs.): 244 Weight (kg.): 110.68 Lab Results Lab Result Date: 11/22/2018 Lab Result Time: 0:00 Biochemistry Name Units Result Min Max BUN mg/dl 10 --(-*--)-- 7 18 Creatinine mg/dl 0.7 --(*---)-- 0.6 1.3 eGFR ml/min 87 -*(----)-- 90 120 NONAFRICAN CBC Name Units Result Min Max Hematocrit % 34.2 *-(----)-- 42 54 Hemoglobin g/dl 10.5 *-(----)-- 13.5 17.5 Procedure Procedure Types Cath Procedure Diagnostic Procedure LHC LHC w/Coronaries Sedation Charges Moderate Sedation up to 15 minutes Procedure Description Procedure Date Procedure Date: 11/22/2018 Procedure Start Time: 10:49 Procedure End Time: 11:09 Procedure Staff Name Function Alfonso Covington MD Performing Physician Blas Richard RT Scrub Clara Andrews RN Nurse Kiersten Flores RT Monitor Procedure Data Cath Procedure Fluoroscopy Diagnostic fluoroscopy Total fluoroscopy Time: 2.3 time: 2.3 min min Diagnostic fluoroscopy Total fluoroscopy dose: 813 dose: 813 mGy mGy Contrast Material Contrast Material Type Amount (ml) Isovue 300 65 Entry Location Entry Primary Successful Side Size Upsize Upsize Entry Closure Succes sful Closure Location (Fr) 1 (Fr) 2 (Fr) Remarks Device Remarks Femoral Left 5 Fr Exoseal artery Estimated blood loss: 5 ml Diagnostic catheters Device Type Used For End Catheter Placement MULTIPACK JL 4.0 5Fr Procedure catheter MULTIPACK 3DRC 5Fr Procedure catheter MULTIPACK Pigtail 5 Fr Procedure catheter Procedure Complications No complications Procedure Medications Medication Administration Route Dosage 0.9% NaCl I.V. 100 ml/hr Oxygen etCO2 Nasal cannula 2 l/min Lidocaine 2% added to field 20 Heparin Flush Bag added to field 2 bags (1000units/500ml NS) Versed I.V. 2 mg Fentanyl I.V. 50 mcg Fentanyl I.V. 50 mcg Hemodynamics Rest BSA: 2.15 (m2) HGB: 10.5 (g/dl) O2 Consumption: Estimated: 192.55 (ml/min) O2 Co nsumption indexed: Estimated:89.56 (ml/min/m) Heart Rate: 64 (bpm) Pressure Samples Time Site Value (mmHg) Purpose Heart Use Rate(bpm) 11:05 LV 182/4,21 Snapshot 72 11:05 AO 178/76(116) Pullback 71 11:05 LV 187/6,23 Pullback 71 Gradients Valve Time Site 1 Site 2 Mean SEP/DFP Peak To Heart Use (mmHg) (sec/min) Peak Rate (mmHg) (bpm) Aortic 11:05 LV AO 10 22 9 71 187/6,23 178/76(116) Calculations Valve P-P Mean Valve Index Valve Source Name Gradient Area Flow (cm2) Aortic 9 10 9 10 Snapshots Pre Cath Intra NCS Post Cath Vital Signs Time Heart Resp SPO2 etCO2 NIBP (mmHg) Rhythm Pain Sedation Rate (ipm) (%) (mmHg) Status Level (bpm) 10:35:02 64 15 97 36 Measuring NSR 0 (11) 10(A) , No pain 10:35:09 63 18 98 41.3 145/66(112) NSR 0 (11) 10(A) , No pain 10:39:55 67 11 97 29 135/79(105) NSR 0 (11) 10(A) , No pain 10:44:38 69 13 98 12 153/74(124) NSR 0 (11) 10(A) , No pain 10:49:37 69 14 96 27.7 Measuring NSR 0 (11) 10(A) , No pain 10:58:52 69 13 98 16.5 178/90(138) NSR 0 (11) 9(A) , No pain 11:03:24 71 10 98 35.3 120/93(97) NSR 0 (11) 9(A) , No pain 11:08:23 70 13 98 36.8 Measuring NSR 0 (11) 10(A) , No pain 11:08:48 71 12 98 24.7 186/95(129) NSR 0 (11) 10(A) , No pain Medications Time Medication Route Dose Verified Delivered Reason Notes Eff ectiveness by by 10:33:24 0.9% NaCl I.V. 100 Alfonso Clara used for ml/hr Adria Andrews road roller engineer 10:33:30 Oxygen etCO2 2 Alfonso Clara used for Nasal l/min Adria Andrews procedure cannula RN 10:33:38 Lidocaine 2% added 20ml Alfonso Alfonso for local to vial Adria Covington MD anesthetic field 10:33:39 Heparin Flush added 2 Alfonso Alfonso used for Bag to bags Adria Covington MD procedure (1000units/500ml field NS) 10:44:06 Fentanyl I.V. 50 Alfonso Clara for mcg Adria Andrews sedation RN 10:44:56 Versed I.V. 2 mg Alfonso Clara for Adria Andrews sedation RN 10:49:16 Fentanyl I.V. 50 Alfonso Clara for mcg Adria Andrews sedation manufacturing lead Log Time Note 9:42:29 Informed consent obtained and on chart 9:50:22 Time tracking: Regular hours (M-F 7:00 - 5:00) 9:50:26 Plan of Care:Hemodynamics will remain stable., Cardiac rhythm will remain stable., Comfort level will be maintained., Respiratory function will remain adequate., Patient/ family verbilizes understanding of procedure., Procedure tolerated without complication., Recovers from procedure without complications.. 10:11:18 Kiersten Flores RT(R) sent for patient. Start room use. 10:28:24 Patient received from Other to CCL 2 Alert and oriented. Tansferred to table in Supine position. 10:33:13 Vital chart was started 10:33:14 Warm blankets applied, and garrett hugger turned on for patient comfort. 10:33:15 Correct patient and procedure confirmed by team. 10:33:15 ECG and BP/O2 sat monitors applied to patient. 10:33:17 Baseline sample Acquired. 10:33:20 Rhythm: sinus rhythm 10:33:22 Full Disclosure recording started 10:33:24 0.9% NaCl 100 ml/hr I.V. was administered by Clraa Andrews RN; used for procedure; 10:33:30 Oxygen 2 l/min etCO2 Nasal cannula was administered by Clara Andrews RN; used for procedure; 10:33:30 H&P Date Dictated: 11/20/2018 Within 30 days and on chart.. 10:33:31 Pre-procedure instructions explained to patient. 10:33:31 Pre-op teaching completed and patient verbalized understanding. 10:33:32 Family in patients room. 10:33:33 Patient NPO since Midnight. 10:33:38 Lidocaine 2% 20ml vial added to field was administered by Alfonso Covington MD; for local anesthetic; 10:33:39 Heparin Flush Bag (1000units/500ml NS) 2 bags added to field was administered by Alfonso Covington MD; used for procedure; 10:33:40 Patient allergic to No known allergies 10:33:42 Is patient on blood thinner?Yes 10:33:45 ACC The patient was administered the following blood thiners within the last 24 hours: ACCPlavix 10:33:46 Patient diabetic? Yes. 10:33:47 If diabetic: On Metformin? Yes 10:33:49 If on Metformin: Last Dose? 11/20/2018 10:33:52 Previous problem with sedation/anesthesia? No ? 10:33:52 Snore? Yes 10:33:54 Sleep apnea? No 10:33:55 Deviated septum? No 10:33:55 Opens mouth fully? Yes 10:33:56 Sticks out tongue? Yes 10:33:58 Airway obstruction? No ? 10:34:00 Dentures? No ? 10:34:02 Pre procedure: right dorsailis pedis pulse 1+ Palpable, but thready & weak; easily obliterated 10:34:08 Patient pain scale 1/10 ?. 10:34:17 IV patent on arrival in left forearm with 0.9% NaCl at [facility] 10:34:52 Lab Result : Creatinine 0.7 mg/dl 10:34:52 Lab Result : BUN 10 mg/dl 10:34:52 Lab Result : eGFR NONAFRICAN 87 ml/min 10:34:53 Lab Result : Hemoglobin 10.5 g/dl 10:34:53 Lab Result : Hematocrit 34.2 % 10:34:55 Lab results completed and on chart. 10:34:59 Right groin area was prepped with chlora-prep and draped in sterile fashion 10:35:00 Alarms reviewed by R. N. 10:35:00 Sharps counted by scrub and verified by R.N. 10:36:30 Patient Weight : 244 lbs 10:36:33 Patient Height : 64.96 inches 10:43:29 --------ALL STOP TIME OUT------ 10:43:30 Final Timeout: patient, procedure, and site verified with staff and physician. All members of the team are in agreement. 10:43:32 Right groin site verified by team. 10:43:35 Fire Safety Assessment: A--An alcohol-based skin anteseptic being used preoperatively., C--Open oxygen or nitrous oxide is being used., D--An ESU, laser, or fiber-optic light is being used. 10:43:39 Physical assessment completed. ASA score P 2 - A patient with mild systemic disease as per Alfonso Covington MD. 10:44:06 Fentanyl 50 mcg I.V. was administered by Clara Andrews RN; for sedation; 10:44:10 2) 60-89 Mildly reduced kidney function, and other findings (as for stage 1) point to kidney disease. 10:44:13 Maximum allowable contrast dose (3.7 X eGFR X 0.75)228 ml. 10:44:16 Sedation plan: IV Moderate Sedation Medication:Versed, Fentanyl 10:44:23 Use device set Femoral Dx 10:44:24 ACIST Syringe (35257) opened to sterile field. 10:44:24 Bag Decanter (2001S) opened to sterile field. 10:44:26 ACIST Hand Control (86378) opened to sterile field. 10:44:26 ACIST Manifold (60547) opened to sterile field. 10:44:27 Tegaderm 4 x 4 (1626W) opened to sterile field. 10:44:28 Medline Cath Pack ([id number]) opened to sterile field. 10:44:29 DIAGNOSTIC Multipack 5Fr catheter set (XG4484) opened to sterile field. 10:44:30 SHEATH 5FR [place] (FKH106) opened to sterile field. 10:44:31 EMERALD Guide Wire (734-226) opened to sterile field. 10:44:56 Versed 2 mg I.V. was administered by Clara Andrews RN; for sedation; 10:49:16 Fentanyl 50 mcg I.V. was administered by Clara Andrews RN; for sedation; 10:49:42 Procedure started. 10:49:44 Zero performed for pressure channel P1 10:49:56 Local anesthetic to right femoral artery with Lidocaine 2% by Alfonso Covington MD.INITIAL ACCESS ONLY 10:56:53 UNABLE TO CANNULATE RIGHT GROIN 10:57:07 Local anesthetic to left femerol artery with Lidocaine 2% by Alfonso Covington MD.ADDITIONAL ACCESS 10:58:16 A 5 Fr sheath was inserted into the Left Femoral artery 10:58:20 Zero performed for pressure channel P1 10:59:13 A MULTIPACK JL 4.0 5Fr catheter was advanced over the wire and used for Procedure. 11:01:04 LCA angiography performed. 11:01:07 Catheter exchanged over wire. 11:01:39 A MULTIPACK 3DRC 5Fr catheter was advanced over the wire and used for Procedure. 11:03:32 RCA angiography performed. 11:03:36 Catheter exchanged over wire. 11:03:43 A MULTIPACK Pigtail 5 Fr catheter was advanced over the wire and used for Procedure. 11:04:43 LV gram done using SHELDON 11:04:46 Injector settings: Ml/sec: 10, Volume: 20, 11:05:19 LV hemodynamics recorded. 11:05:30 EF : 60 % 11:06:19 Catheter removed. 11:06:28 EXOSEAL 5Fr (EX500) opened to sterile field. 11:06:45 Sheath removed intact; hemostasis achieved with Exoseal to the Left Femoral artery. 11:07:43 Procedure ended.(Physican Out) 11:07:52 Fluoroscopy time 02.30 minutes. 11::58 Fluoroscopy dose: 813 mGy 11:07:58 Flurop Dose total: 813 11:08:04 Dose Area Product 38543 mGy/cm. 11:08:07 Contrast amount:Isovue 300 65ml. 11:08:09 Maximum allowable dose exceeded? No. 11:08:10 Sharps counted by scrub and verified by R.N. 11:08:13 Post-op/insertion site Left Femoral artery dressed using a 4 x 4 and Tegaderm. 11:08:15 Post-procedure physical assessment completed. ASA score P 2 - A patient with mild systemic disease as per Alfonso Covington MD. 11:08:18 Post procedure rhythm: sinus rhythm 11:08:24 Estimated blood loss: 5 ml 11:08:25 Post procedure instruction explained to patient.Patient verbalizes understanding. 11:08:25 Patient needs reinforcement of post procedure teaching. 11:08:43 Procedure type changed to Cath procedure, Diagnostic procedure, LHC, LHC w/Coronaries, Sedation Charges, Moderate Sedation up to 15 minutes 11:08:59 Procedure and supply charges have been captured, reviewed, submitted and are correct. 11:09:04 Procedure Complication : No complications 11:09:06 Vital chart was stopped 11:09:12 Report given to [facility] 3. 11:09:30 Patient transfered to [facility] with Bed. 11:09:42 Procedure ended. 11::42 Full Disclosure recording stopped 11:09:48 End room use (Document Last) Device Usage Item Name Manufacture Quantity Catalog Hospital Part Current Minimal L ot# / Number Charge Number Stock Stock Serial# Code ACIST Acist 1 24406 708033 219213 826176 20 Syringe GuideSpark (83568) Systems Inc Bag Microtek 1 331214 53211 780910 5 Decanter Medical Inc. () ACIST Hand Acist 1 51263 985938 943588 149586 5 Control Medical (26283) Systems Inc ACIST Acist 1 40363 692348 597049 032872 5 Manifold Medical (04874) Systems Inc Tegaderm 4 3M 1 1626W 630779 200465 753451 5 x 4 (1626W) Medline Medline 1 [id number] 375902 20800 697534 5 Cath Pack ([id number]) DIAGNOSTIC Cardinal 1 WP7939 948324 94540 348522 30 MultipHithru 5Fr catheter set (JQ6709) SHEATH 5FR Terumo 1 MCY854 387833 398051 060240 5 [place] (PDJ976) EMERALD Cardinal 1 785-734 647556 983869 330883 5 Guide Wire Health (904-491) MULTIPACK Cardinal 1 290809 5 JL 4.0 5Fr Health catheter MULTIPACK Cardinal 1 337088 5 3DRC 5Fr Health catheter MULTIPACK Cardinal 1 762000 5 Pigtail 5 Health Fr catheter EXOSEAL 5Fr Cardinal 1 EX500 469472 736492 443890 10 (EX500) Health Signature Audit [place] Stage Time Signature Unsigned Intra-Procedure 11/22/2018 Kiersten Flores 11:12:28 AM RT(R) Signatures Performing Physician : Signature : Alfonso Covington MD Date : Time : Nurse : Clara Andrews RN Signature : Date : Time : Monitor : Kiersten Flores Signature : RT Date : Time : [place] [address] [place] [address]
--- NOTE | 2018-11-20 14:28 | NUR ---
PT ARRIVED HERE FROM ADMISSIONS VIA WHEELCHAIR. PT ALERT AND ABLE TO ANSWER ALL QUESTIONS. DENIES ANY NEEDS AT THIS TIME. WILL CONT TO FOLLOW POC
[2018-11-20 15:06] VITALS: BP 130/60
[2018-11-20 15:55] LABS: BASOPHILS 0.2 % (0-2); EOSINOPHILS 4.5 % (0-7); HEMATOCRIT 33.4 % (36.0-48.0); HEMOGLOBIN 10.3 g/dL (12-16); IMMATURE GRANULOCYTES 0.2 % (0-5); LYMPHOCYTES 35.1 % (15-50); MCH 25.5 pg (26.0-34.0); MCHC 30.8 g/dL (31.0-37.0); MCV 82.7 fL (80.0-100.0); MEAN PLATELET VOLUME 9.8 fL (7.4-10.4); MONOCYTES 11.3 % (2-11); NEUTROPHILS 48.7 % (40-80); PLATELET COUNT 306 10x3/uL (130-400); RBC 4.04 10x6/uL (4.00-5.40); WBC 8.4 10x3/uL (4.8-10.8)
[2018-11-20 16:41] LABS: ALBUMIN 3.4 g/dL (3.4-5.0); ALKALINE PHOSPHATASE 45 U/L (46-116); ALT (SGPT) 25 U/L (10-68); BILIRUBIN - TOTAL 0.15 mg/dL (0.2-1.3); CALC OSMOLALITY 291 mosm/kg (275-300); CALCIUM 8.7 mg/dL (8.5-10.1); CARBON DIOXIDE 28.5 mmol/L (21.0-32.0); CHLORIDE - SERUM 105 mmol/L (98-107); CKMB 1.5 U/L (0.0-3.6); CREATINE KINASE 79 UL (21-215); CREATININE - SERUM 0.7 mg/dL (0.6-1.3); GLUCOSE 170 mg/dL (74-106); PRO BNP 349 pg/mL (0-125); PROTEIN - SERUM 6.5 g/dL (6.4-8.2); SODIUM 145 mmol/L (136-145); THYROID STIMULATING HORMONE 5.81 uIU/mL (0.36-3.74); UREA NITROGEN 10 mg/dL (7-18); eGFR NON AFRICAN AMERICAN 87 mL/min (90-120)
[2018-11-20 16:51] LABS: TROPONIN-I < 0.017 ng/mL (0.000-0.060)
--- NOTE | 2018-11-20 17:57 | NUR ---
HERE TO SEE PT. TOLD NURSE THAT PT CAN BE ON A REGULAR DIET UNTIL MIDNIGHT. TOMORROW HE WILL PERFORM AN EGD ON PT. ONE TIME STONEY STARK FOR SUPPER SENT TO CAF.
--- NOTE | 2018-11-20 19:30 | NUR ---
EVENING ROUNDS COMPLET, PT LAYING IN BED. A&O X4, PT DENIES ANY PAIN OR NEEDS AT THIS TIME. INSTRUCTED PT ABOUT NEED FOR URINE AND TO VOID IN THE PROVIDED HAT. PT VOICED UNDERSTANDING. CL IN REACH, BED IN LOWEST POSITION. CONT WITH POC.
[2018-11-20 19:57] LABS: APPEARANCE CLEAR (CLEAR); BILIRUBIN NEGATIVE (NEGATIVE); COLOR YELLOW (YELLOW); GLUCOSE 50 mg/dL (NEGATIVE); KETONE NEGATIVE (NEGATIVE); NITRITE NEGATIVE (NEGATIVE); PROTEIN NEGATIVE (NEGATIVE); SPECIFIC GRAVITY 1.015 (1.005-1.020); UROBILINOGEN NORMAL (NORMAL)
[2018-11-20 19:58] LABS: EPITHELIAL CELLS 0-5 /hpf (0-5); RED CELLS - URINE OCC /hpf (0-5); WHITE CELLS - URINE 0-5 /hpf (0-5)
[2018-11-20 20:23] VITALS: BP 136/59
[2018-11-21 06:55] LABS: BASOPHILS 0.3 % (0-2); EOSINOPHILS 4.9 % (0-7); HEMATOCRIT 34.2 % (36.0-48.0); HEMOGLOBIN 10.5 g/dL (12-16); IMMATURE GRANULOCYTES 0.1 % (0-5); LYMPHOCYTES 32.7 % (15-50); MCH 25.4 pg (26.0-34.0); MCHC 30.7 g/dL (31.0-37.0); MCV 82.8 fL (80.0-100.0); MEAN PLATELET VOLUME 9.9 fL (7.4-10.4); MONOCYTES 12.2 % (2-11); NEUTROPHILS 49.8 % (40-80); PLATELET COUNT 321 10x3/uL (130-400); RBC 4.13 10x6/uL (4.00-5.40); RDW 16.5 % (11.5-14.5); WBC 7.7 10x3/uL (4.8-10.8)
[2018-11-21 07:08] LABS: IRON 30 ug/dl (35-150)
[2018-11-21 07:30] LABS: CALC OSMOLALITY 293 mosm/kg (275-300); CALCIUM 8.7 mg/dL (8.5-10.1); CARBON DIOXIDE 30.4 mmol/L (21.0-32.0); CHLORIDE - SERUM 107 mmol/L (98-107); CREATININE - SERUM 0.7 mg/dL (0.6-1.3); FERRITIN 7 ng/mL (3-244); GLUCOSE 208 mg/dL (74-106); MAGNESIUM - SERUM 1.5 mg/dL (1.8-2.4); SODIUM 145 mmol/L (136-145); UREA NITROGEN 10 mg/dL (7-18); eGFR NON AFRICAN AMERICAN 87 mL/min (90-120)
--- NOTE | 2018-11-21 07:54 | NUR ---
ROUNDING DONE WITH PATIENT BEING NPO FOR PROCEDURE TODAY. LEFT HAND PIV SEEN WITH SALINE LOCK. ON ROOM AIR. PATIENT IS SUPPOSE TO BE ON HEART MONITOR, THERE ARE NONE AVAIABLE.
[2018-11-21 08:11] VITALS: BP 172/88
[2018-11-21 09:04] LABS: % SATURATION 6 % (15-55); TOTAL IRON BIND CAPACITY 450 ug/dl (260-445); UNSAT IRON BIND CAPACITY 420 ug/dl (150-375)
--- NOTE | 2018-11-21 09:31 | NUR ---
R.T. HERE FOR SERIAL EKG
[2018-11-21 09:53] VITALS: Ht 165.1 cm
--- NOTE | 2018-11-21 10:28 | NUR ---
PLACED ON HEART MONITOR, SR, HR 69
[2018-11-21 12:21] VITALS: BP 147/66
[2018-11-21 12:43] LABS: CREATINE KINASE 70 UL (21-215); TROPONIN-I < 0.017 ng/mL (0.000-0.060)
--- NOTE | 2018-11-21 12:56 | NUR ---
TO GI LAB VIA BED.
--- NOTE | 2018-11-21 14:03 | NUR ---
1356-RETURNS FROM GI LAB. WILL HOLD NPO ULTRASOUND GALLBLADDER HAS BEEN ORDERED. PATIENT IS NOT HAPPY ABOUT THIS. I TOLD HER SHE COULD EAT AND DRINK AND WE CAN DO THE ULTRASOUND TOMORROW. PATIENT STATES SHE WILL HOLD HERSLEF NPO.
--- NOTE | 2018-11-21 14:52 | NUR ---
ULTRASOUND HERE AT THIS TIME AT BEDSIDE.
--- NOTE | 2018-11-21 15:27 | NUR ---
DR JIN IN TO SEE PATIENT.
--- NOTE | 2018-11-21 15:41 | NUR ---
I CALLED SHARON IN R.T TO SEE IF THE SERIAL EKG WILL FLAG THEM. SHE STATES THAT SHE IS IN THE UNIT AND WILL COME SOON SHE CAN.
[2018-11-21 15:46] VITALS: BP 143/73
--- NOTE | 2018-11-21 16:06 | NUR ---
1604-OP PERMIT FOR HEART CATH SIGNED AND WITNESSED. PATIENT IS MADE AWARE OF NPO PAST MIDNIGHT STATUS.
[2018-11-21 20:31] VITALS: BP 173/51
--- NOTE | 2018-11-21 21:00 | NUR ---
PT REFUSES SCD'S AT THIS TIME. CONT WITH POC.
[2018-11-21 21:32] LABS: CKMB 1.1 U/L (0.0-3.6); CREATINE KINASE 88 UL (21-215); TROPONIN-I < 0.017 ng/mL (0.000-0.060)
[2018-11-22 06:16] VITALS: BP 163/67
[2018-11-22 06:23] LABS: BASOPHILS 0.3 % (0-2); HEMATOCRIT 34.2 % (36.0-48.0); HEMOGLOBIN 10.5 g/dL (12-16); IMMATURE GRANULOCYTES 0.1 % (0-5); LYMPHOCYTES 34.6 % (15-50); MCH 25.4 pg (26.0-34.0); MCHC 30.7 g/dL (31.0-37.0); MCV 82.6 fL (80.0-100.0); MEAN PLATELET VOLUME 10.3 fL (7.4-10.4); MONOCYTES 12.9 % (2-11); NEUTROPHILS 48.1 % (40-80); PLATELET COUNT 322 10x3/uL (130-400); RBC 4.14 10x6/uL (4.00-5.40); RDW 16.3 % (11.5-14.5); WBC 6.8 10x3/uL (4.8-10.8)
[2018-11-22 06:56] LABS: CALC OSMOLALITY 285 mosm/kg (275-300); CALCIUM 8.7 mg/dL (8.5-10.1); CARBON DIOXIDE 30.2 mmol/L (21.0-32.0); CHLORIDE - SERUM 103 mmol/L (98-107); CKMB 0.8 U/L (0.0-3.6); CREATINE KINASE 85 UL (21-215); CREATININE - SERUM 0.6 mg/dL (0.6-1.3); GLUCOSE 239 mg/dL (74-106); MAGNESIUM - SERUM 1.6 mg/dL (1.8-2.4); POTASSIUM - SERUM 4.3 mmol/L (3.5-5.1); SODIUM 140 mmol/L (136-145); TROPONIN-I < 0.017 ng/mL (0.000-0.060); UREA NITROGEN 9 mg/dL (7-18); eGFR NON AFRICAN AMERICAN > 90 mL/min (90-120)
--- NOTE | 2018-11-22 07:19 | NUR ---
ROUNDING DONE WITH PATIENT BEING NPO FOR HEART CATH TODAY. HAS HIBICLENS AND CLEAN LINENS DONE LAST SHIFT. LEFT HAND SALINE LOCK. ON HEART MONITOR SHOWING SR, HR 72. ON ROOM AIR. DISTENDED ABDOMEN, DENIES ANY CHEST PAIN OR JAW DISCOMFORT. WILL MONITOR.
[2018-11-22 08:29] VITALS: BP 165/66
--- NOTE | 2018-11-22 09:01 | NUR ---
CALL FROM BIOMEDICAL ENGINEERING TECHNOLOGIST FOR PRE-OP. TOLD ESTELA IN BIOMEDICAL ENGINEERING TECHNOLOGIST I NEEDED ORDERES.
--- NOTE | 2018-11-22 09:18 | NUR ---
JUAN CARLOS PALMER IN IT PROGRAM MANAGER, MILEY CHAMP[place] ONLY.
--- NOTE | 2018-11-22 10:16 | NUR ---
TO VOLCANOLOGY TEACHER
--- NOTE | 2018-11-22 11:30 | NUR ---
RETURNS FROM MAIL SORTER VIA BED. DRESSING C/D/I TO LEFT GROIN. NO HEMATOMA FELT. SOFT TO PALPATE, PPP AND STRONG. TO LAY FLAT X 2 HOURS. FAMILY AT BEDSIDE.
--- NOTE | 2018-11-22 14:10 | NUR ---
ASSSITEDF PATIENT TO RESTROOM.
--- NOTE | 2018-11-22 14:28 | NUR ---
CALLED INTO ROOM WITH PATIENT REQUESTING A VALIUM. I WENT AND PULLED IT AND WENT TO GIVE AND SHE IS ASLEEP. RETURNED THE VAlIUM.
[2018-11-22 16:02] VITALS: BP 150/78
--- NOTE | 2018-11-22 16:57 | NUR ---
DENIES NEEDS AT THIS TIME. STATES THAT VALIUM AND TYLENOL HAVE HELPED. SITTING UP IN THE BED EATING SUPPER. LEFT GROIN DRESSING IS C/D/I. SOFT TO PALPATE, PPP AND STRONG.
--- NOTE | 2018-11-22 18:04 | NUR ---
CALLED INTO ROOM WITH PATIENT ASKING ME "ABOUT THE INFLAMMATION AROUND OR IN MY HEART THAT DR TAY TOLD ME I HAD". I TOLD HER THAT I WAS IN THE ROOM WHEN DR JIN MADE ROUNDS (PTS LEFT TO GO GET SCHOOL SUPPLIES AT [employer]) AND THAT I DID NOT HEAR HIM SAY ANYTHING ABOUT THAT NOR IS IT IN HIS NOTES. I TOLD HER THAT IF HE DID SAY THAT HE WOULD BE TREATING IT OR CONSULTING A CARDIOVASCULAR SURGERON.
--- NOTE | 2018-11-22 19:20 | NUR ---
EVENING ROUNDS COMPLETE, PT LAYING IN BED. PT DENIES ANY PAIN OR NEEDS AT THIS TIME. VSS, PEDAL PULSE +2 BILAT. CL IN REACH, BED IN LOWEST POSITION. CONT WITH POC.
[2018-11-22 21:02] VITALS: BP 156/66
[2018-11-23 08:28] LABS: BASOPHILS 0.1 % (0-2); EOSINOPHILS 3.4 % (0-7); HEMATOCRIT 32.9 % (36.0-48.0); IMMATURE GRANULOCYTES 0.3 % (0-5); MCH 25.1 pg (26.0-34.0); MCHC 30.4 g/dL (31.0-37.0); MCV 82.7 fL (80.0-100.0); MEAN PLATELET VOLUME 9.8 fL (7.4-10.4); MONOCYTES 10.8 % (2-11); NEUTROPHILS 55.4 % (40-80); PLATELET COUNT 302 10x3/uL (130-400); RBC 3.98 10x6/uL (4.00-5.40); RDW 16.1 % (11.5-14.5)
--- NOTE | 2018-11-23 08:28 | NUR ---
PT HAS BEEN NPO THROUGH NIGHT. PT HAD STATED THAT SHE WANTED TO SPEAK TO THE DR ABOUT CANCELLING GASTRIC SCAN. SHAR SPOKE WITH PT AND SCAN CANCELLED AND CT ORDERED. WCRAFAEL.
[2018-11-23 08:45] LABS: CALC OSMOLALITY 287 mosm/kg (275-300); CALCIUM 8.3 mg/dL (8.5-10.1); CARBON DIOXIDE 28.2 mmol/L (21.0-32.0); CHLORIDE - SERUM 105 mmol/L (98-107); CREATININE - SERUM 0.5 mg/dL (0.6-1.3); GLUCOSE 231 mg/dL (74-106); MAGNESIUM - SERUM 1.5 mg/dL (1.8-2.4); SODIUM 142 mmol/L (136-145); UREA NITROGEN 7 mg/dL (7-18); eGFR NON AFRICAN AMERICAN > 90 mL/min (90-120)
[2018-11-23 08:46] LABS: POTASSIUM - SERUM 4.4 mmol/L (3.5-5.1)
[2018-11-23 08:51] VITALS: BP 149/55
--- NOTE | 2018-11-23 09:32 | NUR ---
NUTRITION F//U PT CURRENTLY NPO FOR GES. TOLERATING DIABETIC DIET PRIOR TO NPO STATUS. WILL PROVIDE DIABETIC DIET WHEN RESUMED, MONITOR PO INTAKE. RD FOLLOWING
[2018-11-23 12:01] VITALS: BP 136/63
[2018-11-23] MEDS ORDERED: FLAGYL500 MG PO (13:02)
[2018-11-23] MEDS ORDERED: LEVAQUIN750 MG PO (13:02)
--- NOTE | 2018-11-23 14:32 | MORECARE ---
CASE MANAGEMENT DISCHARGE SUMMARY PATIENT: JHON RAJAN UNIT: [id number] ADM DATE: 11/20/18 AGE: 73 : [birth year] SEX: F ROOM/BED: D.1212 AUTHOR: MINOO SCHUMACHER PHYSICIAN: REFERRING PHYSICIAN: YOANA SANDERS DO DATE OF SERVICE: 11/23/18 Discharge Plan Patient Name: JHON RAJAN [facility] [facility] 1945 Planned Disposition: Home Anticipated Discharge Date: 11/23/18 Discharge Date: Expected LOS: 3 Initial Reviewer: [email or web address] Initial Review Date: 11/20/2018 Generated: 11/23/18 3:32 pm Patient Name: JHON RAJAN Page [phone] at 1432 All edits/amendments must be made on the electronic document DICTATION DATE: 11/23/18 1432 LIBRARY HISTORIAN: EUNICE 11/23/18 1432 RPT#: [id number] DC DATE: STATUS: ADM IN [facility] [address] [place] [address] END OF REPORT
--- NOTE | 2018-11-23 14:38 | NUR ---
PT DISCHARGED HOME WITH SPOUSE. ESCORTED OUT BY STAFF VIA WHEELCHAIR.
--- NOTE | 2018-11-23 14:42 | MORECARE ---
CASE MANAGEMENT DISCHARGE SUMMARY PATIENT: JHON RAJAN UNIT: [id number] ADM DATE: 11/20/18 AGE: 73 : 47 SEX: F ROOM/BED: D.1212 AUTHOR: MINOO SCHUMACHER PHYSICIAN: REFERRING PHYSICIAN: YOANA SANDERS DO DATE OF SERVICE: 11/23/18 Discharge Plan Patient Name: JHON RAJAN [facility] [facility] 1945 Planned Disposition: Home Anticipated Discharge Date: 11/23/18 Discharge Date: 11/23/2018 Expected LOS: 3 Initial Reviewer: [email or web address] Initial Review Date: 11/20/2018 Generated: 11/23/18 3:42 pm Last DP export: 11/23/18 1:32 p Patient Name: JHON RAJAN Page [phone] at 1442 All edits/amendments must be made on the electronic document DICTATION DATE: 11/23/181 FENDER MECHANIC: EUNICE 11/23/18 1441 RPT#: [id number] DC DATE:11/23/18 STATUS: DIS IN [facility] [address] [place] [address] END OF REPORT
--- NOTE | 2018-11-23 14:58 | MORECARE ---
CASE MANAGEMENT DISCHARGE SUMMARY PATIENT: JHON RAJAN UNIT: [id number] ADM DATE: 11/20/18 AGE: 73 : 47 SEX: F ROOM/BED: D.1212 AUTHOR: ENDY,DOC PHYSICIAN: REFERRING PHYSICIAN: YOANA SANDERS DO DATE OF SERVICE: 11/23/18 Discharge Plan Patient Name: JHON RAJAN Facility: [facility]:[place] : 1945 Planned Disposition: Home Anticipated Discharge Date: 11/23/18 Discharge Date: 11/23/2018 Expected LOS: 3 Initial Reviewer: [email or web address] Initial Review Date: 11/20/2018 Generated: 11/23/18 3:58 pm DCPIA - Discharge Planning Initial Assessment Updated by [email or web address]: Kiki Bravo on 11/23/18 2:53 pm * Is the patient Alert and Oriented? Yes * PCP DR MARILYN NGUYỄN, [place] * Pharmacy [facility] * Preadmission Environment Home with Family * ADLs Independent * Equipment Cane * Other Equipment RAISED TOILET SEAT * List name and contact numbers for known caregivers / representatives who currently or will assist patient after discharge: ARNAUD RAJAN- [facility]- [phone] * Verbal permission to speak to the caregivers and representatives has been obtained from the patient. Yes * Community resources currently utilized None * Please name any agencies selected above. N/A * Additional services required to return to the preadmission environment? No * Can the patient safely return to the preadmission environment? Yes * Has this patient been hospitalized within the prior 30 days at any hospital? Yes Coverage Notice Reviewer: [email or web address] - Kiki Bravo Notice Issued Date-Time: 11/23/2018 14:00 Notice Type: IM Discharge Notice Notice Delivered To: Patient Relationship to Patient: Self Certified Medical Asst Name: Delivery Method: HAND - Hand Delivered Margarita Days: Prior Verbal Notification: Recipient Understood Notice: Yes Recipient Signature: Yes Med Rec Note Co-signed by Attending: Coverage Notice Comment: CM EXPLAINED DISCHARGE IMM. PATIENT HAD NO QUESTIONS . STATES SHE FEELS THE SAME WHEN SHE WAS ADMITTED. WANTS TO FOLLOW UP WITH DR SANDERS, HER PCP. SHE SIGNED DISCHARGE IMM, ORIGINAL TO THE PATIENT AND ORIGINAL TO THE CHART. Last DP export: 11/23/18 1:42 p Patient Name: JHON RAJAN Page [phone] at 1458 All edits/amendments must be made on the electronic document DICTATION DATE: 11/23/180 FINAL EXPENSE AGENT: EUNICE 11/23/18 1458 RPT#: [id number] DC DATE:11/23/18 STATUS: DIS IN [facility] [address] [place] [address] END OF REPORT
--- NOTE | 2018-11-23 15:19 | MORECARE ---
CASE MANAGEMENT DISCHARGE SUMMARY PATIENT: JHON RAJAN UNIT: [id number] ADM DATE: 11/20/18 AGE: 73 : 49 SEX: F ROOM/BED: D.1212 AUTHOR: ENDY,DOC PHYSICIAN: REFERRING PHYSICIAN: YOANA SANDERS DO DATE OF SERVICE: 11/23/18 Discharge Plan Patient Name: JHON RAJAN Facility: [facility]:[place] : 1945 Planned Disposition: Home Anticipated Discharge Date: 11/23/18 Discharge Date: 11/23/2018 Expected LOS: 3 Initial Reviewer: [email or web address] Initial Review Date: 11/20/2018 Generated: 11/23/18 4:18 pm Comments DCP- Discharge Planning Updated by [id number]: Kiki Bravo on 11/23/18 2:[address] LATE ENTRY 1350 CM MET WITH THE PATIENT AT THE BEDSIDE. SHE WAS DRESSED AND AWAITING HER . HE WILL BE PROVIDING TRANSPORTATION. THE PATIENT STATES SHE IS DISCOURAGED BECAUSE SHE DOES NOT KNOW WHAT IS WRONG WITH HER. STATES SHE STILL FEELS BAD. SHE WANST TO SEE HER OWN MD, DR SANDERS. SHE IS WORRIED SHE HAS 2 FOSTER CHILDREN AT HOME. SHE AND HER HAVE FOSTERED 70 CHILDREN OVER THE YEARS. SHE IS INDEPENDENT IN HER CARE. SHE LIVES W/ HER AND THEY ASSIST 2 YOUNG FOSTER CHILDREN. SHE DOES NOT HAVE ANY HOME HEALTH SERVICES. DOES NOT FEEL SHE NEEDS ANY COMMUNITY OR HOME HEALTH ASSIST. SHE HAS DIFFICULTY WITH HER KNEES. SHE HAS A WALKER AND RAISED TOILET SEAT. DISCUSSED DISCHARGE IMM. SIGNATURE OBTAINED. ORIGINAL COPY TO THE PATIENT AND SIGNED COPY TO THE CHART. PATIENT'S DAUGHTER CALLED JUST AFTER SHE HAD BEEN DISCHARGED. THE DAUGHTER WORKS FOR DR SANDERS. SHE IS CONCERNED HER MOTHER DOES NOT FEEL BETTER. SHE WILL DISCUSS WITH DR SANDERS PER HER MOTHER'S PLAN. CM REVIEWED CAT SCAN RESULT WHICH THE MOTHER HAD DISCUSSED WITH HER DTR SOME INFORMATION. AT HOME. DCPIA - Discharge Planning Initial Assessment Updated by [id number]: Kiki Bravo on 11/23/18 2:53 pm * Is the patient Alert and Oriented? Yes * PCP DR MARILYN NGUYỄN, [place] * Pharmacy [facility] * Preadmission Environment Home with Family * ADLs Independent * Equipment Cane * Other Equipment RAISED TOILET SEAT * List name and contact numbers for known caregivers / representatives who currently or will assist patient after discharge: ARNAUD RAJAN- [facility]- [phone] * Verbal permission to speak to the caregivers and representatives has been obtained from the patient. Yes * Community resources currently utilized None * Please name any agencies selected above. N/A * Additional services required to return to the preadmission environment? No * Can the patient safely return to the preadmission environment? Yes * Has this patient been hospitalized within the prior 30 days at any hospital? Yes Coverage Notice Reviewer: [id number] - Kiki Lawrence Notice Issued Date-Time: 11/23/2018 14:00 Notice Type: IM Discharge Notice Notice Delivered To: Patient Relationship to Patient: Self Electronic Device Repairer Name: Delivery Method: HAND - Hand Delivered Margarita Days: Prior Verbal Notification: Recipient Understood Notice: Yes Recipient Signature: Yes Med Rec Note Co-signed by Attending: Coverage Notice Comment: CM EXPLAINED DISCHARGE IMM. PATIENT HAD NO QUESTIONS . STATES SHE FEELS THE SAME WHEN SHE WAS ADMITTED. WANTS TO FOLLOW UP WITH DR SANDERS, HER PCP. SHE SIGNED DISCHARGE IMM, ORIGINAL TO THE PATIENT AND ORIGINAL TO THE CHART. Last DP export: 11/23/18 1:58 p Patient Name: JHON RAJAN Page [id number] at 1519 All edits/amendments must be made on the electronic document DICTATION DATE: 11/23/188 TUBE WRAPPER: EUNICE 11/23/18 1518 RPT#: [id number] DC DATE:11/23/18 STATUS: DIS IN [facility] [address] [place] [address] END OF REPORT
== END 2018-11-23 14:38 | disposition home or self-care (01) | DRG 377 ==
LOC: D.M3 13:37 → D.SDCHOLD 13:37 → D.M3 14:02
PROVIDERS: Internal Medicine Cardiovascular Disease; Internal Medicine Gastroenterology; Internal Medicine Nephrology; ADMIT Family Medicine; ATTEND Family Medicine
PROC: 0DJ08ZZ Inspection of Upper Intestinal Tract, Via Natural or Artificial Opening Endoscopic (ICD-10-PCS; principal; 2018-11-21 13:00)
PROC: B2111ZZ Fluoroscopy of Multiple Coronary Arteries using Low Osmolar Contrast (ICD-10-PCS; 2018-11-22)
PROC: B2151ZZ Fluoroscopy of Left Heart using Low Osmolar Contrast (ICD-10-PCS; 2018-11-22)
PROC: 4A023N7 Measurement of Cardiac Sampling and Pressure, Left Heart, Percutaneous Approach (ICD-10-PCS; 2018-11-22)
DX: K92.2 Gastrointestinal hemorrhage, unspecified (principal); J96.01 Acute respiratory failure with hypoxia; J18.1 Lobar pneumonia, unspecified organism; I25.110 Atherosclerotic heart disease of native coronary artery with unstable angina pectoris; D50.9 Iron deficiency anemia, unspecified; E03.9 Hypothyroidism, unspecified; I10 Essential (primary) hypertension; E83.42 Hypomagnesemia; E78.5 Hyperlipidemia, unspecified; E11.9 Type 2 diabetes mellitus without complications; K21.0 Gastro-esophageal reflux disease with esophagitis; K44.9 Diaphragmatic hernia without obstruction or gangrene

== ENCOUNTER 2018-12-21 09:46 | Outpatient (CLI) | payer MEDICARE, BC ==
[~2018-12-21 09:46] MED LIST changes: +LEVAQUIN750 MG PO
== END 2018-12-21 23:59 | disposition home or self-care (01) ==
LOC: D.MAMMO 09:46
PROVIDERS: ATTEND Family Medicine
DX: Z12.31 Encounter for screening mammogram for malignant neoplasm of breast (principal)

== ENCOUNTER 2019-01-09 07:52 | Day surgery (SDC) | payer MEDICARE, BC ==
[~2019-01-09] VITALS: Ht 165.1 cm; Wt 106.1 kg
[2019-01-09 08:16] LABS: HEMATOCRIT 38.6 % (36.0-48.0); HEMOGLOBIN 11.9 g/dL (12-16); MCH 25.3 pg (26.0-34.0); MCHC 30.8 g/dL (31.0-37.0); MCV 82.1 fL (80.0-100.0); MEAN PLATELET VOLUME 9.9 fL (7.4-10.4); RBC 4.7 10x6/uL (4.00-5.40); RDW 17.2 % (11.5-14.5); WBC 6.7 10x3/uL (4.8-10.8)
[2019-01-09 08:23] LABS: ANION GAP 15.1 mmol/L (8-16); CALCIUM 9.1 mg/dL (8.5-10.1); CARBON DIOXIDE 29.5 mmol/L (21.0-32.0); CREATININE - SERUM 0.9 mg/dL (0.6-1.3); POTASSIUM - SERUM 3.6 mmol/L (3.5-5.1)
[2019-01-09 08:33] VITALS: BP 180/81; Ht 165.1 cm; Wt 106.1 kg
[2019-01-09] MEDS ORDERED: MACROBID100 MG PO (08:45)
--- NOTE | 2019-01-09 16:44 | OP ---
PATIENT NAME: JHON RAJAN MEDICAL RECORD: [id number] :49 LOCATION:[facility] ADMISSION DATE: SURGEON: JARETT NOLASCO DO DATE OF OPERATION: 01/09/2019 PROCEDURE: Colonoscopy with polypectomy and biopsies. INDICATIONS FOR PROCEDURE: History of diverticulosis of the colon as well as iron deficiency anemia and a personal history of colon polyps. Her last colonoscopy was approximately 5 years ago. SCOPE: Olympus video pediatric colonoscope. MEDICATIONS: Propofol 370 mg IV per anesthesia. WITHDRAWAL TIME: 17 minutes. ESTIMATED BLOOD LOSS: Minimal. COMPLICATIONS: None. FINDINGS: Informed consent was given. The patient was made comfortable with the above medication. After reaching an adequate level of sedation by slow IV push, the patient was placed on her left side. A digital rectal examination was performed and was normal. The endoscope was then advanced under direct visualization through the rectum to the cecum and terminal ileum. The endoscope was slowly withdrawn and the mucosa was carefully examined. The prep quality was good. There were 4 polyps visualized on today's examination. The first was a benign appearing sessile polyp, which measured approximately 4-5 mm and was located in the cecum. It was removed using a hot snare in 1 piece and completely retrieved. In the ascending colon, there were two separate polyps, which were benign-appearing and sessile and ranged in size from 3-6 mm in diameter. The smaller of the 2 polyps was removed using hot forceps in 1 piece and completely retrieved. The larger polyp was removed using a hot snare in 1 piece and completely retrieved. In the transverse colon, there was a benign appearing sessile polyp, which measured approximately 4-5 mm in diameter. It was removed using a hot snare in 1 piece and completely retrieved. There was evidence of moderate diverticulosis involving the entire colon with the main focus of diverticula located in the sigmoid region. Retroflexion was performed in the rectum with a normal appearing rectal wall visualized. During the procedure, stool was collected to send for infectious studies regarding the patient's diarrhea and multiple random biopsies were taken to submit for histopathology and to rule out the presence of microscopic colitis. The endoscope was removed from the patient. The patient tolerated the procedure well and there were no complications. IMPRESSION: 1. Four polyps as described above, removed using a combination of a hot snare and hot forceps. 2. Moderate diverticulosis involving the entire colon with the main focus in the sigmoid colon. 3. Otherwise, normal colonoscopy. PLAN AND RECOMMENDATIONS: 1. Discharge home when recovery parameters are met. OPERATIVE REPORT [id number] JHON RAJAN 2. Follow up biopsy specimen results. 3. High fiber diet. 4. Continue current medications. 5. We will provide a prescription for cholestyramine 4 grams twice daily by 2 hours from other medications for the patient's ongoing diarrhea. 6. Follow up in the GI clinic in 4-6 weeks. 7. Recall colonoscopy in 3-5 years based on the polyps removed on today's examination. TRANSINT:[id number] Voice Confirmation ID: [id number] DOCUMENT ID: [id number] JARETT NOLASCO DO at 1644 CC: [id number] DICTATION DATE: 01/09/19 1046 SUPPLY CLERK: 01/09/19 1203 [facility] 01/09/[address] [id number]
== END 2019-01-09 11:25 | disposition home or self-care (01) ==
LOC: D.OPS 07:52
PROVIDERS: Anesthesiology; ATTEND Internal Medicine Gastroenterology
DX: K63.5 Polyp of colon (principal); Z86.010 Personal history of colon polyps; K57.90 Diverticulosis of intestine, part unspecified, without perforation or abscess without bleeding